=== PATIENT | female | born 1975 | race Caucasian/White ===

== ENCOUNTER 2018-04-09 19:36 | Emergency (ER) | payer MEDICAID, SELFPAY ==
[2018-04-09 19:37] VITALS: BP 163/87; PULSE 95; RESP 16; TEMP 36; O2SAT 100; BMI 36.3
[2018-04-09 19:42] VITALS: RESP 16
--- NOTE | 2018-04-09 19:48 | RAD_ITS ---
STUDY: X-RAY - RIGHT HAND, ATTENTION RIGHT DISTAL FIFTH FINGER REASON FOR EXAM: Female, 42 years old. Posttraumatic deformity TECHNIQUE: 3 view(s) of the finger were obtained. COMPARISON: None. FINDINGS: Normal metacarpal head. Normal metacarpophalangeal joint. Normal proximal phalanx. Normal middle phalanx. Normal distal phalanx. Normal proximal interphalangeal joint. Narrowed distal interphalangeal joint and osteophytic spurring. RAD/Finger(s) Min 2 Views IMPRESSION: Degenerative changes of the DIP joint. No acute fracture or dislocation Electronically Signed: Gwyn Jaquez MD at 20:36 EST , Service support ,
--- NOTE | 2018-04-09 20:10 | RAD_ITS ---
STUDY: X-RAY - RIGHT ELBOW REASON FOR EXAM: Female, 42 years old. Fall TECHNIQUE: 3 view(s) of the elbow. COMPARISON: None. FINDINGS: There is no evidence of fracture or dislocation. There are no significant degenerative changes. There are no radiodense foreign bodies. RAD/Elbow min 3 Views IMPRESSION: No fracture or dislocation. Electronically Signed: Tone Jauregui, at 20:31 EST Tel , Service support ,
--- NOTE | 2018-04-09 21:03 | ED.DCSUM_ITS ---
- ER Visit Summary Date of Service: 04/09/18 Chief Complaint: Right elbow pain History of Present Illness: The patient is a 42 F who states that 2 weeks ago she sustained a hyperextension injury while moving a washer of the right elbow. She states that never got back to baseline and then 2 days ago she sustained a fall coming down and injuring the right elbow again. She also notes pain to the right little finger. She notes she cannot fully extend at the elbow due to pain. She points posteriorly as the area that hurts. Physical Examination: Afebrile vital signs are stable 1. Please see T-sheet for full details 2. Right elbow shows tenderness over the olecranon and the lateral supracondylar region of the humerus. There is no obvious deformity. The radial head is nontender. She reports pain with supination and pronation as well as extension. 3. The right little finger demonstrates tenderness and bony deformities consistent with arthritic changes at the DIP joint. There appears to be a slight lateral deviation at the DIP joint of the distal phalanx. Neurovascular intact Test Results: X-rays of the elbow and the finger were negative for fracture. Emergency Department Course and Treatment: AlumaFoam splint will be placed. I suspect ligamentous injury. The elbow will use sling for comfort. Encouraged her not use it except for comfort purposes. Ice anti-inflammatories. Follow-up with primary care. Impression: 1. Right elbow sprain 2. Right little finger DIP sprain This note was generated with [employer] dictation software. It may contain incorrect words, spelling, and punctuation that were not noted in review of the chart prior to signing ED Disposition - Plan for ED Patient: Disposition: Home or Assisted Living Chief Complaint: Upper Extremity Injury Instructions: ED Sprain Elbow, ED Sprain Finger Referrals: Gwyn Mancia MD [Primary Care Provider] - 10-14 Days if not better
[2018-04-09 21:18] VITALS: BP 134/86; PULSE 84; RESP 16; O2SAT 99
--- OUTSIDE RECORDS SUMMARY | 2018-06-05 10:07 | XMS RPT_ITS ---
:1975 Author Organization OHIP Care Team Providers Name Role Phone FridleyOmkar Attending Unavailable Gwyn Small Primary Care Unavailable RUBY DICK Admitting Unavailable EDWARD CHOI Attending Unavailable LIZZY TAN Consulting Unavailable DANIEL BALDWIN (PA-C) Attending Unavailable GWYN SMALL Attending Unavailable GWYN SMALL Referring Unavailable JNANETH GREGORY (PA) Attending Unavailable GWYN SMALL Referring Unavailable JANNETH GREGORY (PA) Attending Unavailable GWYN SMALL Attending Unavailable GWYN SMALL Referring Unavailable JANNETH GREGORY (PA) Attending Unavailable JANNETH GREGORY (PA) Referring Unavailable MARYAM MCLAIN Admitting Unavailable MARYAM MCLAIN Attending Unavailable GWYN SMALL Primary Care Unavailable MARYAM MCLAIN Attending Unavailable GWYN SMALL Primary Care Unavailable ERIN MCCARTNEY Attending Unavailable GWYN SMALL Primary Care Unavailable PROBLEMS PROBLEMS DATE TYPE CONDITION / CODE ATTENDING STATUS SOURCE Active Bronchitis, not NA Active [facility] 8 specified as acute or Clinic Main chronic / J40(ICD-10) [facility] Active Jaw pain / EDWARD CHOI [facility] 8 R68.84(ICD-10) Clinic Other [facility] Active Abnormal EDWARD CHOI [facility] 8 electrocardiogram Clinic Other (ECG) (EKG) / [facility] R94.31(ICD-10) Repository Active Palpitations / EDWARD CHOI [facility] 8 R00.2(ICD-10) Clinic Other [facility] Active Other fpc NA [facility] 8 (current) drug therapy Clinic Main / Z79.899(ICD-10) [facility] Active Hypothyroidism, NA [facility] 8 unspecified / Clinic Main E03.9(ICD-10) [facility] Active Gastro-esophageal NA [facility] 8 reflux disease without Clinic Main esophagitis / [facility] K21.9(ICD-10) Repository Active Hyperlipidemia, NA [facility] 4 unspecified / Clinic Main E78.5(ICD-10) [facility] Main (PA-C) [facility] Admitting Loose body in knee, MARYAM MCLAIN [facility] 8 diagnosis right knee / Repository M23.41(ICD-9) Final Loose body in knee, MARYAM MCLAIN [facility] 8 diagnosis right knee / Repository (discharge) M23.41(ICD-9) Admitting Pain in right knee / NITINJEFFLAURYN MARYAM [facility] 7 diagnosis M25.561(ICD-9) Repository Final Pain in right knee / NITINJEFFLAURYN [facility] 7 diagnosis M25.561(ICD-9) Repository (discharge) Final Sprain of unspecified MARYAM MCLAIN [facility] 7 diagnosis site of right knee, Repository (discharge) initial encounter / S83.91XA(ICD-9) PROCEDURES PROCEDURES No Procedure Records FoundRESULTS RESULTS EMERGENCY DEPARTMENT Observed: 04/11/2018 Status: F Source: ERIN SUMMARY 8:16 AM [facility] REPOSITORY [facility] Medical Records Department [address] [place] [address] Emergency Department Summary 04/09/182101 MR#: [id number] Acct: [id number] Name: JOÃO CASTILLO Rep #: [id number] : 1975 42 From: Omkar Mantilla DO PCP: Gwyn Small MD Status: DEP ER - ER Visit Summary Date of Service: 04/09/18 Chief Complaint: Right elbow pain History of Present Illness: The patient is a 42 F who states that 2 weeks ago she sustained a hyperextension injury while moving a washer of the right elbow. She states that never got back to baseline and then 2 days ago she sustained a fall coming down and injuring the right elbow again. She also notes pain to the right little finger. She notes she cannot fully extend at the elbow due to pain. She points posteriorly as the area that hurts. Physical Examination: Afebrile vital signs are stable 1. Please see T-sheet for full details 2. Right elbow shows tenderness over the olecranon and the lateral supracondylar region of the humerus. There is no obvious deformity. The radial head is nontender. She reports pain with supination and pronation as well as extension. 3. The right little finger demonstrates tenderness and bony deformities consistent with arthritic changes at the DIP joint. There appears to be a slight lateral deviation at the DIP joint of the distal phalanx. Neurovascular intact Test Results: X-rays of the elbow and the finger were negative for fracture. Emergency Department Course and Treatment: AlumaFoam splint will be placed. I suspect ligamentous injury. The elbow will use sling for comfort. Encouraged her not use it except for comfort purposes. Ice anti-inflammatories. Follow-up with primary care. Impression: 1. Right elbow sprain 2. Right little finger DIP sprain This note was generated with scrible dictation software. It may contain incorrect words, spelling, and punctuation that were not noted in review of the chart prior to signing ED Disposition - Plan for ED Patient: Disposition: Home or Assisted Living Chief Complaint: Upper Extremity Injury Instructions: ED Sprain Elbow, ED Sprain Finger Referrals: Gwyn Small MD [Primary Care Provider] - 10-14 Days if not better What to do if you have Problems For any increased pain, shortness of breath, bleeding, nausea or vomiting, chest pain, or any unexpected problems, contact your Primary Care Provider. Call [facility] ([phone]) or report to the closest Emergency Room. Call 911 if necessary. 04/11/18 0816 <Electronically signed by Omkar Mantilla DO> Date Omkar Mantilla DO Cosigner Signature (If Indicated): Date CC: Gwyn Small MD ELBOW MIN 3 VIEWS Observed: 04/09/2018 Status: F Source: [place] 7:51 PM [facility] REPOSITORY [facility] Imaging Services [address] [place] [address] [place] [address] Elbow min 3 Views MR#: [id number] Acct: [id number] Name: JOÃO CASTILLO Brent Rep #: [id number] : 1975 F 42 From: Tone Jauregui MD PCP: Gwyn Small MD Status: REG ER Study: Elbow min 3 Views Date of Exam: 04/09/18 Exam# [id number] Ordering Dr: Omkar Mantilla DO STUDY: X-RAY - RIGHT ELBOW REASON FOR EXAM: Female, 42 years old. Fall TECHNIQUE: 3 view(s) of the elbow. COMPARISON: None. FINDINGS: There is no evidence of fracture or dislocation. There are no significant degenerative changes. There are no radiodense foreign bodies. RAD/Elbow min 3 Views IMPRESSION: No fracture or dislocation. Electronically Signed: Tone Jauregui, at 20:31 EST Tel , Service support , CC: Omkar Mantilla DO; Gwyn Small MD Mica Splitter: Signed FINGER(S) MIN 2 VIEWS Observed: 04/09/2018 Status: F Source: [place] 7:51 PM [facility] REPOSITORY [facility] Imaging Services [address] [address] Finger(s) Min 2 Views MR#: [id number] Acct: [id number] Name: JOÃO CASTILLO Rep #: [id number] : 1975 F 42 From: Gwyn Jaquez MD PCP: Gwyn Small MD Status: REG ER Study: Finger(s) Min 2 Views Date of Exam: 04/09/18 Exam# [id number] Ordering Dr: Omkar Mantilla DO STUDY: X-RAY - RIGHT HAND, ATTENTION RIGHT DISTAL FIFTH FINGER REASON FOR EXAM: Female, 42 years old. Posttraumatic deformity TECHNIQUE: 3 view(s) of the finger were obtained. COMPARISON: None. FINDINGS: Normal metacarpal head. Normal metacarpophalangeal joint. Normal proximal phalanx. Normal middle phalanx. Normal distal phalanx. Normal proximal interphalangeal joint. Narrowed distal interphalangeal joint and osteophytic spurring. RAD/Finger(s) Min 2 Views IMPRESSION: Degenerative changes of the DIP joint. No acute fracture or dislocation Electronically Signed: Gwyn Jaquez MD at 20:36 EST , Service support , CC: Omkar Mantilla DO; Gwyn Small MD Mica Splitter: Signed XR CHEST 2V FRONTAL/LAT Observed: 01/21/2018 Status: F Source: [place] 2:58 PM [facility] REPOSITORY * * *Final Report* * * DATE OF EXAM: Jan 21 2018 2:58PM WOX [id number] - XR CHEST 2V FRONTAL/LAT / PROCEDURE REASON: Bronchitis, not specified as acute or chronic * * * * Physician Interpretation * * * * EXAMINATION: CHEST RADIOGRAPH (2 VIEW FRONTAL and LATERAL) CLINICAL HISTORY: Bronchitis, not specified as acute or chronic MQ: XC2_5 Comparison: 10/30/2017 RESULT: Lines, tubes, and devices: None. Lungs and pleura: No consolidation. No lung mass. No pleural effusion. Cardiomediastinal silhouette: Normal cardiomediastinal silhouette. IMPRESSION: No acute radiographic abnormality. Mica Splitter: PSCB Transcribe Date/Time: Jan 21 2018 3:18P Dictated by : LEIDY OSULLIVAN MD This examination was interpreted and the report reviewed and electronically signed by: LEIDY OSULLIVAN MD on Jan 21 2018 3:19PM EST [id number] PROGRESS Observed: 01/21/2018 Status: COMPLETED Source: [place] 2:49 PM [facility] REPOSITORY HNO ID: [id number] Author: Ambrosio Lewis () Jason Awad Service: (none) Author Type: Client Technical Professional Type: Progress Notes Filed: 01/21/2018 2:58 PM Note Text: Radiology Service Progress Note PATIENT NAME: João Castillo DATE OF SERVICE: January 21, 2018 TIME: 2:49 PM PATIENT IDENTITY VERIFICATION COMPLETED USING TWO (2) METHODS: Patient confirmed name verbally and Date of . PATIENT GENDER DATA: Female. status: : No status: NO. PATIENT RELEVANT IMPLANT DATA REVIEWED: Not Applicable RADIOLOGY DEPARTMENT: General X-ray: Exam(s) Completed: Chest X-Ray PERIPHERAL IV DATA: Not applicable SIGNED BY: RT Isatu January 21, 2018 2:49 PM CNOV Observed: 01/21/2018 Status: COMPLETED Source: [place] 2:20 PM [facility] REPOSITORY Office Visit (FAMPWS) JOÃO CASTILLO ([id number]) 1975 F Date Time Provider Department 01/21/18 2:20 PM JASON GREGORY) LU During your visit today, we recorded the following information about you: Temperature Pulse Respiration Blood pressure 98.6 degrees 83/minute 16/minute 118/82 Weight 101.6 kg JANNETH GREGORY PA-C 01/21/2018 2:39 PM Signed Patient presents with: Cough: cough and chest congestion x 2 weeks 42 year old female with c/o URI sx over the last 2 weeks with Sore throat: No. Nasal congestion: Yes. Nasal drip: Yes. Sinus pain/ pressure: No. Headache No. Body aches Yes. Ear pain: pressure. Cough: Yes. Production: Yes. yellow Shortness of Breath: Yes. Wheezing: Yes. Fever: Yes. Tmax 101.8 last week. Hx asthma Yes. Hx pneumonia No. Smoker: No. OTC meds tried: mucinex. Was seen be EC on 01/16/18 and give doxycycline and prednisone. She is still taking the doxy but finished prednisone on Sunday. 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 Disp: 10 tablet Rfl: 0 doxycycline (VIBRA-TABS) 100 mg tablet Take 1 tablet by mouth twice daily for 10 days. Disp: 20 tablet Rfl: 0 Ofnbs-3-LFN-EPA-Fish Oil (FISH OIL) 1,000 mg (120 mg-180 mg) cap Take 2 g by mouth once daily. Disp: Rfl: therapeutic multivitamin w/ iron (THERAGRAN-M) 9 mg iron-400 mcg tablet Take 1 tablet by mouth once daily. Disp: Rfl: lisdexamfetamine (VYVANSE) 20 mg capsule Take 20 mg by mouth once daily. .(Dose INCREASED to 30mg, but patient has NOT filled new Rx yet) Disp: Rfl: albuterol HFA (PROAIR HFA) 90 mcg/actuation inhaler Inhale 2 Puffs as instructed every 4 hours as needed. Disp: 1 Inhaler Rfl: 2 esomeprazole (NEXIUM) 40 mg capsule Take 1 capsule by mouth once daily. Disp: 90 capsule Rfl: 1 fluticasone (FLOVENT HFA) 110 mcg/actuation inhaler Inhale 1 Puff as instructed twice daily. Disp: 1 Inhaler Rfl: 5 COMPOUNDED PRESCRIPTION CPAP with supplies at 9 CM H2O with humidification.Dx: G47.33 Disp: 1 Device Rfl: 0 COMPOUNDED PRESCRIPTION CPAP with supplies at 9 CM H2O with humidification.Dx: G47.33 Disp: 1 Device Rfl: 0 COMPOUNDED PRESCRIPTION CPAP with supplies at 9 CM H2O with humidification.Dx: G47.33 Disp: 1 Device Rfl: 0 metoprolol tartrate, short acting, (LOPRESSOR) 25 mg tablet Take 0.5 tablets by mouth twice daily as needed. (Patient not taking: Reported on 01/16/2018 ) Disp: 30 tablet Rfl: 0 No current facility-administered medications for this visit. ROS: SEE HPI OBJECTIVE: BP 118/82 (BP Site: Left Arm, BP Position: Sitting, BP Cuff Size: Large Adult) Pulse 83 Temp 37 ?C (98.6 ?F) (Tympanic) Resp 16 Wt 101.6 kg (224 lb) LMP 01/26/2011 SpO2 98% BMI 36.15 kg/m? General appearance: Well appearing, alert, in no acute distress, well-hydrated, well nourished., Head: Normocephalic, no masses, lesions, tenderness or abnormalities; Ears: External ears normal, canals clear, TM's normal Nose/Sinuses: Nares normal, septum midline, mucosa normal, no drainage or sinus tenderness Oropharynx: Lips, mucosa, and tongue normal, teeth and gums normal, oropharynx normal Neck: Supple, no adenopathy; thyroid symmetric, normal size, no bruits Lungs: Lungs clear to auscultation. No wheezing, rhonchi, rales Heart: RRR without murmur, gallop, or rubs. No ectopy ASSESSMENT/PLAN: 1. Bronchitis - ICD9: 490, ICD10: J40 Will switch antibiotic to levaquin CXR today May use cough medication as needed. - XR CHEST 2V FRONTAL/LAT - CODEINE 10 MG-GUAIFENESIN 100 MG/5 ML ORAL LIQUID Prescription instructions reviewed with patient as applicable. Patient advised if symptoms do not improve or if symptoms worsen sooner, to contact their primary care physician. Potential red flag symptoms discussed with the patient. Reviewed appropriate action plan to take if red flag symptoms occur. Patient agreeable to treatment plan. JANNETH GREGORY PA-C Referring Provider: SELF [200] Allergies As of Date: 01/21/2018 Noted Allergy Reaction KEFLEX (CEPHALEXIN) 04/29/2010 10 - Anaphylaxis PENICILLINS 04/29/2010 2 - Rash Comments: 10/30/17: patient reports skin test performed in early 2016 showed she is not allergic to penicillins anymore, but patient has not tried any pencillin since skin test results. TAPE (ADHESIVE TAPE (ROSINS)) 05/16/2012 2 - Rash ADDERALL (DEXTROAMPHETAMINE-AMPHE*07/30/2017 14 - Other: See Comments Comments: elevated blood pressure CELEXA (CITALOPRAM HYDROBROMIDE) 11/08/2017 14 - Other: See Comments Comments: Syncope and diaphoresis SEASONAL ALLERGIES 05/23/2012 14 - Other: See Comments Comments: Cats, Molds VYVANSE (LISDEXAMFETAMINE) 01/21/2018 14 - Other: See Comments Comments: Tachycardia- per patient. ? ZOLOFT (SERTRALINE HCL) 06/12/2014 14 - Other: See Comments Comments: Made her feel horrible Date Reviewed: 01/21/2018 Reviewed by: Barry Gregory - Fully Assessed Reason for Visit: Cough [28] Cmt: cough and chest congestion x 2 weeks Primary Visit Diagnosis:Bronchitis [J40] Order(s):XR CHEST 2V FRONTAL/LAT [[id number]] Order #: [id number] FUTURE levoFLOXacin (LEVAQUIN) 500 mg tabletTake 1 tablet by mouth once daily for 7 days.Disp: 7 tabletRfl: 0 codeine-guaiFENesin (ROBITUSSIN AC) 10-100 mg/5 mL syrupTake 5-10 mL by mouth four times daily as needed for Cough for up to 7 days. May cause drowsiness.Disp: 120 mLRfl: 0 Prescriptions as of 01/21/2018 Sig: OMEGA 0-UDP-QLB-FISH OIL 1,00* Take 2 g by mouth once daily. MULTIVITAMIN-IRON 9 MG-FOLIC * Take 1 tablet by mouth once d* ALBUTEROL SULFATE HFA 90 MCG/* Inhale 2 Puffs as instructed * ESOMEPRAZOLE MAGNESIUM 40 MG * Take 1 capsule by mouth once * FLUTICASONE 110 MCG/ACTUATION* Inhale 1 Puff as instructed t* COMPOUNDED PRESCRIPTION CPAP with supplies at 9 CM H2* COMPOUNDED PRESCRIPTION CPAP with supplies at 9 CM H2* COMPOUNDED PRESCRIPTION CPAP with supplies at 9 CM H2* LEVOFLOXACIN 500 MG TABLET Take 1 tablet by mouth once d* CODEINE 10 MG-GUAIFENESIN 100* Take 5-10 mL by mouth four ti* METOPROLOL TARTRATE 25 MG TAB* Take 0.5 tablets by mouth twi* Patient not taking: Reported on 01/16/2018 Medication notes this encounter LISDEXAMFETAMINE 20 MG CAPSULE >> JANNETH GREGORY PA-C 01/21/2018 2:20 PM tachycardia Problem List As Of Date 01/21/2018 Noted Resolved Allergic rhinitis [J30.9] INVALID FOR* Priority: B Mild persistent asthma [J45.30] INVALID FOR* Priority: A More... Dyslipidemia [E78.5] INVALID FOR* Priority: A Tic douloureux [G50.0] Priority: A More... Multiple lung nodules [R91.8] Priority: B More... More... Routine gynecological examination [Z01.419] INVALID FOR* Priority: D More... Incisional hernia without mention of obstructio*INVALID FOR* ADHD (attention deficit hyperactivity disorder)*INVALID FOR* Priority: A More... Hyperopia with astigmatism - Both Eyes [H52.00,*INVALID FOR* SOLANGE (obstructive sleep apnea) AHI 17.1 [G47.33] INVALID FOR* Priority: B More... Gastroesophageal reflux disease without esophag*INVALID FOR* Priority: A More... Acquired hypothyroidism [E03.9] INVALID FOR* Priority: A Current use of proton pump inhibitor [Z79.899] INVALID FOR* Palpitations [R00.2] INVALID FOR*10/31/2017 More... Prescriptions ordered this encounter Disp Refills Start End LEVOFLOXACIN 500 MG TABLET 7 ta* 0 01/21/2018 01/28/2018 Route: ORAL Sig: Take 1 tablet by mouth once daily for 7 days. CODEINE 10 MG-GUAIFENESIN 100 MG/5 M* 120 * 0 01/21/2018 01/28/2018 Class: Print RX Route: ORAL Sig: Take 5-10 mL by mouth four times daily as needed for Cough for up to 7 days. May cause drowsiness. Medications Discontinued During This Encounter lisdexamfetamine (VYVANSE) 20 mg cap* 01/21/2018 Class: Historical Med Route: ORAL Sig: Take 20 mg by mouth once daily. . (Dose INCREASED to 30mg, but patient has NOT filled new Rx yet) Disc: Side Effects doxycycline (VIBRA-TABS) 100 mg tabl* 20 t* 0 01/16/2018 01/21/2018 Route: ORAL Sig: Take 1 tablet by mouth twice daily for 10 days. Disc: Reason for discontinue is not on file. predniSONE (DELTASONE) 20 mg tablet 10 t* 0 01/16/2018 01/21/2018 Route: ORAL Sig: Take 2 tablets by mouth once daily for 5 days. Disc: Reason for discontinue is not on file. Letter Text Janneth Gregory PA-C [address], [place] [address] 01/21/2018 João Castillo CC# [id number] [place] [address] TO WHOM IT MAY CONCERN: This is to certify that Ms. João Castillo has been under my care for illness and was unable to work01/19/18 Sincerely yours, Janneth Gregory PA-C Encounter Status:Closed by JANNETH GONZALES on 01/21/18 PROGRESS Observed: 01/21/2018 Status: COMPLETED Source: [place] 2:12 PM [facility] REPOSITORY HNO ID: [id number] Author: Barry Gregory Service: (none) Author Type: Physician Yard Hostler Type: Progress Notes Filed: 01/21/2018 2:39 PM Note Text: Patient presents with: Cough: cough and chest congestion x 2 weeks 42 year old female with c/o URI sx over the last 2 weeks with Sore throat: No. Nasal congestion: Yes. Nasal drip: Yes. Sinus pain/ pressure: No. Headache No. Body aches Yes. Ear pain: pressure. Cough: Yes. Production: Yes. yellow Shortness of Breath: Yes. Wheezing: Yes. Fever: Yes. Tmax 101.8 last week. Hx asthma Yes. Hx pneumonia No. Smoker: No. OTC meds tried: mucinex. Was seen be EC on 01/16/18 and give doxycycline and prednisone. She is still taking the doxy but finished prednisone on Sunday. 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 Disp: 10 tablet Rfl: 0 doxycycline (VIBRA-TABS) 100 mg tablet Take 1 tablet by mouth twice daily for 10 days. Disp: 20 tablet Rfl: 0 Hskqf-4-KEI-EPA-Fish Oil (FISH OIL) 1,000 mg (120 mg-180 mg) cap Take 2 g by mouth once daily. Disp: Rfl: therapeutic multivitamin w/ iron (THERAGRAN-M) 9 mg iron-400 mcg tablet Take 1 tablet by mouth once daily. Disp: Rfl: lisdexamfetamine (VYVANSE) 20 mg capsule Take 20 mg by mouth once daily. .(Dose INCREASED to 30mg, but patient has NOT filled new Rx yet) Disp: Rfl: albuterol HFA (PROAIR HFA) 90 mcg/actuation inhaler Inhale 2 Puffs as instructed every 4 hours as needed. Disp: 1 Inhaler Rfl: 2 esomeprazole (NEXIUM) 40 mg capsule Take 1 capsule by mouth once daily. Disp: 90 capsule Rfl: 1 fluticasone (FLOVENT HFA) 110 mcg/actuation inhaler Inhale 1 Puff as instructed twice daily. Disp: 1 Inhaler Rfl: 5 COMPOUNDED PRESCRIPTION CPAP with supplies at 9 CM H2O with humidification.Dx: G47.33 Disp: 1 Device Rfl: 0 COMPOUNDED PRESCRIPTION CPAP with supplies at 9 CM H2O with humidification.Dx: G47.33 Disp: 1 Device Rfl: 0 COMPOUNDED PRESCRIPTION CPAP with supplies at 9 CM H2O with humidification.Dx: G47.33 Disp: 1 Device Rfl: 0 metoprolol tartrate, short acting, (LOPRESSOR) 25 mg tablet Take 0.5 tablets by mouth twice daily as needed. (Patient not taking: Reported on 01/16/2018 ) Disp: 30 tablet Rfl: 0 No current facility-administered medications for this visit. ROS: SEE HPI OBJECTIVE: BP 118/82 (BP Site: Left Arm, BP Position: Sitting, BP Cuff Size: Large Adult) Pulse 83 Temp 37 ?C (98.6 ?F) (Tympanic) Resp 16 Wt 101.6 kg (224 lb) LMP 01/26/2011 SpO2 98% BMI 36.15 kg/m? General appearance: Well appearing, alert, in no acute distress, well-hydrated, well nourished., Head: Normocephalic, no masses, lesions, tenderness or abnormalities; Ears: External ears normal, canals clear, TM's normal Nose/Sinuses: Nares normal, septum midline, mucosa normal, no drainage or sinus tenderness Oropharynx: Lips, mucosa, and tongue normal, teeth and gums normal, oropharynx normal Neck: Supple, no adenopathy; thyroid symmetric, normal size, no bruits Lungs: Lungs clear to auscultation. No wheezing, rhonchi, rales Heart: RRR without murmur, gallop, or rubs. No ectopy ASSESSMENT/PLAN: 1. Bronchitis - ICD9: 490, ICD10: J40 Will switch antibiotic to levaquin CXR today May use cough medication as needed. - XR CHEST 2V FRONTAL/LAT - CODEINE 10 MG-GUAIFENESIN 100 MG/5 ML ORAL LIQUID Prescription instructions reviewed with patient as applicable. Patient advised if symptoms do not improve or if symptoms worsen sooner, to contact their primary care physician. Potential red flag symptoms discussed with the patient. Reviewed appropriate action plan to take if red flag symptoms occur. Patient agreeable to treatment plan. JANNETH GREGORY PA-C CNCO Observed: 01/21/2018 Status: COMPLETED Source: [place] 12:00 AM [facility] REPOSITORY Letter Text [facility] ERWIN Marsh [address], [place] [address] 01/16/2018 TO WHOM IT MAY CONCERN: This is to confirm that João Castillo had an appointment and was seen at the [facility] in the Department of Urgent Care by ERWIN Marsh on 01/16/2018 Sincerely yours, ERWIN Marsh PROGRESS Observed: 01/16/2018 Status: COMPLETED Source: [place] 1:47 PM [facility] REPOSITORY HNO ID: [id number] Author: Yanna Mercado) Momo Service: (none) Author Type: Physician Yard Hostler Type: Progress Notes Filed: 01/16/2018 4:13 PM Note Text: Subjective HPI Pt presents with headache, congestion, chills for 2 weeks. She has a mild cough. No nvd. She had a fever the first two days but nothing since. She is a former smoker quit in 2011. She also has asthma, no wheezing. No cp or SOB. Her teeth hurt from her sinuses as well. Review of Systems HENT: Positive for congestion, sinus pain and sore throat. Respiratory: Positive for cough. All other systems reviewed and are negative. PAST MEDICAL HISTORY Diagnosis Date - Asthma - Attention deficit hyperactivity disorder, predominantly inattentive type - Carpal tunnel syndrome - Environmental allergies - GERD (gastroesophageal reflux disease) on ppi - Hyperlipidemia - Hypothyroid - Multiple lung nodules followed by pulmonology - Tardive dyskinesia Ativan - Tic douloureux myoclonus jerk, more with stress, caffeine Current Outpatient Prescriptions: Syzdu-8-FAV-EPA-Fish Oil (FISH OIL) 1,000 mg (120 mg-180 mg) cap Take 2 g by mouth once daily. Disp: Rfl: therapeutic multivitamin w/ iron (THERAGRAN-M) 9 mg iron-400 mcg tablet Take 1 tablet by mouth once daily. Disp: Rfl: albuterol HFA (PROAIR HFA) 90 mcg/actuation inhaler Inhale 2 Puffs as instructed every 4 hours as needed. Disp: 1 Inhaler Rfl: 2 esomeprazole (NEXIUM) 40 mg capsule Take 1 capsule by mouth once daily. Disp: 90 capsule Rfl: 1 fluticasone (FLOVENT HFA) 110 mcg/actuation inhaler Inhale 1 Puff as instructed twice daily. Disp: 1 Inhaler Rfl: 5 COMPOUNDED PRESCRIPTION CPAP with supplies at 9 CM H2O with humidification.Dx: G47.33 Disp: 1 Device Rfl: 0 COMPOUNDED PRESCRIPTION CPAP with supplies at 9 CM H2O with humidification.Dx: G47.33 Disp: 1 Device Rfl: 0 COMPOUNDED PRESCRIPTION CPAP with supplies at 9 CM H2O with humidification.Dx: G47.33 Disp: 1 Device Rfl: 0 predniSONE (DELTASONE) 20 mg tablet Take 2 tablets by mouth once daily for 5 days. Disp: 10 tablet Rfl: 0 doxycycline (VIBRA-TABS) 100 mg tablet Take 1 tablet by mouth twice daily for 10 days. Disp: 20 tablet Rfl: 0 metoprolol tartrate, short acting, (LOPRESSOR) 25 mg tablet Take 0.5 tablets by mouth twice daily as needed. (Patient not taking: Reported on 01/16/2018 ) Disp: 30 tablet Rfl: 0 lisdexamfetamine (VYVANSE) 20 mg capsule Take 20 mg by mouth once daily. .(Dose INCREASED to 30mg, but patient has NOT filled new Rx yet) Disp: Rfl: No current facility-administered medications for this visit. PAST SURGICAL HISTORY Procedure Laterality Date - HYSTERECTOMY HX May 2012 lap:fibroids, no cancer, uterus and cervix only - KNEE RIGHT OP SURGERY arthroscopy - REMOVAL GALLBLADDER lap constantino - REPAIR INCISIONAL HERNIA 03/30/2014 - RHINOPLASTY 2004 deviated septum - TONSILLECTOMY HX FAMILY HISTORY Problem Relation Age of Onset - Hypertension Mother - other (colorectal cancer [Other]) Other Aunt - Hypertension Maternal Grandmother - Stroke Maternal Grandmother - Hypertension Maternal Grandfather - Diabetes Maternal Grandfather - Glaucoma Maternal Grandfather - Breast Cancer Maternal Aunt 6 sisters have had breast cancer - Breast Cancer Mother - Diabetes Maternal Grandmother Social History Substance Use Topics - Smoking status: Former Smoker Packs/day: 0.20 Years: 10.00 Types: Cigarettes Quit date: 04/22/2012 - Smokeless tobacco: Never Used - Alcohol use Yes Comment: special occasions BP 130/80 Pulse 86 Temp 36.9 ?C (98.5 ?F) (Tympanic) Resp 16 Wt 103 kg (227 lb) LMP 01/26/2011 SpO2 97% BMI 36.64 kg/m? Objective Physical Exam Constitutional: She is oriented to person, place, and time and well-developed, well-nourished, and in no distress. HENT: Head: Normocephalic and atraumatic. Right Ear: Tympanic membrane, external ear and ear canal normal. Left Ear: External ear and ear canal normal. A middle ear effusion is present. Nose: Mucosal edema and rhinorrhea present. Right sinus exhibits maxillary sinus tenderness. Left sinus exhibits maxillary sinus tenderness. Mouth/Throat: Uvula is midline, oropharynx is clear and moist and mucous membranes are normal. Cardiovascular: Normal rate, regular rhythm and normal heart sounds. Pulmonary/Chest: Effort normal and breath sounds normal. Neurological: She is alert and oriented to person, place, and time. Skin: Skin is warm and dry. Psychiatric: Affect and judgment normal. Nursing note and vitals reviewed. ASSESSMENT/PLAN: 1. Acute non-recurrent maxillary sinusitis - ICD9: 461.0, ICD10: J01.00 - Will begin treatment with Doxycline and prednisone. While taking prednisone patient was informed not to take any nsaids. - Supportive care with plenty of fluids, rest, and analgesia prn. - Follow up in one week if symptoms persist or worsen. Yanna Harden PA-C CNOV Observed: 01/16/2018 Status: COMPLETED Source: [place] 1:45 PM [facility] REPOSITORY Office Visit (WSTR) JOÃO CASTILLO ([id number]) 1975 F Date Time Provider Department 01/16/18 1:45 PM YANNA HARDEN (ERWIN) [facility]STR During your visit today, we recorded the following information about you: Temperature Pulse Respiration Blood pressure 98.5 degrees 86/minute 16/minute 130/80 Weight 103 kg Yanna Harden PA-C 01/16/2018 4:13 PM Signed Subjective HPI Pt presents with headache, congestion, chills for 2 weeks. She has a mild cough. No nvd. She had a fever the first two days but nothing since. She is a former smoker quit in 2011. She also has asthma, no wheezing. No cp or SOB. Her teeth hurt from her sinuses as well. Review of Systems HENT: Positive for congestion, sinus pain and sore throat. Respiratory: Positive for cough. All other systems reviewed and are negative. PAST MEDICAL HISTORY Diagnosis Date - Asthma - Attention deficit hyperactivity disorder, predominantly inattentive type - Carpal tunnel syndrome - Environmental allergies - GERD (gastroesophageal reflux disease) on ppi - Hyperlipidemia - Hypothyroid - Multiple lung nodules followed by pulmonology - Tardive dyskinesia Ativan - Tic douloureux myoclonus jerk, more with stress, caffeine Current Outpatient Prescriptions: Rpjgf-2-ECJ-EPA-Fish Oil (FISH OIL) 1,000 mg (120 mg-180 mg) cap Take 2 g by mouth once daily. Disp: Rfl: therapeutic multivitamin w/ iron (THERAGRAN-M) 9 mg iron-400 mcg tablet Take 1 tablet by mouth once daily. Disp: Rfl: albuterol HFA (PROAIR HFA) 90 mcg/actuation inhaler Inhale 2 Puffs as instructed every 4 hours as needed. Disp: 1 Inhaler Rfl: 2 esomeprazole (NEXIUM) 40 mg capsule Take 1 capsule by mouth once daily. Disp: 90 capsule Rfl: 1 fluticasone (FLOVENT HFA) 110 mcg/actuation inhaler Inhale 1 Puff as instructed twice daily. Disp: 1 Inhaler Rfl: 5 COMPOUNDED PRESCRIPTION CPAP with supplies at 9 CM H2O with humidification.Dx: G47.33 Disp: 1 Device Rfl: 0 COMPOUNDED PRESCRIPTION CPAP with supplies at 9 CM H2O with humidification.Dx: G47.33 Disp: 1 Device Rfl: 0 COMPOUNDED PRESCRIPTION CPAP with supplies at 9 CM H2O with humidification.Dx: G47.33 Disp: 1 Device Rfl: 0 predniSONE (DELTASONE) 20 mg tablet Take 2 tablets by mouth once daily for 5 days. Disp: 10 tablet Rfl: 0 doxycycline (VIBRA-TABS) 100 mg tablet Take 1 tablet by mouth twice daily for 10 days. Disp: 20 tablet Rfl: 0 metoprolol tartrate, short acting, (LOPRESSOR) 25 mg tablet Take 0.5 tablets by mouth twice daily as needed. (Patient not taking: Reported on 01/16/2018 ) Disp: 30 tablet Rfl: 0 lisdexamfetamine (VYVANSE) 20 mg capsule Take 20 mg by mouth once daily. .(Dose INCREASED to 30mg, but patient has NOT filled new Rx yet) Disp: Rfl: No current facility-administered medications for this visit. PAST SURGICAL HISTORY Procedure Laterality Date - HYSTERECTOMY HX May 2012 lap:fibroids, no cancer, uterus and cervix only - KNEE RIGHT OP SURGERY arthroscopy - REMOVAL GALLBLADDER lap constantino - REPAIR INCISIONAL HERNIA 03/30/2014 - RHINOPLASTY 2004 deviated septum - TONSILLECTOMY HX FAMILY HISTORY Problem Relation Age of Onset - Hypertension Mother - other (colorectal cancer [Other]) Other Aunt - Hypertension Maternal Grandmother - Stroke Maternal Grandmother - Hypertension Maternal Grandfather - Diabetes Maternal Grandfather - Glaucoma Maternal Grandfather - Breast Cancer Maternal Aunt 6 sisters have had breast cancer - Breast Cancer Mother - Diabetes Maternal Grandmother Social History Substance Use Topics - Smoking status: Former Smoker Packs/day: 0.20 Years: 10.00 Types: Cigarettes Quit date: 04/22/2012 - Smokeless tobacco: Never Used - Alcohol use Yes Comment: special occasions BP 130/80 Pulse 86 Temp 36.9 ?C (98.5 ?F) (Tympanic) Resp 16 Wt 103 kg (227 lb) LMP 01/26/2011 SpO2 97% BMI 36.64 kg/m? Objective Physical Exam Constitutional: She is oriented to person, place, and time and well-developed, well-nourished, and in no distress. HENT: Head: Normocephalic and atraumatic. Right Ear: Tympanic membrane, external ear and ear canal normal. Left Ear: External ear and ear canal normal. A middle ear effusion is present. Nose: Mucosal edema and rhinorrhea present. Right sinus exhibits maxillary sinus tenderness. Left sinus exhibits maxillary sinus tenderness. Mouth/Throat: Uvula is midline, oropharynx is clear and moist and mucous membranes are normal. Cardiovascular: Normal rate, regular rhythm and normal heart sounds. Pulmonary/Chest: Effort normal and breath sounds normal. Neurological: She is alert and oriented to person, place, and time. Skin: Skin is warm and dry. Psychiatric: Affect and judgment normal. Nursing note and vitals reviewed. ASSESSMENT/PLAN: 1. Acute non-recurrent maxillary sinusitis - ICD9: 461.0, ICD10: J01.00 - Will begin treatment with Doxycline and prednisone. While taking prednisone patient was informed not to take any nsaids. - Supportive care with plenty of fluids, rest, and analgesia prn. - Follow up in one week if symptoms persist or worsen. Yanna Harden PA-C Referring Provider: SELF [[id number]] Allergies As of Date: 01/16/2018 Noted Allergy Reaction KEFLEX (CEPHALEXIN) 04/29/2010 10 - Anaphylaxis PENICILLINS 04/29/2010 2 - Rash Comments: 10/30/17: patient reports skin test performed in early 2016 showed she is not allergic to penicillins anymore, but patient has not tried any pencillin since skin test results. TAPE (ADHESIVE TAPE (ROSINS)) 05/16/2012 2 - Rash ADDERALL (DEXTROAMPHETAMINE-AMPHE*07/30/2017 14 - Other: See Comments Comments: elevated blood pressure CELEXA (CITALOPRAM HYDROBROMIDE) 11/08/2017 14 - Other: See Comments Comments: Syncope and diaphoresis SEASONAL ALLERGIES 05/23/2012 14 - Other: See Comments Comments: Cats, Molds ZOLOFT (SERTRALINE HCL) 06/12/2014 14 - Other: See Comments Comments: Made her feel horrible Date Reviewed: 01/16/2018 Reviewed by: Kira Jesus Ma - Fully Assessed Reason for Visit: Cough [28] Cmt: head congestion, chest congestion, headache and chills x 2 weeks Primary Visit Diagnosis:Acute non-recurrent maxillary sinusitis [J01.00] Order(s):predniSONE (DELTASONE) 20 mg tabletTake 2 tablets by mouth once daily for 5 days.Disp: 10 tabletRfl: 0 doxycycline (VIBRA-TABS) 100 mg tabletTake 1 tablet by mouth twice daily for 10 days.Disp: 20 tabletRfl: 0 Prescriptions as of 01/16/2018 Sig: OMEGA 0-HKW-PCB-FISH OIL 1,00* Take 2 g by mouth once daily. MULTIVITAMIN-IRON 9 MG-FOLIC * Take 1 tablet by mouth once d* ALBUTEROL SULFATE HFA 90 MCG/* Inhale 2 Puffs as instructed * ESOMEPRAZOLE MAGNESIUM 40 MG * Take 1 capsule by mouth once * FLUTICASONE 110 MCG/ACTUATION* Inhale 1 Puff as instructed t* COMPOUNDED PRESCRIPTION CPAP with supplies at 9 CM H2* COMPOUNDED PRESCRIPTION CPAP with supplies at 9 CM H2* COMPOUNDED PRESCRIPTION CPAP with supplies at 9 CM H2* PREDNISONE 20 MG TABLET Take 2 tablets by mouth once * DOXYCYCLINE HYCLATE 100 MG TA* Take 1 tablet by mouth twice * METOPROLOL TARTRATE 25 MG TAB* Take 0.5 tablets by mouth twi* Patient not taking: Reported on 01/16/2018 LISDEXAMFETAMINE 20 MG CAPSULE Take 20 mg by mouth once desean* Problem List As Of Date 01/16/2018 Noted Resolved Allergic rhinitis [J30.9] INVALID FOR* Priority: B Mild persistent asthma [J45.30] INVALID FOR* Priority: A More... Dyslipidemia [E78.5] INVALID FOR* Priority: A Tic douloureux [G50.0] Priority: A More... Multiple lung nodules [R91.8] Priority: B More... More... Routine gynecological examination [Z01.419] INVALID FOR* Priority: D More... Incisional hernia without mention of obstructio*INVALID FOR* ADHD (attention deficit hyperactivity disorder)*INVALID FOR* Priority: A More... Hyperopia with astigmatism - Both Eyes [H52.00,*INVALID FOR* SOLANGE (obstructive sleep apnea) AHI 17.1 [G47.33] INVALID FOR* Priority: B More... Gastroesophageal reflux disease without esophag*INVALID FOR* Priority: A More... Acquired hypothyroidism [E03.9] INVALID FOR* Priority: A Current use of proton pump inhibitor [Z79.899] INVALID FOR* Palpitations [R00.2] INVALID FOR*10/31/2017 More... Prescriptions ordered this encounter Disp Refills Start End PREDNISONE 20 MG TABLET 10 t* 0 01/16/2018 01/21/2018 Route: ORAL Sig: Take 2 tablets by mouth once daily for 5 days. DOXYCYCLINE HYCLATE 100 MG TABLET 20 t* 0 01/16/2018 01/26/2018 Route: ORAL Sig: Take 1 tablet by mouth twice daily for 10 days. Encounter Status:Closed by YANNA HARDEN PA-C on 01/16/18 TSH Collected: 11/08/2017 Status: F Source: [place] 12:[facility] PM [facility] TYPE CODE TESTS RESULT OUT OF RANGE REFERENCE UNITS LAB TSH 0.400-5.500 uU/mL TSH 1.320 Result Comment: If the patient is , TSH reference range varies by gestational period: First Trimester 0.100-2.500 uU/mL Second Trimester 0.200-3.000 uU/mL Third Trimester 0.300-3.000 uU/mL References: 1. Butler L, Darcy M, Rizwan EK, et al. Management of Thyroid Dysfunction during and : An Endocrine Society Clinical Practice Guideline. J Clin Endocrinol Metab, 2012:97:9845-3608. [address] [place]. Overview of thyroid disease in . UpToDate. 2016. Accessed on October 29, 2015. Performed By: #### TSH, FT4 #### [facility] [address] [place], [place] [address] FREE T4 Collected: 11/08/2017 Status: F Source: [place] 12:35 PM [facility] REPOSITORY TYPE CODE TESTS RESULT OUT OF RANGE REFERENCE UNITS LAB FT4 0.9-1.7 ng/dL Free T4 1.0 Performed By: #### TSH, FT4 #### [facility] [address] [place], [place] [address] CNOV Observed: 11/08/2017 Status: COMPLETED Source: [place] 11:40 AM [facility] REPOSITORY Office Visit (FAMPWS) JOÃO CASTILLO ([id number]) 1975 F Date Time Provider Department 11/08/17 11:40 AM GWYN SMALL FAMPWS During your visit today, we recorded the following information about you: Pulse Respiration Blood pressure Weight 78/minute 16/minute 130/78 103 kg Gwyn Small MD 11/08/2017 12:39 PM Signed Transitional Care Management Progress Note The patients TCM visit was performed within the 7 days of discharge. Patient's Date of discharge: 10/31/2017 Date of initial coordinator contact after discharge: Discharge diagnosis: palpitations Medication review completed Yes Elizabeth Fletcher Ma Provider Documentation: In follow-up of hospitalization, João Castillo is a 41 year old female with the chief complaint of hospital f/u I have reviewed the patient?s last hospital course including diagnostic testing performed during this hospitalization, their discharge medications, and my assessment and plan with the patient and any family members present at today?s visit. 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 Provider Action/FYI: Pt presented to [facility] ER on 10/30/17 and admitted for palpitations. Under went cardiac stress echo which was normal, no electrolyte derangements, TSH normal in July. Monitored on telemetry with 2 shots bursts of sinus tachycardia. Cardio consult obtained with recommendations of outpatient 30 day holter monitor to be arranged. Concerns that the palpitations may be caused by use of ADHD medication Vyvanse and albuterol inhaler. Pt was started on low dose Beta vidhya, Lopressor 25 mg half tablet BID. Needs to follow up with PCP to discuss a trial off of vyvanse. Discharged on 10/31/17. ? ? Initial contact with patient post discharge, spoke to left message for pt to call back. Needs appt for hospital follow up in 7-14 days of discharged which was 10/31/17. Additional message left on 11/05/17 for pt to call back to set up hospital follow up appt. Patient identified by name and . ? SUMMARY: -Pt discharged from [facility] on 10/31/17. -Admitted for: ? 1. Palpitations Do you have a hospital follow up appointment with your PCP? Appointment No. Assist patient with follow-up appointment within 1-14 calendar days from discharge date. If patient prefers not to schedule follow- up appointment at this time, notify PCP. ? MEDICATIONS: Many patients have questions or concerns about their medications once they are home. Were you prescribed any new medications? If yes, what are those medications? Metoprolol tartrate 25 mg, half tablet twice daily ? Were you told to hold any medications? No Were any of your medications discontinued? No ? Do you have any questions about getting or taking your medications? ? Your discharge instructions/After visit Summary (AVS) are important in guiding you through the recovery process. Is there anything I might help you understand? No ? Do you have all the necessary equipment and supplies at home? Yes ? Medical records from recent hospitalization: Placed for provider to review Chief Complaint Patient presents with: Hospital Discharge: [place]: Heart palpatations HPI João Castillo is a 41 year old female who presents here today for Hospital Discharge Follow up.. Since being released on 10/31/2017 she has not been taking her vyvanse and had been off of it 3-4 days prior to admission. With a 1/2 life of 12 hr would be out of her system by now. Patient still having the palpitations with the chest pain toady. Not short of breath but breathing feels heavy too her. Under a lot of stress with work and going back to school. Will notice similar symptoms with taking a test in school. Not drinking any caffeine including energy drinks. Patient not aware of any family Hx of heart arhythmias. Does not now Hx from dads side. TSH was not checked doing hospital stay from what I can find but CMP, Mg and CBC were all ok. Past medical history, appointments, medications, allergies reviewed. Previous Medical History PAST MEDICAL HISTORY Diagnosis Date - Asthma - Attention deficit hyperactivity disorder, predominantly inattentive type - Carpal tunnel syndrome - Environmental allergies - GERD (gastroesophageal reflux disease) on ppi - Hyperlipidemia - Hypothyroid - Multiple lung nodules followed by pulmonology - Tardive dyskinesia Ativan - Tic douloureux myoclonus jerk, more with stress, caffeine Previous Surgical History PAST SURGICAL HISTORY Procedure Laterality Date - HYSTERECTOMY HX May 2012 lap:fibroids, no cancer, uterus and cervix only - KNEE RIGHT OP SURGERY arthroscopy - REMOVAL GALLBLADDER lap constantino - REPAIR INCISIONAL HERNIA 03/30/2014 - RHINOPLASTY 2004 deviated septum - TONSILLECTOMY HX Family History FAMILY HISTORY Problem Relation Age of Onset - Hypertension Mother - colorectal cancer [Other] [OTHER] Other Aunt - Hypertension Maternal Grandmother - Stroke Maternal Grandmother - Hypertension Maternal Grandfather - Diabetes Maternal Grandfather - Glaucoma Maternal Grandfather - Breast Cancer Maternal Aunt 6 sisters have had breast cancer - Breast Cancer Mother - Diabetes Maternal Grandmother Patient Allergies ALLERGIES Allergen Reactions - Keflex [Cephalexin] Anaphylaxis - Penicillins Rash 10/30/17: patient reports skin test performed in early 2016 showed she is not allergic to penicillins anymore, but patient has not tried any pencillin since skin test results. - Tape [Adhesive Tape* Rash - Adderall [Dextroamp* Other: See Comments elevated blood pressure - Seasonal Allergies Other: See Comments Cats, Molds - Zoloft [Sertraline * Other: See Comments Made her feel horrible Current Medications Current Outpatient Prescriptions on File Prior to Visit: Hshoz-9-NDM-EPA-Fish Oil (FISH OIL) 1,000 mg (120 mg-180 mg) cap Take 2 g by mouth once daily. therapeutic multivitamin w/ iron (THERAGRAN-M) 9 mg iron-400 mcg tablet Take 1 tablet by mouth once daily. lisdexamfetamine (VYVANSE) 20 mg capsule Take 20 mg by mouth once daily. .(Dose INCREASED to 30mg, but patient has NOT filled new Rx yet) albuterol HFA (PROAIR HFA) 90 mcg/actuation inhaler Inhale 2 Puffs as instructed every 4 hours as needed. esomeprazole (NEXIUM) 40 mg capsule Take 1 capsule by mouth once daily. fluticasone (FLOVENT HFA) 110 mcg/actuation inhaler Inhale 1 Puff as instructed twice daily. COMPOUNDED PRESCRIPTION CPAP with supplies at 9 CM H2O with humidification.Dx: G47.33 metoprolol tartrate, short acting, (LOPRESSOR) 25 mg tablet Take 0.5 tablets by mouth twice daily as needed. COMPOUNDED PRESCRIPTION CPAP with supplies at 9 CM H2O with humidification.Dx: G47.33 COMPOUNDED PRESCRIPTION CPAP with supplies at 9 CM H2O with humidification.Dx: G47.33 No current facility-administered medications on file prior to visit. 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 Social History Main Topics Smoking status: Former Smoker Packs/day: 0.20 Years: 10.00 Types: Cigarettes Quit date: 04/22/2012 Smokeless tobacco: Never Used Alcohol use: Yes Comment: special occasions Drug use: No Sexual activity: Yes Partners with: Male Other Topics Concern Service No Blood Transfusions No Caffeine Concern No Comment:uses caffeine Occupational Exposure No Hobby Hazards No Sleep Concern Yes Stress Concern Yes Weight Concern Yes Comment:has gained about 15 pounds Special Diet No Back Care No Exercise Yes Comment:4 times a week-aerobic and strength training Bike Helmet No Seat Belt Yes Self-Exams Yes Social History Narrative and lives with spouse and children Review of Symptoms REVIEW OF SYSTEMS See HPI EXAM: BP 130/78 (BP Site: Right Arm, BP Position: Sitting, BP Cuff Size: Large Adult) Pulse 78 Resp 16 Wt 103 kg (227 lb) LMP 01/26/2011 BMI 36.64 kg/m? General Appearance: Well appearing, alert, in no acute distress, well-hydrated, well nourished.. Neck: Supple, no adenopathy; thyroid symmetric, normal size, no bruits. Lungs: Lungs clear to auscultation. No wheezing, rhonchi, rales. Heart: RRR without murmur, gallop, or rubs. No ectopy. Though patient still felt like her heart was fluttering. Extremities: No deformities, edema, skin discoloration. Peripheral Pulses: Normal. Health Maintenance List DTAP,TDAP,TD(1 - Tdap) due on 11/10/1994 PAP EVERY 5 YEARS due on 11/10/2005 HPV EVERY 5 YEARS due on 11/10/2005 MAMMOGRAM due on 2015 INFLUENZA Completed Data reviewed Component Latest Ref Rng AND Units 10/30/2017 10/31/2017 WBC 3.70 - 11.00 k/uL 7.31 RBC 3.90 - 5.20 m/uL 5.05 Hemoglobin 11.5 - 15.5 g/dL 14.7 Hematocrit 36.0 - 46.0 % 43.0 MCV 80.0 - 100.0 fL 85.1 MCH 26.0 - 34.0 pG 29.1 MCHC 30.5 - 36.0 g/dL 34.2 RDW-CV 11.5 - 15.0 % 13.2 Platelet Count 150 - 400 k/uL 274 MPV 9.0 - 12.7 fL 10.2 Neut% % 56.9 Abs Neut (ANC) 1.45 - 7.50 k/uL 4.16 Lymph% % 31.9 Abs Lymph 1.00 - 4.00 k/uL 2.33 Nolan% % 6.4 Abs Nolan <0.87 k/uL 0.47 Eosin% % 4.5 Abs Eosin <0.46 k/uL 0.33 Baso% % 0.3 Abs Baso <0.11 k/uL <0.03 Protein, Total 6.3 - 8.0 g/dL 6.1 (L) Albumin 3.9 - 4.9 g/dL 3.9 Calcium 8.5 - 10.2 mg/dL 8.9 Bilirubin, Total 0.2 - 1.3 mg/dL 0.3 Alkaline Phosphatase 32 - 117 U/L 65 AST 13 - 35 U/L 15 Glucose 74 - 99 mg/dL 91 BUN 7 - 21 mg/dL 12 Creatinine 0.58 - 0.96 mg/dL 0.84 Sodium 136 - 144 mmol/L 143 Potassium 3.7 - 5.1 mmol/L 4.2 Chloride 97 - 105 mmol/L 105 CO2 22 - 30 mmol/L 26 Anion Gap 9 - 18 mmol/L 12 ALT 7 - 38 U/L 23 eGFR- >60 eGFR-All Other Races . >60 Cholesterol, Total <200 mg/dL 229 (H) Triglyceride <150 mg/dL 290 (H) HDL Cholesterol >39 mg/dL 34 (L) LDL Cholesterol <100 mg/dL 137 (H) Non HDL Cholesterol <130 mg/dL 195 (H) Fasting Time hrs Unknown VLDL Cholesterol <30 mg/dL 58 (H) TC:HDL Ratio <5.10 6.74 (H) LDL:HDL Ratio <2.54 4.03 (H) Magnesium 1.7 - 2.3 mg/dL 2.0 JAK High Sensitivity <12 ng/L <6 Chest x-ray 10/30/2017 was within normal limits. 10/31/2017 12:25 PM - C[facility], [facility] In Results ? Echocardiography Report: Stress Echo [facility] Date of service: 10/31/2017 8:29:04 AM Ordering physician: PRUDENCE BEAR (PA) Indication: Chest Pain ? Technologist: Galina Rey [facility] Interpreting physician: Lizzy Tan DO PATIENT: Name: MRS. JOÃO CASTILLO : 1975 Age: 41 years Gender: F Height: 167.64 cm BSA: 2.19 m? Weight: 102.97 kg BMI: 36.6 kg/m? ? Heart rate ? ? 73 bpm Blood pressure 122/78 mmHg Color Doppler was utilized to interrogate the cardiac valves assessed and spectral ?Doppler was utilized to determine the flow velocities and pressure gradients reported in this exam. ? MEASUREMENTS: ?Value ? Indexed ? ?Normal Left atrium diameter ? ? 4.0 cm (2D) Left atrial volume ? ? ? 45 ml (biplane A-L) 21 ml/m? ? Martha <= 34 LV ID (diastole) ? 4.6 cm (2D) LV ID (systole) ?3.1 cm (2D) IVS, leaflet tips ?0.8 cm (2D) Posterior wall thickness 1.1 cm (2D) Left ventricular mass ? ?150 g (2D) ?69 g/m? LV stroke volume ? 52 ml (2D biplane) LV end diastolic volume ?86 ml (2D biplane) ?39.2 ml/m? 29<=EDVi<62 LV end systolic volume ? 34 ml (2D biplane) ?15.4 ml/m? Ejection Fraction ?61 % (2D biplane) ?EF > 54 ? FINDINGS: ? LEFT VENTRICLE The left ventricle is normal in size. There is normal wall thickness. Left ventricular systolic function is normal. Normal left ventricular diastolic function. Mitral annular lateral E/e': 9.5. Mitral annular septal E/e': 10.4. Wall Motion: Rest: All scored segments are normal. Stress: All scored segments are normal. ? ? RIGHT VENTRICLE The right ventricle is normal in size. Right ventricular systolic function is normal. ? LEFT ATRIUM The left atrial cavity is normal in size. ? RIGHT ATRIUM The right atrial cavity is normal in size. ? MITRAL VALVE There is trivial mitral valve regurgitation. The pressure half time is 72 msec. The peak mitral E/A ratio is 1.01. The average mitral E/e' ratio is 9.9. The mitral flow deceleration time is 248 msec. ? TRICUSPID VALVE The tricuspid valve leaflets are structurally normal. ? AORTIC VALVE Tricuspid aortic valve. ? PULMONIC VALVE There is trivial pulmonic valve regurgitation. PERICARDIUM There is no pericardial effusion. ? STRESS ECHO Test was terminated due to completed protocol. Peak HR 164 bpm. (92 % MPHR) Peak BP 150 mmHg/86 mmHg. Patient experienced no symptoms during stress. Rest ECG normal sinus rhythm. Stress ECG normal sinus rhythm, normal ST segment response, premature ventricular contraction and premature atrial contraction. Stress complications: none. The left ventricular cavity size is decreased with stress. ? CONCLUSIONS: - Exam indication: Chest Pain - The exercise stress echo was negative for ischemia at 92 % of MPHR (10.4 METS). - The left ventricle is normal in size. Left ventricular systolic function is normal. EF = 61 ? 5% (2D biplane) Normal left ventricular diastolic function. - The right ventricle is normal in size. Right ventricular systolic function is normal. - Exam was compared with the prior echocardiographic exam performed on 06/08/11. ? A/P ASSESSMENT/PLAN: 1. Palpitations - ICD9: 785.1, ICD10: R00.2 (primary diagnosis) Check - TSH BLD - T4 FREE/FREE THYROX - HOLTER MONITOR 48 HOUR 2. Acquired hypothyroidism - ICD9: 244.9, ICD10: E03.9 - Instructed patient on importance of taking on an empty stomach either first thing in the morning or at bedtime. - continue current dose of Synthroid - TSH BLD - T4 FREE/FREE THYROX Do not feel this is related to vyvanse but suspect stress induced anxiety and did discuss this with patient. Will wait on TSH and halter. If ok discussed with patient considering try medication for a month such as buspar 15 mg twice a day or effexor xr 37.5 mg once a day. Gwyn Small MD Referring Provider: SELF [[id number]] Allergies As of Date: 11/08/2017 Noted Allergy Reaction KEFLEX (CEPHALEXIN) 04/29/2010 10 - Anaphylaxis PENICILLINS 04/29/2010 2 - Rash Comments: 10/30/17: patient reports skin test performed in early 2016 showed she is not allergic to penicillins anymore, but patient has not tried any pencillin since skin test results. TAPE (ADHESIVE TAPE (ROSINS)) 05/16/2012 2 - Rash ADDERALL (DEXTROAMPHETAMINE-AMPHE*07/30/2017 14 - Other: See Comments Comments: elevated blood pressure CELEXA (CITALOPRAM HYDROBROMIDE) 11/08/2017 14 - Other: See Comments Comments: Syncope and diaphoresis SEASONAL ALLERGIES 05/23/2012 14 - Other: See Comments Comments: Cats, Molds ZOLOFT (SERTRALINE HCL) 06/12/2014 14 - Other: See Comments Comments: Made her feel horrible Date Reviewed: 11/08/2017 Reviewed by: Gwyn Small - Fully Assessed Reason for Visit: Hospital Discharge [414] Cmt: Shen: Heart palpatations Primary Visit Diagnosis:Palpitations [R00.2] Other Visit Diagnosis:Acquired hypothyroidism [E03.9] Order(s):TSH BLD [SQTSH] Order #: [id number] FUTURE T4 FREE/FREE THYROX [SQFT4] Order #: [id number] FUTURE HOLTER MONITOR 48 HOUR [0861339] Order #: [id number] FUTURE Prescriptions as of 11/08/2017 Sig: OMEGA 9-MHJ-HYU-FISH OIL 1,00* Take 2 g by mouth once daily. MULTIVITAMIN-IRON 9 MG-FOLIC * Take 1 tablet by mouth once d* LISDEXAMFETAMINE 20 MG CAPSULE Take 20 mg by mouth once desean* ALBUTEROL SULFATE HFA 90 MCG/* Inhale 2 Puffs as instructed * ESOMEPRAZOLE MAGNESIUM 40 MG * Take 1 capsule by mouth once * FLUTICASONE 110 MCG/ACTUATION* Inhale 1 Puff as instructed t* COMPOUNDED PRESCRIPTION CPAP with supplies at 9 CM H2* METOPROLOL TARTRATE 25 MG TAB* Take 0.5 tablets by mouth twi* COMPOUNDED PRESCRIPTION CPAP with supplies at 9 CM H2* COMPOUNDED PRESCRIPTION CPAP with supplies at 9 CM H2* Problem List As Of Date 11/08/2017 Noted Resolved Allergic rhinitis [J30.9] INVALID FOR* Priority: B Mild persistent asthma [J45.30] INVALID FOR* Priority: A More... Dyslipidemia [E78.5] INVALID FOR* Priority: A Tic douloureux [G50.0] Priority: A More... Multiple lung nodules [R91.8] Priority: B More... More... Routine gynecological examination [Z01.419] INVALID FOR* Priority: D More... Incisional hernia without mention of obstructio*INVALID FOR* ADHD (attention deficit hyperactivity disorder)*INVALID FOR* Priority: A More... Hyperopia with astigmatism - Both Eyes [H52.00,*INVALID FOR* SOLANGE (obstructive sleep apnea) AHI 17.1 [G47.33] INVALID FOR* Priority: B More... Gastroesophageal reflux disease without esophag*INVALID FOR* Priority: A More... Acquired hypothyroidism [E03.9] INVALID FOR* Priority: A Current use of proton pump inhibitor [Z79.899] INVALID FOR* Palpitations [R00.2] INVALID FOR*10/31/2017 More... Disposition: Return if symptoms worsen or fail to improve. Follow-up and Disposition History Recorded Encounter Status:Closed by GWYN SMALL on 11/08/17 PROGRESS Observed: 11/08/2017 Status: COMPLETED Source: [place] 11:31 AM [facility] REPOSITORY HNO ID: [id number] Author: Gwyn Small Service: (none) Author Type: Physician Type: Progress Notes Filed: 11/08/2017 12:39 PM Note Text: Transitional Care Management Progress Note The patients TCM visit was performed within the 7 days of discharge. Patient's Date of discharge: 10/31/2017 Date of initial coordinator contact after discharge: Discharge diagnosis: palpitations Medication review completed Yes Elizabeth Fletcher Ma Provider Documentation: In follow-up of hospitalization, João Castillo is a 41 year old female with the chief complaint of hospital f/u I have reviewed the patient?s last hospital course including diagnostic testing performed during this hospitalization, their discharge medications, and my assessment and plan with the patient and any family members present at today?s visit. 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 Provider Action/FYI: Pt presented to [facility] ER on 10/30/17 and admitted for palpitations. Under went cardiac stress echo which was normal, no electrolyte derangements, TSH normal in July. Monitored on telemetry with 2 shots bursts of sinus tachycardia. Cardio consult obtained with recommendations of outpatient 30 day holter monitor to be arranged. Concerns that the palpitations may be caused by use of ADHD medication Vyvanse and albuterol inhaler. Pt was started on low dose Beta vidhya, Lopressor 25 mg half tablet BID. Needs to follow up with PCP to discuss a trial off of vyvanse. Discharged on 10/31/17. ? ? Initial contact with patient post discharge, spoke to left message for pt to call back. Needs appt for hospital follow up in 7-14 days of discharged which was 10/31/17. Additional message left on 11/05/17 for pt to call back to set up hospital follow up appt. Patient identified by name and . ? SUMMARY: -Pt discharged from [facility] on 10/31/17. -Admitted for: ? 1. Palpitations Do you have a hospital follow up appointment with your PCP? Appointment No. Assist patient with follow-up appointment within 1-14 calendar days from discharge date. If patient prefers not to schedule follow-up appointment at this time, notify PCP. ? MEDICATIONS: Many patients have questions or concerns about their medications once they are home. Were you prescribed any new medications? If yes, what are those medications? Metoprolol tartrate 25 mg, half tablet twice daily ? Were you told to hold any medications? No Were any of your medications discontinued? No ? Do you have any questions about getting or taking your medications? ? Your discharge instructions/After visit Summary (AVS) are important in guiding you through the recovery process. Is there anything I might help you understand? No ? Do you have all the necessary equipment and supplies at home? Yes ? Medical records from recent hospitalization: Placed for provider to review Chief Complaint Patient presents with: Hospital Discharge: Shen: Heart palpatations HPI João Castillo is a 41 year old female who presents here today for Hospital Discharge Follow up.. Since being released on 10/31/2017 she has not been taking her vyvanse and had been off of it 3-4 days prior to admission. With a 1/2 life of 12 hr would be out of her system by now. Patient still having the palpitations with the chest pain toady. Not short of breath but breathing feels heavy too her. Under a lot of stress with work and going back to school. Will notice similar symptoms with taking a test in school. Not drinking any caffeine including energy drinks. Patient not aware of any family Hx of heart arhythmias. Does not now Hx from dads side. TSH was not checked doing hospital stay from what I can find but CMP, Mg and CBC were all ok. Past medical history, appointments, medications, allergies reviewed. Previous Medical History PAST MEDICAL HISTORY Diagnosis Date - Asthma - Attention deficit hyperactivity disorder, predominantly inattentive type - Carpal tunnel syndrome - Environmental allergies - GERD (gastroesophageal reflux disease) on ppi - Hyperlipidemia - Hypothyroid - Multiple lung nodules followed by pulmonology - Tardive dyskinesia Ativan - Tic douloureux myoclonus jerk, more with stress, caffeine Previous Surgical History PAST SURGICAL HISTORY Procedure Laterality Date - HYSTERECTOMY HX May 2012 lap:fibroids, no cancer, uterus and cervix only - KNEE RIGHT OP SURGERY arthroscopy - REMOVAL GALLBLADDER lap constantino - REPAIR INCISIONAL HERNIA 03/30/2014 - RHINOPLASTY 2003 deviated septum - TONSILLECTOMY HX Family History FAMILY HISTORY Problem Relation Age of Onset - Hypertension Mother - colorectal cancer [Other] [OTHER] Other Aunt - Hypertension Maternal Grandmother - Stroke Maternal Grandmother - Hypertension Maternal Grandfather - Diabetes Maternal Grandfather - Glaucoma Maternal Grandfather - Breast Cancer Maternal Aunt 6 sisters have had breast cancer - Breast Cancer Mother - Diabetes Maternal Grandmother Patient Allergies ALLERGIES Allergen Reactions - Keflex [Cephalexin] Anaphylaxis - Penicillins Rash 10/30/17: patient reports skin test performed in early 2016 showed she is not allergic to penicillins anymore, but patient has not tried any pencillin since skin test results. - Tape [Adhesive Tape* Rash - Adderall [Dextroamp* Other: See Comments elevated blood pressure - Seasonal Allergies Other: See Comments Cats, Molds - Zoloft [Sertraline * Other: See Comments Made her feel horrible Current Medications Current Outpatient Prescriptions on File Prior to Visit: Lhewc-4-JPS-EPA-Fish Oil (FISH OIL) 1,000 mg (120 mg-180 mg) cap Take 2 g by mouth once daily. therapeutic multivitamin w/ iron (THERAGRAN-M) 9 mg iron-400 mcg tablet Take 1 tablet by mouth once daily. lisdexamfetamine (VYVANSE) 20 mg capsule Take 20 mg by mouth once daily. .(Dose INCREASED to 30mg, but patient has NOT filled new Rx yet) albuterol HFA (PROAIR HFA) 90 mcg/actuation inhaler Inhale 2 Puffs as instructed every 4 hours as needed. esomeprazole (NEXIUM) 40 mg capsule Take 1 capsule by mouth once daily. fluticasone (FLOVENT HFA) 110 mcg/actuation inhaler Inhale 1 Puff as instructed twice daily. COMPOUNDED PRESCRIPTION CPAP with supplies at 9 CM H2O with humidification.Dx: G47.33 metoprolol tartrate, short acting, (LOPRESSOR) 25 mg tablet Take 0.5 tablets by mouth twice daily as needed. COMPOUNDED PRESCRIPTION CPAP with supplies at 9 CM H2O with humidification.Dx: G47.33 COMPOUNDED PRESCRIPTION CPAP with supplies at 9 CM H2O with humidification.Dx: G47.33 No current facility-administered medications on file prior to visit. 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 Social History Main Topics Smoking status: Former Smoker Packs/day: 0.20 Years: 10.00 Types: Cigarettes Quit date: 04/22/2012 Smokeless tobacco: Never Used Alcohol use: Yes Comment: special occasions Drug use: No Sexual activity: Yes Partners with: Male Other Topics Concern Service No Blood Transfusions No Caffeine Concern No Comment:uses caffeine Occupational Exposure No Hobby Hazards No Sleep Concern Yes Stress Concern Yes Weight Concern Yes Comment:has gained about 15 pounds Special Diet No Back Care No Exercise Yes Comment:4 times a week-aerobic and strength training Bike Helmet No Seat Belt Yes Self-Exams Yes Social History Narrative and lives with spouse and children Review of Symptoms REVIEW OF SYSTEMS See HPI EXAM: BP 130/78 (BP Site: Right Arm, BP Position: Sitting, BP Cuff Size: Large Adult) Pulse 78 Resp 16 Wt 103 kg (227 lb) LMP 01/26/2011 BMI 36.64 kg/m? General Appearance: Well appearing, alert, in no acute distress, well-hydrated, well nourished.. Neck: Supple, no adenopathy; thyroid symmetric, normal size, no bruits. Lungs: Lungs clear to auscultation. No wheezing, rhonchi, rales. Heart: RRR without murmur, gallop, or rubs. No ectopy. Though patient still felt like her heart was fluttering. Extremities: No deformities, edema, skin discoloration. Peripheral Pulses: Normal. Health Maintenance List DTAP,TDAP,TD(1 - Tdap) due on 11/10/1994 PAP EVERY 5 YEARS due on 11/10/2005 HPV EVERY 5 YEARS due on 11/10/2005 MAMMOGRAM due on 2015 INFLUENZA Completed Data reviewed Component Latest Ref Rng AND Units 10/30/2017 10/31/2017 WBC 3.70 - 11.00 k/uL 7.31 RBC 3.90 - 5.20 m/uL 5.05 Hemoglobin 11.5 - 15.5 g/dL 14.7 Hematocrit 36.0 - 46.0 % 43.0 MCV 80.0 - 100.0 fL 85.1 MCH 26.0 - 34.0 pG 29.1 MCHC 30.5 - 36.0 g/dL 34.2 RDW-CV 11.5 - 15.0 % 13.2 Platelet Count 150 - 400 k/uL 274 MPV 9.0 - 12.7 fL 10.2 Neut% % 56.9 Abs Neut (ANC) 1.45 - 7.50 k/uL 4.16 Lymph% % 31.9 Abs Lymph 1.00 - 4.00 k/uL 2.33 Nolan% % 6.4 Abs Nolan <0.87 k/uL 0.47 Eosin% % 4.5 Abs Eosin <0.46 k/uL 0.33 Baso% % 0.3 Abs Baso <0.11 k/uL <0.03 Protein, Total 6.3 - 8.0 g/dL 6.1 (L) Albumin 3.9 - 4.9 g/dL 3.9 Calcium 8.5 - 10.2 mg/dL 8.9 Bilirubin, Total 0.2 - 1.3 mg/dL 0.3 Alkaline Phosphatase 32 - 117 U/L 65 AST 13 - 35 U/L 15 Glucose 74 - 99 mg/dL 91 BUN 7 - 21 mg/dL 12 Creatinine 0.58 - 0.96 mg/dL 0.84 Sodium 136 - 144 mmol/L 143 Potassium 3.7 - 5.1 mmol/L 4.2 Chloride 97 - 105 mmol/L 105 CO2 22 - 30 mmol/L 26 Anion Gap 9 - 18 mmol/L 12 ALT 7 - 38 U/L 23 eGFR- >60 eGFR-All Other Races . >60 Cholesterol, Total <200 mg/dL 229 (H) Triglyceride <150 mg/dL 290 (H) HDL Cholesterol >39 mg/dL 34 (L) LDL Cholesterol <100 mg/dL 137 (H) Non HDL Cholesterol <130 mg/dL 195 (H) Fasting Time hrs Unknown VLDL Cholesterol <30 mg/dL 58 (H) TC:HDL Ratio <5.10 6.74 (H) LDL:HDL Ratio <2.54 4.03 (H) Magnesium 1.7 - 2.3 mg/dL 2.0 JAK High Sensitivity <12 ng/L <6 Chest x-ray 10/30/2017 was within normal limits. 10/31/2017 12:25 PM - [facility], [facility] In Results ? Echocardiography Report: Stress Echo [facility] Date of service: 10/31/2017 8:29:04 AM Ordering physician: PRUDENCE BEAR (PA) Indication: Chest Pain ? Technologist: Galina Rey [facility] Interpreting physician: Lizzy Tan DO PATIENT: Name: MRS. JOÃO CASTILLO : 1975 Age: 41 years Gender: F Height: 167.64 cm BSA: 2.19 m? Weight: 102.97 kg BMI: 36.6 kg/m? ? Heart rate ? ? 73 bpm Blood pressure 122/78 mmHg Color Doppler was utilized to interrogate the cardiac valves assessed and spectral ?Doppler was utilized to determine the flow velocities and pressure gradients reported in this exam. ? MEASUREMENTS: ?Value ? Indexed ? ?Normal Left atrium diameter ? ? 4.0 cm (2D) Left atrial volume ? ? ? 45 ml (biplane A-L) 21 ml/m? ? Martha <= 34 LV ID (diastole) ? 4.6 cm (2D) LV ID (systole) ?3.1 cm (2D) IVS, leaflet tips ?0.8 cm (2D) Posterior wall thickness 1.1 cm (2D) Left ventricular mass ? ?150 g (2D) ?69 g/m? LV stroke volume ? 52 ml (2D biplane) LV end diastolic volume ?86 ml (2D biplane) ?39.2 ml/m? 29<=EDVi<62 LV end systolic volume ? 34 ml (2D biplane) ?15.4 ml/m? Ejection Fraction ?61 % (2D biplane) ?EF > 54 ? FINDINGS: ? LEFT VENTRICLE The left ventricle is normal in size. There is normal wall thickness. Left ventricular systolic function is normal. Normal left ventricular diastolic function. Mitral annular lateral E/e': 9.5. Mitral annular septal E/e': 10.4. Wall Motion: Rest: All scored segments are normal. Stress: All scored segments are normal. ? ? RIGHT VENTRICLE The right ventricle is normal in size. Right ventricular systolic function is normal. ? LEFT ATRIUM The left atrial cavity is normal in size. ? RIGHT ATRIUM The right atrial cavity is normal in size. ? MITRAL VALVE There is trivial mitral valve regurgitation. The pressure half time is 72 msec. The peak mitral E/A ratio is 1.01. The average mitral E/e' ratio is 9.9. The mitral flow deceleration time is 248 msec. ? TRICUSPID VALVE The tricuspid valve leaflets are structurally normal. ? AORTIC VALVE Tricuspid aortic valve. ? PULMONIC VALVE There is trivial pulmonic valve regurgitation. PERICARDIUM There is no pericardial effusion. ? STRESS ECHO Test was terminated due to completed protocol. Peak HR 164 bpm. (92 % MPHR) Peak BP 150 mmHg/86 mmHg. Patient experienced no symptoms during stress. Rest ECG normal sinus rhythm. Stress ECG normal sinus rhythm, normal ST segment response, premature ventricular contraction and premature atrial contraction. Stress complications: none. The left ventricular cavity size is decreased with stress. ? CONCLUSIONS: - Exam indication: Chest Pain - The exercise stress echo was negative for ischemia at 92 % of MPHR (10.4 METS). - The left ventricle is normal in size. Left ventricular systolic function is normal. EF = 61 ? 5% (2D biplane) Normal left ventricular diastolic function. - The right ventricle is normal in size. Right ventricular systolic function is normal. - Exam was compared with the prior echocardiographic exam performed on 06/08/11. ? A/P ASSESSMENT/PLAN: 1. Palpitations - ICD9: 785.1, ICD10: R00.2 (primary diagnosis) Check - TSH BLD - T4 FREE/FREE THYROX - HOLTER MONITOR 48 HOUR 2. Acquired hypothyroidism - ICD9: 244.9, ICD10: E03.9 - Instructed patient on importance of taking on an empty stomach either first thing in the morning or at bedtime. - continue current dose of Synthroid - TSH BLD - T4 FREE/FREE THYROX Do not feel this is related to vyvanse but suspect stress induced anxiety and did discuss this with patient. Will wait on TSH and halter. If ok discussed with patient considering try medication for a month such as buspar 15 mg twice a day or effexor xr 37.5 mg once a day. 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 Under went cardiac stress echo which was normal, no electrolyte derangements, TSH normal in July. Monitored on telemetry with 2 shots bursts of sinus tachycardia. Cardio consult obtained with recommendations of outpatient 30 day holter monitor to be arranged. Concerns that the palpitations may be caused by use of ADHD medication Vyvanse and albuterol inhaler. Pt was started on low dose Beta vidhya, Lopressor 25 mg half tablet BID. Needs to follow up with PCP to discuss a trial off of vyvanse. Discharged on 10/31/17. Initial contact with patient post discharge, spoke to left message for pt to call back. Needs appt for hospital follow up in 7-14 days of discharged which was 10/31/17. Additional message left on 11/05/17 for pt to call back to set up hospital follow up appt. Patient identified by name and . SUMMARY: -Pt discharged from [facility] on 10/31/17. -Admitted for: 1. Palpitations Do you have a hospital follow up appointment with your PCP? Appointment on Dr. Burnham with 11/08/2017. No. Assist patient with follow-up appointment within 1-14 calendar days from discharge date. If patient prefers not to schedule follow-up appointment at this time, notify PCP. MEDICATIONS: Many patients have questions or concerns about their medications once they are home. Were you prescribed any new medications? If yes, what are those medications? Metoprolol tartrate 25 mg, half tablet twice daily Were you told to hold any medications? No Were any of your medications discontinued? No Do you have any questions about getting or taking your medications? No Your discharge instructions/After visit Summary (AVS) are important in guiding you through the recovery process. Is there anything I might help you understand? No Do you have all the necessary equipment and supplies at home? Yes Medical records from recent hospitalization: Placed for provider to review CNDS Observed: 10/31/2017 Status: COMPLETED Source: [place] 2:49 PM [facility] HNO ID: [id number] Author: Edward Choi Service: Hospital Medicine Author Type: Physician Type: Discharge Summaries Filed: 10/31/2017 3:26 PM Note Text: DISCHARGE SUMMARY PATIENT NAME: João Castillo ADMISSION DATE: 10/30/2017 DISCHARGE DATE: 10/31/2017 ATTENDING PHYSICIAN: Edward Choi REASON FOR HOSPITALIZATION: Palpitations DIAGNOSIS: Principal Problem (Resolved): Palpitations Active Problems: * No active hospital problems. * HOSPITAL COURSE: Presented with palpitations. Underwent cardiac stress echo which was normal, no electrolyte derangements, TSH normal back in July. Monitored on telemetry with 2 short bursts of sinus tachycardia. Cardiology consultation obtained and recommends outpatient 30 day Holter monitor to be arranged outpatient. Palpitations are likely precipitated by amphetamine use for ADHD (Vyvanse) and beta agonist (albuterol inhaler). Gave her low dose beta vidhya to take PRN if palpitations are persistent. May need trial off of the Vyvanse. Advised patient to follow up with PCP in 1 week. OPERATIONS DURING HOSPITALIZATION: None PROCEDURES DURING HOSPITALIZATION: Stress Test LABS AND PROCEDURES PENDING AT DISCHARGE: No pending results. CONSULTING TEAMS DURING HOSPITALIZATION: Cardiology: Dr. Tan PATIENT CONDITION AT DISCHARGE: Stable DISCHARGE DISPOSITION: Home/Self Care Discharge Physical Exam: VITAL SIGNS: BP 125/69 Pulse 84 Temp 36.6 ?C (97.9 ?F) (Oral) Resp 18 Ht 167.6 cm (5' 6) Wt 103 kg (227 lb 1.2 oz) LMP 01/26/2011 SpO2 98% BMI 36.65 kg/m? GENERAL: Alert, no distress, cooperative SKIN: Skin color, texture, turgor normal. No rashes or lesions. HEAD/SINUSES: No significant findings. AT/NC EYES: PERRLA, EOMI OROPHARYNX: Lips, mucosa, and tongue normal. Teeth and gums normal. Oropharynx normal. LUNGS: Lungs clear to auscultation, Good diaphragmatic excursion CARDIAC: Normal S1 and S2; RRR no rubs, murmurs, or gallops ABDOMEN: Abdomen soft, non-tender, BS normal EXTREMITIES: Extremities normal, no deformities, edema, clubbing or skin discoloration. Good capillary refill DISCHARGE MEDICATION: Current Discharge Medication List START taking these medications metoprolol tartrate (short acting) (LOPRESSOR) 12.5 mg Take 12.5 mg by mouth twice daily as needed. Qty: 30 tablet Refills: 0 CONTINUE these medications which have NOT CHANGED Ucodc-1-GCC-EPA-Fish Oil 2 g Take 2 g by mouth once daily. therapeutic multivitamin w/ iron (THERAGRAN-M) 1 tablet Take 1 tablet by mouth once daily. lisdexamfetamine (VYVANSE) 20 mg Take 20 mg by mouth once daily. . (Dose INCREASED to 30mg, but patient has NOT filled new Rx yet) albuterol HFA (PROVENTIL HFA, VENTOLIN HFA) 2 Puffs Inhale 2 Puffs as instructed every 4 hours as needed. Qty: 1 Inhaler Refills: 2 Associated Diagnoses:Mild persistent asthma without complication esomeprazole (NexIUM) 40 mg Take 40 mg by mouth once daily. Qty: 90 capsule Refills: 1 Associated Diagnoses:Gastroesophageal reflux disease without esophagitis fluticasone (FLOVENT) 1 Puff Inhale 1 Puff as instructed twice daily. Qty: 1 Inhaler Refills: 5 Associated Diagnoses:Mild persistent asthma without complication !! COMPOUNDED PRESCRIPTION CPAP with supplies at 9 CM H2O with humidification. Dx: G47.33 Qty: 1 Device Refills: 0 !! COMPOUNDED PRESCRIPTION CPAP with supplies at 9 CM H2O with humidification. Dx: G47.33 Qty: 1 Device Refills: 0 !! COMPOUNDED PRESCRIPTION CPAP with supplies at 9 CM H2O with humidification. Dx: G47.33 Qty: 1 Device Refills: 0 !! - Potential duplicate medications found. Please discuss with provider. FUTURE APPOINTMENTS: Follow Up with PCP: Gwyn Small MD TIME OF CARE Discharge Management: I personally spent greater than 30 minutes involved in the discharge management of this patient. SIGNATURE: Hanny Mdasen APRN.CAN CAPPER PATIENT NAME: João Castillo DATE: October 31, 2017 TIME: 2:50 PM PAGER/CONTACT #: [id number] Pt seen and examined Case discussed with mid level provider Dia findings confirmed and plan as outlined above Heart rrr no mgr Lung cta b 1. Palpitations/cp: stress echo low risk, intermittent sinus tachy seen on tele. Pt may need to switch vyvanse. Holter monitor as outpt Prn beta vidhya if symptomatic CONSULT Observed: 10/31/2017 Status: COMPLETED Source: [place] 12:29 PM CLINIC OTHER CAMPUS REPOSITORY O ID: [id number] Author: Lizzy Tan Service: Clinical Cardiology Author Type: Physician Type: Consults Filed: 10/31/2017 1:30 PM Note Text: CONSULT: CARDIOLOGY SERVICE SERVICE DATE: 10/31/2017 SERVICE TIME: 1230 CONSULTING PHYSICIAN: Lizzy Tan DO PCP: Gwyn Small MD ATTENDING: Edward Choi REASON FOR CONSULT: palpitations Subjective CHIEF COMPLAINT: Jaw pain [R68.84] HISTORY OF PRESENT ILLNESS: Ms. Castillo is a 41 year old female who presents for palpitations. She noted her iwatch said her heart rate was 170 and she felt heart going up and down. She takes albuterol and vyvance but has not been on them for a few days. She also uses CPAP but not consistently. She has h/o thyroid disease but last TSH . PAST MEDICAL HISTORY Diagnosis Date - Asthma - Attention deficit hyperactivity disorder, predominantly inattentive type - Carpal tunnel syndrome - Environmental allergies - GERD (gastroesophageal reflux disease) on ppi - Hyperlipidemia - Hypothyroid - Multiple lung nodules followed by pulmonology - Tardive dyskinesia Ativan - Tic douloureux myoclonus jerk, more with stress, caffeine PAST SURGICAL HISTORY Procedure Laterality Date - HYSTERECTOMY HX May 2012 lap:fibroids, no cancer, uterus and cervix only - KNEE RIGHT OP SURGERY arthroscopy - REMOVAL GALLBLADDER lap constantino - REPAIR INCISIONAL HERNIA 03/30/2014 - RHINOPLASTY 2004 deviated septum - TONSILLECTOMY HX FAMILY HISTORY Problem Relation Age of Onset - Hypertension Mother - colorectal cancer [Other] [OTHER] Other Aunt - Hypertension Maternal Grandmother - Stroke Maternal Grandmother - Hypertension Maternal Grandfather - Diabetes Maternal Grandfather - Glaucoma Maternal Grandfather - Breast Cancer Maternal Aunt 6 sisters have had breast cancer - Breast Cancer Mother - Diabetes Maternal Grandmother Social History Substance Use Topics - Smoking status: Former Smoker Packs/day: 0.20 Years: 10.00 Types: Cigarettes Quit date: 04/22/2012 - Smokeless tobacco: Never Used - Alcohol use Yes Comment: special occasions Prior to Admission Medications Prescriptions Last Dose Informant Patient Reported? Taking? COMPOUNDED PRESCRIPTION Unknown at Unknown time No Yes Sig: CPAP with supplies at 9 CM H2O with humidification. Dx: G47.33 COMPOUNDED PRESCRIPTION Unknown at Unknown time No Yes Sig: CPAP with supplies at 9 CM H2O with humidification. Dx: G47.33 COMPOUNDED PRESCRIPTION Unknown at Unknown time No Yes Sig: CPAP with supplies at 9 CM H2O with humidification. Dx: G47.33 Fjvth-0-UDW-EPA-Fish Oil (FISH OIL) 1,000 mg (120 mg-180 mg) cap Unknown at Unknown time Yes Yes Sig: Take 2 g by mouth once daily. albuterol HFA (PROAIR HFA) 90 mcg/actuation inhaler Past Week at Unknown time No Yes Sig: Inhale 2 Puffs as instructed every 4 hours as needed. esomeprazole (NEXIUM) 40 mg capsule Unknown at Unknown time No Yes Sig: Take 1 capsule by mouth once daily. fluticasone (FLOVENT HFA) 110 mcg/actuation inhaler Unknown at Unknown time No Yes Sig: Inhale 1 Puff as instructed twice daily. lisdexamfetamine (VYVANSE) 20 mg capsule Unknown at Unknown time Yes Yes Sig: Take 20 mg by mouth once daily. . (Dose INCREASED to 30mg, but patient has NOT filled new Rx yet) lisdexamfetamine (VYVANSE) 30 mg capsule No No Sig: Take 1 capsule by mouth once daily for 30 days. lisdexamfetamine (VYVANSE) 30 mg capsule Unknown at Unknown time Yes Yes Sig: Take 30 mg by mouth once daily. . (PATIENT HAS NOT STARTED; NEW RX) therapeutic multivitamin w/ iron (THERAGRAN-M) 9 mg iron-400 mcg tablet Unknown at Unknown time Yes Yes Sig: Take 1 tablet by mouth once daily. Facility-Administered Medications: None Current hospital medications: lisdexamfetamine 30 mg capsule (VYVANSE) 30 mg ORAL DAILY albuterol 2.5 mg /3 mL (0.083 %) 2.5 mg (PROVENTIL) 3 mL INHALATION q [address] 40 mg tab(s) (PROTONIX) 40 mg ORAL DAILY 0.9% NaCl 3-5 mL 3-5 mL INTRAVENOUS q 12 H acetaminophen 650 mg tab(s) (TYLENOL) 650 mg ORAL q 6 H PRN morphine 1-2 mg injection 1-2 mg INTRAVENOUS q 4 H PRN ALLERGIES Allergen Reactions - Keflex [Cephalexin] Anaphylaxis - Adderall [Dextroamp* Other: See Comments elevated blood pressure - Seasonal Allergies Other: See Comments Cats, Molds - Tape [Adhesive Tape* Rash - Zoloft [Sertraline * Other: See Comments Made her feel horrible - Penicillins Rash 10/30/17: patient reports skin test performed in early 2016 showed she is not allergic to penicillins anymore, but patient has not tried any pencillin since skin test results. CARDIAC STATUS: Chest Pain: Denies Dyspnea: Negative Ankle Edema: Negative Arrhythmia: Negative, Patient denies palpitations, lightheadedness, dizziness, syncope or near syncope. Functional Capacity: Average Activity includes Moderate activity REVIEW OF SYSTEMS: The following systems were reviewed with the patient, and are unremarkable other than as described below. SYSTEMIC: No fever, chills, or change in weight or appetite HEENT: No recent change in vision or hearing. CARDIOVASCULAR: No murmur, gallop. Denies chest pain or palpitations. GI: No recent nausea, vomiting or diarrhea. : No recent hematuria or dysuria. SKIN: No recent itching or eruption. PSYCH: No recent active anxiety or depression. HEMATOLOGY/ONCOLOGY: No recent diagnosis of bleeding or cancer. ENDOCRINE: No recent polyuria or heat intolerance. NEURO: No recent TIA, stroke or seizures. RHEUMATOLOGY: No recent active connective tissue disease. Objective PHYSICAL EXAM: Pleasant, comfortable, not in acute distress. Awake, alert, oriented times 3. Moves all extremities. SKIN: No rash or lumps. HEENT: Normocephalic, face symmetrical. NECK: Supple, no JVD, no carotid bruit, no thyromegaly. LUNGS: Clear to auscultation bilaterally. CARDIAC: PMI present, RRR, S1 and S2, no S3 or S4, no additional heart sounds or murmurs. ABDOMEN: Soft, nontender, bowel sounds present. EXTREMITIES: No edema. PULSES: Peripheral pulses present. Body mass index is 36.65 kg/m?. O2 Therapy: Room Air No Data Recorded Patient Vitals for the past 48 hrs: BP Temp Temp src Pulse Resp SpO2 Height Weight 10/31/17 0940 99/68 36.7 ?C (98.1 ?F) Oral 93 16 95 % - - 10/31/17 0332 141/77 36.7 ?C (98.1 ?F) Oral 69 16 98 % - - 10/30/17 2343 123/64 36.9 ?C (98.4 ?F) Oral 71 16 97 % - - 10/30/17 2024 121/60 36.8 ?C (98.2 ?F) Oral 81 16 98 % - - 10/30/17 1710 129/78 37 ?C (98.6 ?F) Oral 86 16 98 % - - 10/30/17 1700 - - - - - - 167.6 cm (5' 6) 103 kg (227 lb 1.2 oz) 10/30/17 1643 130/78 36.8 ?C (98.2 ?F) Oral 90 16 98 % - - 10/30/17 1541 156/75 36.8 ?C (98.3 ?F) Oral 86 14 98 % - - 10/30/17 1442 170/79 36.6 ?C (97.9 ?F) Oral (!) 101 16 99 % - 104.3 kg (230 lb) DATA: Diagnostic tests reviewed for today's visit: Most recent labs and imaging results. Most recent labs Most recent imaging Most recent EKG Past 72 Hour Labs: Recent Labs 10/31/17 0431 10/30/17 1449 CK -- -- 85 TROPT <0.010 < > -- WBC 8.82 -- 7.31 RBC 4.93 -- 5.05 HB 14.1 -- 14.7 HCT 42.3 -- 43.0 MCV 85.8 -- 85.1 MCH 28.6 -- 29.1 MCHC 33.3 -- 34.2 RDWCV 13.3 -- 13.2 PLT 250 -- 274 MPV 10.1 -- 10.2 NEUTP -- -- 56.9 LYMPHP -- -- 31.9 MONOP -- -- 6.4 EODINP -- -- 4.5 BASOP -- -- 0.3 ABSNEUT -- -- 4.16 ABSMONO -- -- 0.47 ABSEOSIN -- -- 0.33 ABSBASO -- -- <0.03 GLUC 91 -- 118* BUN 12 -- 12 CREAT 0.84 -- 0.92 NA 143 -- 141 K 4.2 -- 3.8 CHLOR 105 -- 102 CO2 26 -- 28 TPROT 6.1* -- 6.9 ALB 3.9 -- 4.0 CA 8.9 -- 9.5 ALKPHOS 65 -- 76 TBILI 0.3 -- 0.3 AST 15 -- 17 ALT 23 -- 26 PTSEC -- -- 10.0 APTT -- -- 26.6 INR -- -- 1.0 MG -- -- 2.0 < > = values in this interval not displayed. Last Lab Drawn: TSH 1.430 07/30/2017 Triglyceride 290 10/31/2017 HDL Cholesterol 34 10/31/2017 LDL Chol, Batson 137 10/31/2017 Cholesterol, Total 229 10/31/2017 Prior Cardiac Workup: STRESS ECHO TODAY 10/31/17 STRESS ECHO Test was terminated due to completed protocol. Peak HR 164 bpm. (92 % MPHR) Peak BP 150 mmHg/86 mmHg. Patient experienced no symptoms during stress. Rest ECG normal sinus rhythm. Stress ECG normal sinus rhythm, normal ST segment response, premature ventricular contraction and premature atrial contraction. Stress complications: none. The left ventricular cavity size is decreased with stress. ? CONCLUSIONS: - Exam indication: Chest Pain - The exercise stress echo was negative for ischemia at 92 % of MPHR (10.4 METS). - The left ventricle is normal in size. Left ventricular systolic function is normal. EF = 61 ? 5% (2D biplane) Normal left ventricular diastolic function. - The right ventricle is normal in size. Right ventricular systolic function is normal. - Exam was compared with the prior echocardiographic exam performed on 06/08/11. ? Impression/Recommendations Medications 1. Palpitations No significant dysrhythmia on telemetry Probable sinus tachycardia and/or atrial/injury or ectopy Contributing factors beta agonists for pulmonary treatment and amphetamine for ADHD. We will place 14 a 30 day monitor on as an outpatient 2. Apical chest pain Normal stress echocardiogram today 3. Hypothyroidism by history 4. GERD 5. Hyperlipidemia 6. Asthma Conclusion and recommendations: She has normal stress echocardiogram and no evidence of structural cardiac disease. She may have intermittent sinus tachycardia and/or atrial ventricular ectopy versus SVT. Would discharge her and plan for a 30 day her 14 day monitor as an outpatient. Thank you for allowing me the privilege of participating in the care of your patient. Please do not hesitate to contact me if there are any questions. Lizzy Tan DO, FACC, FCCP, FACOI SIGNATURE: Lizzy Tan DO PATIENT NAME: João Castillo DATE: October 31, 2017 TIME: 12:30 PM PAGER/CONTACT #: NURSING PROG Observed: 10/31/2017 Status: COMPLETED Source: [place] 8:12 AM [facility] REPOSITORY HNO ID: [id number] Author: Magalys Zimmerman (Rn) ANGELLA Vann Service: Nursing Author Type: Registered Nurse Type: Nursing Progress Note Filed: 10/31/2017 8:13 AM Note Text: Nursing Progress Note Patient Name: João Castillo Patient Location: [id number] Daily Note: 0700 assumed care of pt at this time. Pt resting in bed, states no chest pain or SOB. No other needs stated at this time. Call daigle within reach, bed in lowest position. 0810 pt PRESTON to cardiology for stress test. This note was completed by: Magalys Vann RN EKG Observed: 10/31/2017 Status: F Source: [place] 4:41 AM [facility] REPOSITORY NAME : JOÃO CASTILLO PID : [id number] : 1975 Gender : Female Race : ORD : [id number] Procedure Date : Oct 31 2017 04:41:58 Edit Date : Oct 31 2017 09:41:54 Diagnosis:NORMAL SINUS RHYTHM NORMAL ECG WHEN COMPARED WITH ECG OF 30-OCT-2017 22:47, NO SIGNIFICANT CHANGE WAS FOUND Confirmed by MD Johann, Qarab ([id number]) on 10/31/2017 9:41:46 AM Ventricular Rate : 67 BPM Atrial Rate : 67 BPM P-R Interval : 150 ms QRS Duration : 76 ms Q-T Interval : 452 ms QTC Calculation(Bezet) : 477 ms P [place] : -10 degrees R [place] : 17 degrees T [place] : 5 degrees Test Reason : Arrhythmia Location : 16 : 4S 403-1 Overread By : MD Wills Qarab Edited By : MD Wills Qarab Referred By : TONY Acquired by : GENNA, NURSING PROG Observed: 10/31/2017 Status: COMPLETED Source: [place] 4:36 AM [facility] OTHER [place] REPOSITORY HNO ID: [id number] Author: Obdulia (Rn) ANGELLA Raphael Service: (none) Author Type: Registered Nurse Type: Nursing Progress Note Filed: 10/31/2017 4:45 AM Note Text: Nursing Progress Note Patient Name: João Castillo Patient Location: [place] [id number] Daily Note: 1950 assessment complete pt denies any CP, SOB or nausea. Tele monitor on , nsr HR in 80's. No needs voiced call light in reach. 2200 pt resting comfortably denies any CP or SOB, tele nsr, no needs voiced. 0000 pt resting denies nay CP or SOB, no distress noted, tele nsr HR in 70', pt NPO for lipid panel in morning, call light in reach. 0200 pt sleeping appears comfortable resp even and unlabored, tele nsr HR in 60's. 0340 Dr. Dick in to see pt. This note was completed by: Obdulia Raphael, ANGELLA CBC Collected: 10/31/2017 Status: F Source: [place] 4:31 AM CLINIC OTHER CAMPUS REPOSITORY TYPE CODE TESTS RESULT OUT OF REFERENCE UNITS RANGE LAB WBC 3.70-11.00 k/uL WBC 8.82 LAB RBC 3.90-5.20 m/uL RBC 4.93 LAB HGB 11.5-15.5 g/dL Hemoglobin 14.1 LAB HCT 36.0-46.0 % Hematocrit 42.3 LAB MCV 80.0-100.0 fL MCV 85.8 LAB MCH 26.0-34.0 pG MCH 28.6 LAB MCHC 30.5-36.0 g/dL MCHC 33.3 LAB RDWCV 11.5-15.0 % RDW-CV 13.3 LAB PLTCT 150-400 k/uL Platelet Count 250 LAB MPV 9.0-12.7 fL MPV 10.1 Performed By: #### CBC, CMP #### [facility] [address] [phone] #### LIPB #### [facility] [address] [place] [address] COMP METABOLIC PANEL Collected: 10/31/2017 Status: F Source: [place] 4:31 AM CLINIC OTHER CAMPUS REPOSITORY TYPE CODE TESTS RESULT OUT OF REFERENCE UNITS RANGE LAB TP 6.3-8.0 g/dL Low Protein, Total 6.1 LAB ALB 3.9-4.9 g/dL Albumin 3.9 LAB CA 8.5-10.2 mg/dL Calcium, Total 8.9 LAB TBIL 0.2-1.3 mg/dL Bilirubin, Total 0.3 LAB ALKP 32-117 U/L Alkaline Phosphatase 65 LAB AST 13-35 U/L AST 15 LAB GLU 74-99 mg/dL Glucose 91 Result Comment: The [place] Diabetes Association (ADA) provides guidance for cutoff values for fasting glucose and random glucose. The ADA defines fasting as no caloric intake for at least 8 hours. Fas ting plasma glucose results between 100 to 125 mg/dL indicate increased risk for diabetes (prediabetes). Fasting plasma glucose results greater than or equal to 126 mg/dL meet the criteria for diagnosis of diabetes. In the absence of unequivocal hyperglycemia, results should be confirmed by repeat testing. In a patient with classic symptoms of hyperglycemia or hyperglycemic crisis, random plasma glucose results greater than or equal to 200 mg/dL meet the criteria for diagnosis of diabetes. Reference: Standards of Medical Care in Diabetes 2016, [place] [employer] Association. Diabetes Care. 2016.39(Suppl 1). LAB BUN 7-21 mg/dL BUN 12 LAB CRET 0.58-0.96 mg/dL Creatinine 0.84 LAB NA 136-144 mmol/L Sodium 143 LAB K 3.7-5.1 mmol/L Potassium 4.2 LAB CL 97-105 mmol/L Chloride 105 LAB CO2 22-30 mmol/L CO2 26 LAB AGAP 9-18 mmol/L Anion Gap 12 LAB ALT 7-38 U/L ALT 23 LAB GFRAA eGFR- Amer. >60 LAB GFRNAA . eGFR-All Other Races >60 Result Comment: eGFR (Estimated GFR) Units of measure: mL/min/1.73 meters squared eGFR is derived from the reexpressed MDRD Study equation using the following parameters: serum creatinine, age, gender and race. The creatinine assay has been calibrated to be traceable to IDMS. An eGFR <60 mL/min/1.73m2 for >3 months is consistent with chronic kidney disease. Refer to KDOQI guidelines for clinical interpretation. In patients with unstable renal function, e.g. those with acute kidney injury, the eGFR may not accurately reflect actual GFR. Performed By: #### CBC, CMP #### [facility] [address] [phone] #### LIPB #### [facility] [address] [place] [address] LIPID PANEL, BASIC Collected: 10/31/2017 Status: F Source: [place] 4:31 AM CLINIC OTHER CAMPUS REPOSITORY TYPE CODE TESTS RESULT OUT OF REFERENCE UNITS RANGE LAB CHOL <200 mg/dL Cholesterol High 229 Result Comment: <200 mg/dL, Desirable 200-239 mg/dL, Borderline high >239 mg/dL, High LAB TRIGLY <150 mg/dL Triglyceride High 290 Result Comment: <150 mg/dL, Normal 150-199 mg/dL, Borderline high 200-499 mg/dL, High >499 mg/dL, Very high LAB HDL >39 mg/dL HDL-Cholesterol Low 34 Result Comment: 40-59 mg/dL, Acceptable >59 mg/dL, High: Negative risk factor for coronary heart disease <40 mg/dL, Low: Positive risk factor for coronary heart disease LAB LDL <100 mg/dL LDL-Cholesterol High 137 Result Comment: <100 mg/dL, Optimal 100-129 mg/dL, Near optimal/above optimal 130-159 mg/dL, Borderline high 160-189 mg/dL, High >189 mg/dL, Very high Secondary prevention optimal LDL Cholesterol levels are recommended to be < 70 mg/dL LAB NONHDL <130 mg/dL Non HDL High Cholesterol 195 Result Comment: <130 mg/dL, Optimal 130-159 mg/dL, Near optimal/above optimal 160-189 mg/dL, Borderline high 190-219 mg/dL, High >219 mg/dL, Very high Secondary prevention optimal non HDL Cholesterol levels are recommended to be < 100 mg/dL LAB FT hrs Fasting Time Unknown LAB VLDL <30 mg/dL VLDL 58 High Cholesterol LAB TCHDL <5.10 TC:HDL Ratio High 6.74 LAB LDLHDL <2.54 LDL:HDL Ratio High 4.03 Result Comment: Reference: 1. National Cholesterol Education Program ATP III Guideline At-A-Glance Quick Desk Reference: National Heart, Lung, and Blood [place]. National Institutes of Health. 2001: NIH Publication No. 01-3305. 2. An International Atherosclerosis Society position paper: global recommendations for the management of dyslipidemia: executive summary, Atherosclerosis. 2014: 232(2):410-413. Performed By: #### CBC, CMP #### [facility] [address] [phone] #### LIPB #### [place] [address] TROPONIN T Collected: 10/31/2017 Status: F Source: [place] 4:31 AM [facility] [place] REPOSITORY TYPE CODE TESTS RESULT OUT OF REFERENCE UNITS RANGE LAB TROPT 0.000-0.029 ng/mL Troponin T <0.010 Performed By: #### JAK #### [facility] [address] [phone] EKG Observed: 10/30/2017 Status: F Source: [place] 10:47 PM [facility] [place] REPOSITORY NAME : JOÃO CASTILLO PID : [id number] : 1975 Gender : Female Race : ORD : [id number] Procedure Date : Oct 30 2017 22:47:13 Edit Date : Oct 31 2017 09:42:11 Diagnosis:NORMAL SINUS RHYTHM NORMAL ECG WHEN COMPARED WITH ECG OF 30-OCT-2017 15:58, NONSPECIFIC T WAVE ABNORMALITY, IMPROVED IN ANTERIOR LEADS Confirmed by MD Johann, Qarab ([id number]) on 10/31/2017 9:41:58 AM Ventricular Rate : 66 BPM Atrial Rate : 66 BPM P-R Interval : 132 ms QRS Duration : 78 ms Q-T Interval : 438 ms QTC Calculation(Bezet) : 459 ms P [place] : -7 degrees R [place] : 3 degrees T [place] : 4 degrees Test Reason : Arrhythmia Location : 16 : 4S 403-1 Overread By : MD Wills Qarab Edited By : MD Wills Qarab Referred By : TONY Acquired by : GENNA, TROPONIN T Collected: 10/30/2017 Status: F Source: [place] 10:40 PM CLIN[facility] OTHER CAMPUS REPOSITORY TYPE CODE TESTS RESULT OUT OF REFERENCE UNITS RANGE LAB TROPT 0.000-0.029 ng/mL Troponin T <0.010 Performed By: #### JAK #### [facility] [address] [phone] HISTORY PHYSICAL Observed: 10/30/2017 Status: COMPLETED Source: [place] 6:03 PM [facility] OTHER [facility]AMP[facility] REPOSITORY HNO ID: [id number] Author: Ruby Dick Service: General Internal Medicine Author Type: Physician Type: HANDP Filed: 10/31/2017 10:55 AM Note Text: HOSPITAL MEDICINE HISTORY AND PHYSICAL EXAM PATIENT NAME: João Castillo SERVICE DATE: 10/30/2017 SERVICE TIME: 6:03 PM Primary Care Physician: Gwyn Small MD NIGHT COVERAGE Page [phone] for any questions between 5.30p-7.30a Attending Note I have personally performed a face to face assessment of the patient and have reviewed the PA-C note. My dia findings include: History is collected and confirmed as documented below. Exam is performed and confirmed as documented below. Assessment/Plan are as discussed and developed with the DAY CARE CENTER DIRECTOR, as documented above. ? 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 She checked her applewatch and her pulse was fluctuating from the 40's to the 170's. Associated with heartburn. No chest pain. -She does have a hx of palpitations and was scheduled for a holter test but she did not do it as lost his insurance. -Has a hx of SOLANGE.Currently Stopped using her CPAP due to some Rhinitis symptoms. -She was on synthroid in the past but Was told her TFT was normal so it was stopped.Last TSH on 07/30 was normal at 1.430 -She Takes vyvanse about 4 days a week for ADHD. -Drinks coffee almost daily which is usual for her -Takes nexium for GERD. -Admits to hx of anxiety.Not on rx. On admission, cardiac enzymes negative for ACS but she has some EKG changes. Currently asymptomatic but very anxious. PLAN: Counseled and reassured Stress echo today Await cardiology input If negative work up, anxiety mgt needs to discussed. Continue current mgt. Ruby Dick MD ASSESSMENT AND PLAN Active Hospital Problems Diagnosis - Palpitations She wears an apple watch that monitors her HR and states it read 170s and then 40s-50s. She felt palpitations while the watch showed elevated HR. Normal TFTs 07/2017. VSS afebrile. HStrop <6 x2, CK MB unremarkable, D-dimer <190. CXR NAP. EKG without ST changes but TWI in III and V1. Trend trop, tele. Cards consult. SUBJECTIVE CHIEF COMPLAINT: palpitations HPI: This is a 41 year old female with PMHx HLD, hypothyroid, SOLANGE on CPAP who presents with palpitations that started early this morning. She wears an apple watch that monitors her HR and states it read 170s and then 40s-50s. She felt palpitations while the watch showed elevated HR. She has left jaw pain that started today that she believes is due to a tooth ache. Associated lightheaded and episodic diaphoresis. No CP, SOB, n/v/d/f/c. She is currently in school and states that she has some anxiety but this presentation is abnormal. She has been on vyvanse on and off for the past 3 months and restarted it one month ago and takes it on average 4 days a week. VSS afebrile. HStrop <6 x2, CK MB unremarkable, D-dimer <190. CXR NAP. CBC, CMP unremarkable. Normal TFTs 07/2017. Not always compliant with CPAP. PAST MEDICAL HISTORY: PAST MEDICAL HISTORY Diagnosis Date - Asthma - Attention deficit hyperactivity disorder, predominantly inattentive type - Carpal tunnel syndrome - Environmental allergies - GERD (gastroesophageal reflux disease) on ppi - Hyperlipidemia - Hypothyroid - Multiple lung nodules followed by pulmonology - Tardive dyskinesia Ativan - Tic douloureux myoclonus jerk, more with stress, caffeine PAST SURGICAL HISTORY: PAST SURGICAL HISTORY Procedure Laterality Date - HYSTERECTOMY HX May 2012 lap:fibroids, no cancer, uterus and cervix only - KNEE RIGHT OP SURGERY arthroscopy - REMOVAL GALLBLADDER lap constantino - REPAIR INCISIONAL HERNIA 03/30/2014 - RHINOPLASTY 2004 deviated septum - TONSILLECTOMY HX FAMILY HISTORY: FAMILY HISTORY Problem Relation Age of Onset - Hypertension Mother - colorectal cancer [Other] [OTHER] Other Aunt - Hypertension Maternal Grandmother - Stroke Maternal Grandmother - Hypertension Maternal Grandfather - Diabetes Maternal Grandfather - Glaucoma Maternal Grandfather - Breast Cancer Maternal Aunt 6 sisters have had breast cancer - Breast Cancer Mother - Diabetes Maternal Grandmother SOCIAL HISTORY: Social History Substance Use Topics - Smoking status: Former Smoker Packs/day: 0.20 Years: 10.00 Types: Cigarettes Quit date: 04/22/2012 - Smokeless tobacco: Never Used - Alcohol use Yes Comment: special occasions MEDICATIONS: Reviewed ALLERGIES: ALLERGIES Allergen Reactions - Keflex [Cephalexin] Anaphylaxis - Adderall [Dextroamp* Other: See Comments elevated blood pressure - Seasonal Allergies Other: See Comments Cats, Molds - Tape [Adhesive Tape* Rash - Zoloft [Sertraline * Other: See Comments Made her feel horrible - Penicillins Rash 10/30/17: patient reports skin test performed in early 2016 showed she is not allergic to penicillins anymore, but patient has not tried any pencillin since skin test results. REVIEW OF SYSTEM: PAIN ASSESSMENT: Negative for pain, history of chronic pain, or current treatment for a chronic pain condition. GENERAL: No weight loss, malaise or fevers. HEENT: Negative for frequent or significant headaches, No changes in hearing or vision, no nose bleeds or other nasal problems NECK: Negative for lumps, goiter, pain and significant neck swelling RESPIRATORY: Negative for cough, hemoptysis, wheezing or shortness of breath CARDIOVASCULAR: +palpitations. Negative for chest pain, leg swelling. GI: No nausea, vomiting, or diarrhea : No history of dysuria, frequency or incontinence. MUSCULOSKELETAL: Negative for joint pain or swelling, back pain or muscle pain. SKIN: Negative for lesions, rash, and itching. PSYCH: Negative for sleep disturbance, mood disorder and recent psychosocial stressors. HEMATOLOGY/LYMPHOLOGY: Negative for prolonged bleeding, bruising easily or swollen nodes. ENDOCRINE: Negative for cold or heat intolerance, polyuria, polydipsia and goiter. NEURO: No history of headaches, syncope, paralysis, seizures or tremors OBJECTIVE PHYSICAL EXAM: BP 129/78 Pulse 86 Temp (Src) 98.6 (Oral) Resp 16 Ht 5' 6 (1.68m) Wt 227 lb 1.2 oz (103.0kg) SpO2 98% LMP 01/26/2011 BMI 36.67 kg/(m2). GENERAL: alert, no distress, cooperative SKIN: Skin color, texture, turgor normal. No rashes or lesions. NECK: no jugulovenous distention, supple BACK: Back symmetric, Normal curvature, ROM normal, No CVAT. LUNGS: Lungs clear to auscultation. Good diaphragmatic excursion. CARDIAC: RRR; no rubs, murmurs, or gallops ABDOMEN: Abdomen soft, non-tender. BS normal. No masses or organomegaly. EXTREMITIES: Extremities normal. No deformities, edema, clubbing or skin discoloration., No ulcers NEURO: Sensation grossly intact., Cranial nerves II-XII intact DATA: Diagnostic tests reviewed for today's visit: Most recent labs Most recent imaging Most recent EKG CBC: WBC 7.31 10/30/2017 HGB 14.7 10/30/2017 Hematocrit 43.0 10/30/2017 Platelet Count 274 10/30/2017 CMP: Sodium 141 10/30/2017 Potassium 3.8 10/30/2017 BUN 12 10/30/2017 Creatinine 0.92 10/30/2017 Glucose 118 10/30/2017 Chloride 102 10/30/2017 CO2 28 10/30/2017 VTE Prophylaxis: Early Ambulation Disposition: Home Plan of care discussed with: Patient, and RN SIGNATURE: Prudence Bear PA-C DATE: October 30, 2017 TIME: 6:03 PM CASE MGT INIT Observed: 10/30/2017 Status: COMPLETED Source: [facility] 4:31 PM CLINIC OTHER CAMPUS REPOSITORY HNO ID: [id number] Author: Mitzi (Rn) ANGELLA Gallardo Service: (none) Author Type: Registered Nurse Type: Care Mgt Initial Assessment Filed: 10/30/2017 4:41 PM Note Text: CARE MANAGEMENT: ASSESSMENT AND DISCHARGE PLAN SERVICE DATE: 10/30/2017 SERVICE TIME: 4:15 pm floor tech met with patient and patients at bedside in the emergency department. Introduction made and role of case management explained. Patient states she is agreeable to assessment questions and gives permission for to remain at bedside. Assessment information provided by electronic medical record and patient. 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 No Advance Directive: Current Advance Directive: None Health Literacy: 1. How often do you need to have someone help you when you read instructions, pamphlets, or other written material from your doctor or pharmacy? Never - 1 2. How confident are you filling out medical forms by yourself? Extremely - 1 If Patient scores > 3 on either question, the following interventions were put into place: Patient did not score > 3 FUNCTIONAL AND COGNITIVE/BEHAVIORAL PRIOR TO ADMISSION: Baseline Mental Status: Alert AND Oriented, Person, Place , Time and Situation Functional Status: Independent Does Patient Currently Receive Any Community Services or Home Care? None Equipment Prior to Admission: CPAP: MobGold Has the Patient Been in a Correction Facility in the Past 30 days? No SOCIAL: Living Arrangement: Home Lives With: Spouse and Children Financial Resources: Employed Primary Contact: Jersey Castillo Mobile Relation: Spouse Supportive: Yes Other Important Patient Contacts: None Caregiver Assessment: Caregiver is ready, willing and able to meet the patient's needs as recommended by the inter-professional team? No Caregiver Needed Patient's transition needs and plan for meeting these needs: Home/Self Care Does the patient have an acute stroke diagnosis, or has the patient had a stroke during this admission? No Medication Adherence: I am convinced of the importance of my prescription medication: Agree completely - 0 I worry that my prescription medication will do more harm than good to me Disagree mostly - 0 I feel financially burdened by my [id number]-[id number] expenses for my prescription medication: Disagree mostly -0 Patient is categorized as low risk < 2 Pharmacy Preference: [facility] in [place] Are you interested in bedside delivery of your medications? No Patient states she went off her prescription medication for one month after her lost his job. Patient states she is currently taking all of her prescription medications as prescribed. Food Concerns: In the Last Month, Have You had Trouble Getting Food? No trouble getting food During the Last Month, Have You Worried Whether Your Food Would Run Out Before You Had Enough Money to Buy More? No Is the Patient Psychosocially Complex? No ASSESSMENT AND PLAN: Medical Needs: 2 or more chronic diseases Past Medical History: SOLANGE/CPAP - Dyslipidemia - Asthma - Hypothyroidism Psychosocial Needs: None FREEDOM OF CHOICE EXPLAINED: N/A POTENTIAL TRANSITION PLANS Discharge Needs: To Be Determined Home/Self Care Discharge Transportation: Family to Transport Patient denies any discharge needs or concerns at this time Patient informed Care Management is available to aid in discharge planning needs. Primary Care Physician: Gwyn Small MD - [facility] Summary of Care to be sent at discharge. SIGNATURE: Mitzi Gallardo RN PATIENT NAME: João Castillo DATE: October 30, 2017 TIME: 4:31 PM PAGER/CONTACT #: [phone] PLAN OF CARE Observed: 10/30/2017 Status: COMPLETED Source: [place] 4:09 PM CLINIC OTHER CAMPUS REPOSITORY HNO ID: [id number] Author: Hillary Kapoor (Pharmacist) Service: Pharmacy Author Type: Pharmacist Type: Plan of Care Filed: 10/30/2017 4:10 PM Note Text: MEDICATION HISTORY Patient Name:Roxi Castillo : 1975 Source of history:Patient: Reliability of source: Appears reliable, clearly identified: Medication name, Medication dose, Medication route, Medication frequency and Timing of last dose and OARRS Medication Nonadherence Identified: No barriers noted The above information represents the best possible medication history: Yes Additional comments: ? Medications removed: ? Diane D ? Diane ? Medications adjusted: ? None ? Medications added: ? Multivitamin ? Vyvanse 20mg capsules - patient's current dose and strength (patient has not filled 30mg script yet) ? Allergy list modifications: ? Added '10/30/17: patient reports skin test performed in early 2016 showed she is not allergic to penicillins anymore, but patient has not tried any pencillin since skin test results.' to penicillin allergy Allergies: ALLERGIES Allergen Reactions - Keflex [Cephalexin] Anaphylaxis - Adderall [Dextroamp* Other: See Comments elevated blood pressure - Seasonal Allergies Other: See Comments Cats, Molds - Tape [Adhesive Tape* Rash - Zoloft [Sertraline * Other: See Comments Made her feel horrible - Penicillins Rash 10/30/17: patient reports skin test performed in early 2016 showed she is not allergic to penicillins anymore, but patient has not tried any pencillin since skin test results. 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 Unknown at Unknown time Yes therapeutic multivitamin w/ iron (THERAGRAN-M) 9 mg iron-400 mcg tablet Take 1 tablet by mouth once daily. Unknown at Unknown time Yes lisdexamfetamine (VYVANSE) 20 mg capsule Take 20 mg by mouth once daily. . (Dose INCREASED to 30mg, but patient has NOT filled new Rx yet) Unknown at Unknown time Yes lisdexamfetamine (VYVANSE) 30 mg capsule Take 30 mg by mouth once daily. . (PATIENT HAS NOT STARTED; NEW RX) Unknown at Unknown time Yes albuterol HFA (PROAIR HFA) 90 mcg/actuation inhaler Inhale 2 Puffs as instructed every 4 hours as needed. Past Week at Unknown time Yes esomeprazole (NEXIUM) 40 mg capsule Take 1 capsule by mouth once daily. Unknown at Unknown time Yes fluticasone (FLOVENT HFA) 110 mcg/actuation inhaler Inhale 1 Puff as instructed twice daily. Unknown at Unknown time Yes COMPOUNDED PRESCRIPTION CPAP with supplies at 9 CM H2O with humidification. Dx: G47.33 Unknown at Unknown time Yes COMPOUNDED PRESCRIPTION CPAP with supplies at 9 CM H2O with humidification. Dx: G47.33 Unknown at Unknown time Yes COMPOUNDED PRESCRIPTION CPAP with supplies at 9 CM H2O with humidification. Dx: G47.33 Unknown at Unknown time Yes HILLARY KAPOOR, PHARMACIST October 30, 2017 4:09 PM EKG Observed: 10/30/2017 Status: F Source: [place] 3:58 PM CLINIC OTHER CAMPUS REPOSITORY NAME : JOÃO CASTILLO PID : [id number] : 1975 Gender : Female Race : ORD : [id number] Procedure Date : Oct 30 2017 15:58:01 Edit Date : Oct 31 2017 09:56:00 Diagnosis:NORMAL SINUS RHYTHM WHEN COMPARED WITH ECG OF 30-OCT-2017 14:36, NO SIGNIFICANT CHANGE WAS FOUND Confirmed by MD Wills Qarab ([id number]) on 10/31/2017 9:53:58 AM Ventricular Rate : 84 BPM Atrial Rate : 84 BPM P-R Interval : 134 ms QRS Duration : 74 ms Q-T Interval : 390 ms QTC Calculation(Bezet) : 460 ms P [place] : 13 degrees R [place] : -20 degrees T [place] : -4 degrees Test Reason : Palpitations Location : 1 : ER 1 Overread By : MD Wills Qarab Edited By : MD Wills Qarab Referred By : BRYSON SANTIAGO, Acquired by : HIGH BRIANNA SENS TROPONIN T Collected: 10/30/2017 Status: F Source: [place] 3:54 PM CLINIC OTHER CAMPUS REPOSITORY TYPE CODE TESTS RESULT OUT OF REFERENCE UNITS RANGE LAB HSTN <12 ng/L High Sensitivity JAK <6 Result Comment: When assessing risk for acute coronary syndromes: In patients undergoing blood draw greater than or equal to 2 hours from symptom onset, with history of very low to moderate risk and non-ischemic ECG, an initial hs-Troponin T less than 12 ng/L AND a 1 hour delta hs-Troponin T less than 3 ng/L should be considered very low risk for 30 day MACE. Performed By: #### HSTNT #### [facility] [address] [place] [address] TROPONIN T Collected: 10/30/2017 Status: F Source: [place] 3:54 PM [facility] OTHER [place] REPOSITORY TYPE CODE TESTS RESULT OUT OF REFERENCE UNITS RANGE LAB TROPT 0.000-0.029 ng/mL Troponin T <0.010 Performed By: #### JAK #### [facility] [address] [place] [address] XR CHEST 1V FRONTAL Observed: 10/30/2017 Status: F Source: [facility] 3:00 PM CLINIC OTHER CAMPUS REPOSITORY * * *Final Report* * * DATE OF EXAM: Oct 30 2017 3:00PM MDX [id number] - XR CHEST 1V FRONTAL PORT / PROCEDURE REASON: Chest pain or SOB, pleurisy or effusion suspected * * * * Physician Interpretation * * * * EXAMINATION: CHEST RADIOGRAPH (PORTABLE SINGLE VIEW AP) Exam Date/Time: 10/30/2017 3:00 PM Clinical History: Chest pain or SOB, pleurisy or effusion suspected MQ: [id number] Comparison: 12/13/2016 RESULT: See impression. IMPRESSION: Lines, tubes, and devices: None. Lungs and pleura: No edema, infiltrates, pulmonary nodules or pleural effusions. Cardiomediastinal silhouette: Stable cardiomediastinal silhouette. Other: . Mica Splitter: RICHARD Transcribe Date/Time: Oct 30 2017 3:07P Dictated by : SUNNY GONZALEZ MD This examination was interpreted and the report reviewed and electronically signed by: SUNNY GONZALEZ MD on Oct 30 2017 3:08PM EST [id number] ED PROV NOTE Observed: 10/30/2017 Status: COMPLETED Source: [place] 2:50 PM CLINIC OTHER CAMPUS REPOSITORY HNO ID: [id number] Author: Thierry Hilton MD Service: (none) Author Type: Physician Type: ED Provider Notes Filed: 10/30/2017 4:07 PM Note Text: ED Provider Note Patient Name: João Castillo SERVICE DATE: 10/30/17 History Patient presents with: Chest Pain Ms. Castillo is a pleasant 41 yo F who formerly smoked, though not recently with a history of hyperlipidemia and known hypertension or diabetes, as well as having had her father had an ND relatively young, who now presents with left lower jaw discomfort intermittently over the last 4-5 hours as well as palpitations and the sensation that her heart rate is up in the 170s, per her fitness watch, as well as as low as in the 40s. She feels a bit lightheaded and has sometimes been sweaty. She denies nausea or radiation of any discomfort to her chest or to her arms. She hasn't had similar symptoms previously, which prompted her concern and her evaluation here. PAST MEDICAL HISTORY Diagnosis Date - Asthma - Attention deficit hyperactivity disorder, predominantly inattentive type - Carpal tunnel syndrome - Environmental allergies - GERD (gastroesophageal reflux disease) on ppi - Hyperlipidemia - Hypothyroid - Multiple lung nodules followed by pulmonology - Tardive dyskinesia Ativan - Tic dou[place]oureux myoclonus jerk, more with stress, caffeine PAST SURGICAL HISTORY Procedure Laterality Date - HYSTERECTOMY HX May 2012 lap:fibroids, no cancer, uterus and cervix only - KNEE RIGHT OP SURGERY arthroscopy - REMOVAL GALLBLADDER lap constantino - REPAIR INCISIONAL HERNIA 03/30/2014 - RHINOPLASTY 2004 deviated septum - TONSILLECTOMY HX FAMILY HISTORY Problem Relation Age of Onset - Hypertension Mother - colorectal cancer [Other] [OTHER] Other Aunt - Hypertension Maternal Grandmother - Stroke Maternal Grandmother - Hypertension Maternal Grandfather - Diabetes Maternal Grandfather - Glaucoma Maternal Grandfather - Breast Cancer Maternal Aunt 6 sisters have had breast cancer - Breast Cancer Mother - Diabetes Maternal Grandmother Social History Social History Main Topics - Smoking status: Former Smoker Packs/day: 0.20 Years: 10.00 Types: Cigarettes Quit date: 04/22/2012 - Smokeless tobacco: Never Used - Alcohol use Yes Comment: special occasions - Drug use: No - Sexual activity: Yes Partners: Male ALLERGIES Allergen Reactions - Keflex [Cephalexin] Anaphylaxis - Adderall [Dextroamp* Other: See Comments elevated blood pressure - Seasonal Allergies Other: See Comments Cats, Molds - Tape [Adhesive Tape* Rash - Zoloft [Sertraline * Other: See Comments Made her feel horrible - Penicillins Rash Review of Systems Constitutional: Negative for chills and fever. HENT: Negative for ear pain, rhinorrhea and sore throat. + jaw pain Respiratory: Positive for shortness of breath. Negative for cough. Cardiovascular: Positive for palpitations. Negative for chest pain and leg swelling. Gastrointestinal: Negative for abdominal pain, diarrhea, nausea and vomiting. Genitourinary: Negative for dysuria, flank pain, frequency and hematuria. Musculoskeletal: Negative for back pain. Skin: Negative for rash. Neurological: Negative for speech difficulty, weakness, light-headedness, numbness and headaches. Psychiatric/Behavioral: Negative for hallucinations and suicidal ideas. The patient is nervous/anxious. Physical Exam BP 170/79 Pulse 101 Temp (Src) 97.9 (Oral) Resp 16 Wt 230 lb (104.3kg) SpO2 99% LMP 01/26/2011 Physical Exam Constitutional: She is oriented to person, place, and time. She appears well-developed and well-nourished. No distress. HENT: Head: Normocephalic and atraumatic. Mouth/Throat: No oropharyngeal exudate. Eyes: Pupils are equal, round, and reactive to light. Neck: Normal range of motion. Neck supple. No tracheal deviation present. Cardiovascular: Normal rate and intact distal pulses. Exam reveals no gallop and no friction rub. No murmur heard. Pulmonary/Chest: Effort normal and breath sounds normal. No respiratory distress. She has no wheezes. She has no rales. Abdominal: Soft. Bowel sounds are normal. She exhibits no distension. There is no tenderness. There is no rebound and no guarding. Musculoskeletal: Normal range of motion. She exhibits no edema. Neurological: She is alert and oriented to person, place, and time. No cranial nerve deficit. She exhibits normal muscle tone. Skin: Skin is warm and dry. No erythema. Psychiatric: She has a normal mood and affect. Her behavior is normal. Judgment and thought content normal. Nursing note and vitals reviewed. DECISION SUPPORT - ED (all recorded) Pulmonary Embolism Row Name 10/30/17 1449 PERC Is pretest probability for PE > than 15% ? Age > 50 0 HR >= 100 1 spO2 on room air < 95% ? History of prior PE or DVT 0 Recent Trauma or Surgery ? Hemoptysis? ? Exogenous Estrogen? ? Unilateral leg swelling ? PERC Score = ? If PERC Score > 0 - The PERC rule is not satisfied and cannot be used to rule out Pulmonary Embolism for this patient Proceed to [facility]' Clinical signs and symptoms of DVT 0 PE is #1 Diagnosis, or equally likely 0 Heart Rate is > 100 1.5 Immobilization at least 3 days or surgery in the previous 4 weeks 0 Previous objectively diagnosed PE or DVT 0 Hemoptysis 0 Malignancy with treatment within 6 months or palliative 0 Wells' Score = 1.5 Chest Pain Pathway History of Present Symptoms: Low Risk ECG Findings: New T-wave Inversion Number of Risk Factors: 4 Initial High Sensitivity Troponin: <12 ng/l Delta Troponin: <3 ng/l Total Heart Score: 2 Based on the above information, patient is at moderate risk for a Major Adverse Cardiac Event at 30 days Diagnostic Testing ED Labs Ordered and Reviewed - No data to display Procedures Medical Decision Making MDM Course: Vital signs were reviewed. Triage records were reviewed. Medical records were reviewed. Nursing notes were reviewed and incorporated. The following medications were administered: ASA Patient placed on monitor ECG reviewed and interpreted as NSR @ 95 bpm no STEMI non- specific T wave changes anterior leads (somewhat had them previously, but more pronounced today) Labs reviewed and interpreted as below. Radiographs were reviewed as below. Medical Decision Making: Differential diagnosis: ACS somewhat less likely, though T waves different from previous ECG, electrolyte disarray, anemia, stress, PE, checking d-dimer, pneumothorax, pneumonia, arrhythmia. 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 We will repeat her ECG as she awaits the results of the workup, and do multiple high sensitivity troponins, and probably discuss with cardiology for consideration of watching her here. ECG repeated and stable. Hs trop negative. Admitted for further care. The attending who evaluated and managed this patient was Thierry Hilton . Plan: The patient was admitted to Regular nursing floor. Case discussed with admitting physician, Dr. Dick, after discussion w/ Dr. Tan who agreed reasonable to admit here. Consent: A procedure or transfusion was performed - No Thierry Hilton MD ED Course / Clinical Impression Plan SIGNATURE: MD Thierry Reese MD 10/30/17 1602 ED NOTE Observed: 10/30/2017 Status: COMPLETED Source: [place] 2:49 PM [facility] REPOSITORY HNO ID: [id number] Author: Char (Medic) Keke Garcia Service: Emergency Medicine Author Type: Continuity Director and Client Technical Professional Type: ED Notes Filed: 10/30/2017 2:49 PM Note Text: Labs were drawn and sent. CBC AND DIFFERENTIAL Collected: 10/30/2017 Status: F Source: [place] 2:49 PM [facility] REPOSITORY TYPE CODE TESTS RESULT OUT OF REFERENCE UNITS RANGE LAB WBC 3.70-11.00 k/uL WBC 7.31 LAB RBC 3.90-5.20 m/uL RBC 5.05 LAB HGB 11.5-15.5 g/dL Hemoglobin 14.7 LAB HCT 36.0-46.0 % Hematocrit 43.0 LAB MCV 80.0-100.0 fL MCV 85.1 LAB MCH 26.0-34.0 pG MCH 29.1 LAB MCHC 30.5-36.0 g/dL MCHC 34.2 LAB RDWCV 11.5-15.0 % RDW-CV 13.2 LAB PLTCT 150-400 k/uL Platelet Count 274 LAB MPV 9.0-12.7 fL MPV 10.2 LAB ANEUT % Neut% 56.9 LAB AANEUT 1.45-7.50 k/uL Abs Neut 4.16 LAB ALYMP % Lymph% 31.9 LAB AALYMP 1.00-4.00 k/uL Abs Lymph 2.33 LAB AMONO % Nolan% 6.4 LAB AAMONO <0.87 k/uL Abs Nolan 0.47 LAB AEOS % Eosin% 4.5 LAB AAEOS <0.46 k/uL Abs Eosin 0.33 LAB ABASO % Baso% 0.3 LAB AABASO <0.11 k/uL Abs Baso <0.03 Performed By: #### CBCDIF, PT, PTT, CMP, MG1 #### [facility] [address] [facility] [phone] PROTIME Collected: 10/30/2017 Status: F Source: [place] 2:49 PM CLINIC OTHER CAMPUS REPOSITORY TYPE CODE TESTS RESULT OUT OF RANGE REFERENCE UNITS LAB PSEC 9.7-13.0 sec PT Sec 10.0 LAB INR 0.9-1.3 PT INR 1.0 Result Comment: Vitamin K Antagonist (VKA) Therapeutic Range: INR 2 to 3 (Target INR of 2.5) Note: For patients treated with VKA drugs, such as warfarin, the [place] [employer] 2012 Guideline recommends a therapeutic INR range of 2 to 3 (target INR of 2.5). This recommendation includes high-risk patients with antiphospholipid syndrome with previous arterial or venous thromboembolism, current-generation mechanical or bioprosthetic aortic heart valve replacement. Note: Patients with mechanical aortic valve replacement and additional risk factors for thromboembolic events (atrial fibrillation, previous thromboembolism, LV dysfunction, hypercoagulable conditions) or an older generation mechanical AVR (i.e., ball in-Cage) or any mechanical MVR should have a INR therapeutic range of 2.5 to 3.5 (target INR of 3). Rickey GH, et al. Chest 2012, 141:7S-47S Seven RA, et al. [facility] 2017, 70: 252-289 Performed By: #### CBCDIF, PT, PTT, CMP, MG1 #### [facility] [address] [facility] [phone] APTT Collected: 10/30/2017 Status: F Source: [place] 2:49 PM CLINIC OTHER CAMPUS REPOSITORY TYPE CODE TESTS RESULT OUT OF RANGE REFERENCE UNITS LAB APTT 23.0-32.4 sec APTT 26.6 Result Comment: Unfractionated Heparin Therapeutic Ranges: Standard Heparin Nomogram: 53 to 78 seconds (anti-Xa level of 0.3 to 0.7 U/ml) Low Dose/ACS Nomogram: 49 to 67 seconds (anti-Xa level of 0.2 to 0.5 U/ml) Stroke Treatment Nomogram: 49 to 67 seconds (anti-Xa level of 0.2 to 0.5 U/ml) Note: The APTT therapeutic range has been determined for the current lot of laboratory APTT reagent in use throughout the [facility]. Performed By: #### CBCDIF, PT, PTT, CMP, MG1 #### [facility] [address] [place] [address] COMP METABOLIC PANEL Collected: 10/30/2017 Status: F Source: [place] 2:49 PM CLINIC OTHER CAMPUS REPOSITORY TYPE CODE TESTS RESULT OUT OF REFERENCE UNITS RANGE LAB TP 6.3-8.0 g/dL Protein, Total 6.9 LAB ALB 3.9-4.9 g/dL Albumin 4.0 LAB CA 8.5-10.2 mg/dL Calcium, Total 9.5 LAB TBIL 0.2-1.3 mg/dL Bilirubin, Total 0.3 LAB ALKP 32-117 U/L Alkaline Phosphatase 76 LAB AST 13-35 U/L AST 17 LAB GLU 74-99 mg/dL Glucose High 118 Result Comment: The [place] [employer] (ADA) provides guidance for cutoff values for fasting glucose and random glucose. The ADA defines fasting as no caloric intake for at least 8 hours. Fas ting plasma glucose results between 100 to 125 mg/dL indicate increased risk for diabetes (prediabetes). Fasting plasma glucose results greater than or equal to 126 mg/dL meet the criteria for diagnosis of diabetes. In the absence of unequivocal hyperglycemia, results should be confirmed by repeat testing. In a patient with classic symptoms of hyperglycemia or hyperglycemic crisis, random plasma glucose results greater than or equal to 200 mg/dL meet the criteria for diagnosis of diabetes. Reference: Standards of Medical Care in Diabetes 2016, [place] [employer]. Diabetes Care. 2016.39(Suppl 1). LAB BUN 7-21 mg/dL BUN 12 LAB CRET 0.58-0.96 mg/dL Creatinine 0.92 LAB NA 136-144 mmol/L Sodium 141 LAB K 3.7-5.1 mmol/L Potassium 3.8 LAB CL 97-105 mmol/L Chloride 102 LAB CO2 22-30 mmol/L CO2 28 LAB AGAP 9-18 mmol/L Anion Gap 11 LAB ALT 7-38 U/L ALT 26 LAB GFRAA eGFR- Amer. >60 LAB GFRNAA . eGFR-All Other Races >60 Result Comment: eGFR (Estimated GFR) Units of measure: mL/min/1.73 meters squared eGFR is derived from the reexpressed MDRD Study equation using the following parameters: serum creatinine, age, gender and race. The creatinine assay has been calibrated to be traceable to IDMS. An eGFR <60 mL/min/1.73m2 for >3 months is consistent with chronic kidney disease. Refer to KDOQI guidelines for clinical interpretation. In patients with unstable renal function, e.g. those with acute kidney injury, the eGFR may not accurately reflect actual GFR. Performed By: #### CBCDIF, PT, PTT, CMP, MG1 #### [facility] [address] [place] [address] MAGNESIUM Collected: 10/30/2017 Status: F Source: [place] 2:49 PM CLINIC OTHER CAMPUS REPOSITORY TYPE CODE TESTS RESULT OUT OF REFERENCE UNITS RANGE LAB MG 1.7-2.3 mg/dL Magnesium 2.0 Performed By: #### CBCDIF, PT, PTT, CMP, MG1 #### [facility] [address] [place] [phone] CK, TOTAL AND CKMB Collected: 10/30/2017 Status: F Source: [place] 2:49 PM CLINIC OTHER CAMPUS REPOSITORY TYPE CODE TESTS RESULT OUT OF REFERENCE UNITS RANGE LAB CK 42-196 U/L 85 CK LAB MB <4.3 ng/mL MB 1.3 LAB CKMBRI 0.0-4.0 % CK CK MB MB % not % reported with CK <100 U/L. Performed By: #### CKCKMB #### [facility] [address] [place] [address] D DIMER Collected: 10/30/2017 Status: F Source: [place] 2:49 PM CLINIC OTHER CAMPUS REPOSITORY TYPE CODE TESTS RESULT OUT OF REFERENCE UNITS RANGE LAB DDMER 0-500 ng/mL FEU D dimer <190 Result Comment: The D-dimer assay can be used to exclude pulmonary embolism (PE) and deep vein thrombosis (DVT) in conjunction with a low pre-test probability. For patients with a suspected DVT, a D-dimer level below 500 ng/mL FEU has a negative predictive value of 99.2%, a sensitivity of 98.9%, and a specificity of 36.1%. For patients with a suspected PE, a D -dimer level below 500 ng/mL FEU has a negative predictive value of 99.1%, a sensitivity of 97.8%, and a specificity of 41.7%. Performed By: #### DDMER #### [facility] [address] [phone] HIGH SENS TROPONIN T Collected: 10/30/2017 Status: F Source: [place] 2:49 PM [facility] REPOSITORY TYPE CODE TESTS RESULT OUT OF REFERENCE UNITS RANGE LAB HSTN <12 ng/L High Sensitivity JAK <6 Result Comment: When assessing risk for acute coronary syndromes: In patients undergoing blood draw greater than or equal to 2 hours from symptom onset, with history of very low to moderate risk and non-ischemic ECG, an initial hs-Troponin T less than 12 ng/L AND a 1 hour delta hs-Troponin T less than 3 ng/L should be considered very low risk for 30 day MACE. Performed By: #### HSTNT #### [facility] [address] [place], [place] [phone] ED NOTE Observed: 10/30/2017 Status: COMPLETED Source: [place] 2:43 PM [facility] REPOSITORY HNO ID: [id number] Author: Akiko Israel RN Service: (none) Author Type: Registered Nurse Type: ED Notes Filed: 10/30/2017 2:43 PM Note Text: Patient presents to ED with heart racing EKG Observed: 10/30/2017 Status: F Source: [place] 2:36 PM [facility] OTHER [place] REPOSITORY NAME : JOÃO CASTILLO PID : [id number] : 1975 Gender : Female Race : ORD : [id number] Procedure Date : Oct 30 2017 14:36:20 Edit Date : Oct 31 2017 09:56:26 Diagnosis:NORMAL SINUS RHYTHM POOR R-WAVE PROGRESSION ABNORMAL ECG WHEN COMPARED WITH ECG OF 27-MAY-2012 01:51, NO SIGNIFICANT CHANGE WAS FOUND Confirmed by MD Johann, Qarab ([id number]) on 10/31/2017 9:55:40 AM Ventricular Rate : 95 BPM Atrial Rate : 95 BPM P-R Interval : 124 ms QRS Duration : 76 ms Q-T Interval : 374 ms QTC Calculation(Bezet) : 469 ms P [place] : 15 degrees R [place] : -8 degrees T [place] : 11 degrees Test Reason : Palpitations Location : 1 : ER 1 Overread By : MD Wills Qarab Edited By : MD Wills Qarab Referred By : , Acquired by : HARVINDER ISRAEL Observed: 09/27/2017 Status: COMPLETED Source: [place] 10:41 AM [facility] REPOSITORY HNO ID: [id number] Author: Barry Gregory Service: (none) Author Type: Physician Yard Hostler Type: Progress Notes Filed: 09/27/2017 12:05 PM Note Text: Chief Complaint Patient presents with: Recheck: patient is here for follow up on medication HPI João Castillo is a 41 year old female who presents here today for med check. Does not feel like the vyvanse is lasting long enough. Does feel that it helps in first half of the day. Otherwise tolerating the medication. Headaches initially have resolved. If she takes the dose too late she has trouble sleeping. Denies chest pain or worsening shortness of breath. Denies palpitations. Has noticed some irritability when med is wearing off. Last 4 Encounter BP Readings: Date: BP: 09/27/2017 128/92 08/28/2017 128/84 07/30/2017 122/70 05/18/2017 120/72 Last 4 Encounter Wt Readings: Date: Wt: 09/27/2017 103.9 kg (229 lb) 08/28/2017 104.8 kg (231 lb) 07/30/2017 103.7 kg (228 lb 9.6 oz) 05/18/2017 103.2 kg (227 lb 9.6 oz) Past medical history, appointments, medications, allergies reviewed. Previous Medical History PAST MEDICAL HISTORY Diagnosis Date - Asthma - Attention deficit hyperactivity disorder, predominantly inattentive type - Carpal tunnel syndrome - Environmental allergies - GERD (gastroesophageal reflux disease) on ppi - Hyperlipidemia - Hypothyroid - Multiple lung nodules followed by pulmonology - Tardive dyskinesia Ativan - Tic douloureux myoclonus jerk, more with stress, caffeine Previous Surgical History PAST SURGICAL HISTORY Procedure Laterality Date - HYSTERECTOMY HX May 2012 lap:fibroids, no cancer, uterus and cervix only - KNEE RIGHT OP SURGERY arthroscopy - REMOVAL GALLBLADDER lap constantino - REPAIR INCISIONAL HERNIA 03/30/2014 - RHINOPLASTY 2004 deviated septum - TONSILLECTOMY HX Family History FAMILY HISTORY Problem Relation Age of Onset - Hypertension Mother - colorectal cancer [Other] [OTHER] Other Aunt - Hypertension Maternal Grandmother - Stroke Maternal Grandmother - Hypertension Maternal Grandfather - Diabetes Maternal Grandfather - Glaucoma Maternal Grandfather - Breast Cancer Maternal Aunt 6 sisters have had breast cancer - Breast Cancer Mother - Diabetes Maternal Grandmother Patient Allergies ALLERGIES Allergen Reactions - Keflex [Cephalexin] Anaphylaxis - Adderall [Dextroamp* Other: See Comments elevated blood pressure - Seasonal Allergies Other: See Comments Cats, Molds - Tape [Adhesive Tape* Rash - Zoloft [Sertraline * Other: See Comments Made her feel horrible - Penicillins Rash Current Medications Current Outpatient Prescriptions on File Prior to Visit: lisdexamfetamine (VYVANSE) 20 mg capsule Take 1 capsule by mouth once daily for 30 days. esomeprazole (NEXIUM) 40 mg capsule Take 1 capsule by mouth once daily. albuterol HFA (PROAIR HFA) 90 mcg/actuation inhaler Inhale 2 Puffs as instructed every 4 hours as needed. fluticasone (FLOVENT HFA) 110 mcg/actuation inhaler Inhale 1 Puff as instructed twice daily. omega-3 fatty acids 1,000 mg cap Take 2 capsules by mouth once daily. COMPOUNDED PRESCRIPTION CPAP with supplies at 9 CM H2O with humidification.Dx: G47.33 COMPOUNDED PRESCRIPTION CPAP with supplies at 9 CM H2O with humidification.Dx: G47.33 COMPOUNDED PRESCRIPTION CPAP with supplies at 9 CM H2O with humidification.Dx: G47.33 ALLERGY RELIEF-D,FEXOFENADINE, 60-120 mg per tablet Take 1 tablet by mouth once daily. fexofenadine (DIANE) 180 mg tablet Take 180 mg by mouth once daily. No current facility-administered medications on file prior to visit. 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 Social History Main Topics Smoking status: Former Smoker Packs/day: 0.20 Years: 10.00 Types: Cigarettes Quit date: 04/22/2012 Smokeless tobacco: Never Used Alcohol use: Yes Comment: special occasions Drug use: No Sexual activity: Yes Partners with: Male Other Topics Concern Service No Blood Transfusions No Caffeine Concern No Comment:uses caffeine Occupational Exposure No Hobby Hazards No Sleep Concern Yes Stress Concern Yes Weight Concern Yes Comment:has gained about 15 pounds Special Diet No Back Care No Exercise Yes Comment:4 times a week-aerobic and strength training Bike Helmet No Seat Belt Yes Self-Exams Yes Social History Narrative and lives with spouse and children Review of Symptoms REVIEW OF SYSTEMS See hpi EXAM: BP 128/92 (BP Site: Left Arm, BP Position: Sitting, BP Cuff Size: Large Adult) Pulse 84 Resp 14 Wt 103.9 kg (229 lb) LMP 01/26/2011 BMI 36.80 kg/m? General Appearance: Well appearing, alert, in no acute distress, well-hydrated, well nourished.. Lungs: Lungs clear to auscultation. No wheezing, rhonchi, rales. Heart: RRR without murmur, gallop, or rubs. No ectopy. PSYCH: Appearance: well dressed well groomed, cooperative and pleasant Behavior: good eye contact Speech: fluent and coherent Mood: happy Affect: appropriate Perceptions: none Thought process: goal directed Thought Content: normal Intelligence level: normal Insight: good Judgment: good Health Maintenance List DTAP,TDAP,TD(1 - Tdap) due on 11/10/1994 PAP EVERY 5 YEARS due on 11/10/2005 HPV EVERY 5 YEARS due on 11/10/2005 MAMMOGRAM due on 2015 INFLUENZA Completed ASSESSMENT/PLAN: 1. Attention deficit hyperactivity disorder (ADHD), predominantly inattentive type - ICD9: 314.00, ICD10: F90.0 (primary diagnosis) Increase to 30mg of vyvanse daily - LISDEXAMFETAMINE 30 MG CAPSULE 2. Mild persistent asthma without complication - ICD9: 493.90, ICD10: J45.30 Worse with seasonal allergies - Avoidance of triggers recommended - ALBUTEROL SULFATE HFA 90 MCG/ACTUATION AEROSOL INHALER 3. Seasonal allergic rhinitis, unspecified trigger - ICD9: 477.9, ICD10: J30.2 Continue current therapy Follow up in 4 months for routine OV/med check. OARRS website checked and validated. All prescriptions have been APPROPRIATELY filled. No suspicious activity was identified.- 09/27/2017 by AMANDA STEVEN PA-C The following approved medication requests have been transmitted electronically. Signed Prescriptions Disp Refills lisdexamfetamine (VYVANSE) 30 mg capsule 30 capsule 0 Sig: Take 1 capsule by mouth once daily for 30 days. LESLIE Class: C-II HEIDY: No albuterol HFA (PROAIR HFA) 90 mcg/actuation inhaler 1 Inhaler 2 Sig: Inhale 2 Puffs as instructed every 4 hours as needed. HEIDY: No JANNETH GREGORY PA-C CNOV Observed: 09/27/2017 Status: COMPLETED Source: [place] 10:20 AM [facility] REPOSITORY [facility] JO[facility]O CASTILLO ([id number]) 1975 F Date Time Provider Department 09/27/17 10:20 AM JASON GREGORY[facility] During your visit today, we recorded the following information about you: Pulse Respiration Blood pressure Weight 84/minute 14/minute 124/88 103.9 kg JANNETH GERGORY PA-C 09/27/2017 12:05 PM Signed Chief Complaint Patient presents with: Recheck: patient is here for follow up on medication HPI João Castillo is a 41 year old female who presents here today for med check. Does not feel like the vyvanse is lasting long enough. Does feel that it helps in first half of the day. Otherwise tolerating the medication. Headaches initially have resolved. If she takes the dose too late she has trouble sleeping. Denies chest pain or worsening shortness of breath. Denies palpitations. Has noticed some irritability when med is wearing off. Last 4 Encounter BP Readings: Date: BP: 09/27/2017 128/92 08/28/2017 128/84 07/30/2017 122/70 05/18/2017 120/72 Last 4 Encounter Wt Readings: Date: Wt: 09/27/2017 103.9 kg (229 lb) 08/28/2017 104.8 kg (231 lb) 07/30/2017 103.7 kg (228 lb 9.6 oz) 05/18/2017 103.2 kg (227 lb 9.6 oz) Past medical history, appointments, medications, allergies reviewed. Previous Medical History PAST MEDICAL HISTORY Diagnosis Date - Asthma - Attention deficit hyperactivity disorder, predominantly inattentive type - Carpal tunnel syndrome - Environmental allergies - GERD (gastroesophageal reflux disease) on ppi - Hyperlipidemia - Hypothyroid - Multiple lung nodules followed by pulmonology - Tardive dyskinesia Ativan - Tic douloureux myoclonus jerk, more with stress, caffeine Previous Surgical History PAST SURGICAL HISTORY Procedure Laterality Date - HYSTERECTOMY HX May 2012 lap:fibroids, no cancer, uterus and cervix only - KNEE RIGHT OP SURGERY arthroscopy - REMOVAL GALLBLADDER lap constantino - REPAIR INCISIONAL HERNIA 03/30/2014 - RHINOPLASTY 2004 deviated septum - TONSILLECTOMY HX Family History FAMILY HISTORY Problem Relation Age of Onset - Hypertension Mother - colorectal cancer [Other] [OTHER] Other Aunt - Hypertension Maternal Grandmother - Stroke Maternal Grandmother - Hypertension Maternal Grandfather - Diabetes Maternal Grandfather - Glaucoma Maternal Grandfather - Breast Cancer Maternal Aunt 6 sisters have had breast cancer - Breast Cancer Mother - Diabetes Maternal Grandmother Patient Allergies ALLERGIES Allergen Reactions - Keflex [Cephalexin] Anaphylaxis - Adderall [Dextroamp* Other: See Comments elevated blood pressure - Seasonal Allergies Other: See Comments Cats, Molds - Tape [Adhesive Tape* Rash - Zoloft [Sertraline * Other: See Comments Made her feel horrible - Penicillins Rash Current Medications Current Outpatient Prescriptions on File Prior to Visit: lisdexamfetamine (VYVANSE) 20 mg capsule Take 1 capsule by mouth once daily for 30 days. esomeprazole (NEXIUM) 40 mg capsule Take 1 capsule by mouth once daily. albuterol HFA (PROAIR HFA) 90 mcg/actuation inhaler Inhale 2 Puffs as instructed every 4 hours as needed. fluticasone (FLOVENT HFA) 110 mcg/actuation inhaler Inhale 1 Puff as instructed twice daily. omega-3 fatty acids 1,000 mg cap Take 2 capsules by mouth once daily. COMPOUNDED PRESCRIPTION CPAP with supplies at 9 CM H2O with humidification.Dx: G47.33 COMPOUNDED PRESCRIPTION CPAP with supplies at 9 CM H2O with humidification.Dx: G47.33 COMPOUNDED PRESCRIPTION CPAP with supplies at 9 CM H2O with humidification.Dx: G47.33 ALLERGY RELIEF-D,FEXOFENADINE, 60-120 mg per tablet Take 1 tablet by mouth once daily. fexofenadine (DIANE) 180 mg tablet Take 180 mg by mouth once daily. No current facility-administered medications on file prior to visit. 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 Social History Main Topics Smoking status: Former Smoker Packs/day: 0.20 Years: 10.00 Types: Cigarettes Quit date: 04/22/2012 Smokeless tobacco: Never Used Alcohol use: Yes Comment: special occasions Drug use: No Sexual activity: Yes Partners with: Male Other Topics Concern Service No Blood Transfusions No Caffeine Concern No Comment:uses caffeine Occupational Exposure No Hobby Hazards No Sleep Concern Yes Stress Concern Yes Weight Concern Yes Comment:has gained about 15 pounds Special Diet No Back Care No Exercise Yes Comment:4 times a week-aerobic and strength training Bike Helmet No Seat Belt Yes Self-Exams Yes Social History Narrative and lives with spouse and children Review of Symptoms REVIEW OF SYSTEMS See hpi EXAM: BP 128/92 (BP Site: Left Arm, BP Position: Sitting, BP Cuff Size: Large Adult) Pulse 84 Resp 14 Wt 103.9 kg (229 lb) LMP 01/26/2011 BMI 36.80 kg/m? General Appearance: Well appearing, alert, in no acute distress, well-hydrated, well nourished.. Lungs: Lungs clear to auscultation. No wheezing, rhonchi, rales. Heart: RRR without murmur, gallop, or rubs. No ectopy. PSYCH: Appearance: well dressed well groomed, cooperative and pleasant Behavior: good eye contact Speech: fluent and coherent Mood: happy Affect: appropriate Perceptions: none Thought process: goal directed Thought Content: normal Intelligence level: normal Insight: good Judgment: good Health Maintenance List DTAP,TDAP,TD(1 - Tdap) due on 11/10/1994 PAP EVERY 5 YEARS due on 11/10/2005 HPV EVERY 5 YEARS due on 11/10/2005 MAMMOGRAM due on 2015 INFLUENZA Completed ASSESSMENT/PLAN: 1. Attention deficit hyperactivity disorder (ADHD), predominantly inattentive type - ICD9: 314.00, ICD10: F90.0 (primary diagnosis) Increase to 30mg of vyvanse daily - LISDEXAMFETAMINE 30 MG CAPSULE 2. Mild persistent asthma without complication - ICD9: 493.90, ICD10: J45.30 Worse with seasonal allergies - Avoidance of triggers recommended - ALBUTEROL SULFATE HFA 90 MCG/ACTUATION AEROSOL INHALER 3. Seasonal allergic rhinitis, unspecified trigger - ICD9: 477.9, ICD10: J30.2 Continue current therapy Follow up in 4 months for routine OV/med check. OARRS website checked and validated. All prescriptions have been APPROPRIATELY filled. No suspicious activity was identified.- 09/27/2017 by AMANDA STEVEN PA-C The following approved medication requests have been transmitted electronically. Signed Prescriptions Disp Refills lisdexamfetamine (VYVANSE) 30 mg capsule 30 capsule 0 Sig: Take 1 capsule by mouth once daily for 30 days. LESLIE Class: C-II HEIDY: No albuterol HFA (PROAIR HFA) 90 mcg/actuation inhaler 1 Inhaler 2 Sig: Inhale 2 Puffs as instructed every 4 hours as needed. HEIDY: No JANNETH GREGORY PA-C Referring Provider: SELF [[id number]] Allergies As of Date: 09/27/2017 Noted Allergy Reaction KEFLEX (CEPHALEXIN) 04/29/2010 10 - Anaphylaxis ADDERALL (DEXTROAMPHETAMINE-AMPHE*07/30/2017 14 - Other: See Comments Comments: elevated blood pressure SEASONAL ALLERGIES 05/23/2012 14 - Other: See Comments Comments: Cats, Molds TAPE (ADHESIVE TAPE (ROSINS)) 05/16/2012 2 - Rash ZOLOFT (SERTRALINE HCL) 06/12/2014 14 - Other: See Comments Comments: Made her feel horrible PENICILLINS 04/29/2010 2 - Rash Date Reviewed: 09/27/2017 Reviewed by: Monica Castro Ma - Fully Assessed Reason for Visit: Recheck [92] Cmt: patient is here for follow up on medication Primary Visit Diagnosis:Attention deficit hyperactivity disorder (ADHD), predominantly inattentive type [F90.0] Other Visit Diagnoses:Mild persistent asthma without complication [J45.30] Seasonal allergic rhinitis, unspecified trigger [J30.2] Order(s):lisdexamfetamine (VYVANSE) 30 mg capsuleTake 1 capsule by mouth once daily for 30 days.Disp: 30 capsuleRfl: 0 albuterol HFA (PROAIR HFA) 90 mcg/actuation inhalerInhale 2 Puffs as instructed every 4 hours as needed.Disp: 1 InhalerRfl: 2 Prescriptions as of 09/27/2017 Sig: LISDEXAMFETAMINE 30 MG CAPSULE Take 1 capsule by mouth once * ALBUTEROL SULFATE HFA 90 MCG/* Inhale 2 Puffs as instructed * ESOMEPRAZOLE MAGNESIUM 40 MG * Take 1 capsule by mouth once * FLUTICASONE 110 MCG/ACTUATION* Inhale 1 Puff as instructed t* OMEGA-3 FATTY ACIDS 1,000 MG * Take 2 capsules by mouth once* COMPOUNDED PRESCRIPTION CPAP with supplies at 9 CM H2* COMPOUNDED PRESCRIPTION CPAP with supplies at 9 CM H2* COMPOUNDED PRESCRIPTION CPAP with supplies at 9 CM H2* ALLERGY RELIEF-D (FEXOFENADIN* Take 1 tablet by mouth once d* FEXOFENADINE 180 MG TABLET Take 180 mg by mouth once anisa* Problem List As Of Date 09/27/2017 Noted Resolved Allergic rhinitis [J30.9] INVALID FOR* Priority: B Mild persistent asthma [J45.30] INVALID FOR* Priority: A More... Dyslipidemia [E78.5] INVALID FOR* Priority: A Tic douloureux [G50.0] Priority: A More... Multiple lung nodules [R91.8] Priority: B More... More... Routine gynecological examination [Z01.419] INVALID FOR* Priority: D More... Incisional hernia without mention of obstructio*INVALID FOR* ADHD (attention deficit hyperactivity disorder)*INVALID FOR* Priority: A More... Hyperopia with astigmatism - Both Eyes [H52.00,*INVALID FOR* SOLANGE (obstructive sleep apnea) AHI 17.1 [G47.33] INVALID FOR* Priority: B More... Gastroesophageal reflux disease without esophag*INVALID FOR* Priority: A More... Acquired hypothyroidism [E03.9] INVALID FOR* Priority: A Current use of proton pump inhibitor [Z79.899] INVALID FOR* Prescriptions ordered this encounter Disp Refills Start End LISDEXAMFETAMINE 30 MG CAPSULE 30 c* 0 09/27/2017 10/27/2017 Class: Print RX Route: ORAL Sig: Take 1 capsule by mouth once daily for 30 days. ALBUTEROL SULFATE HFA 90 MCG/ACTUATI* 1 In* 2 09/27/2017 Route: INHALATION Sig: Inhale 2 Puffs as instructed every 4 hours as needed. Medications Discontinued During This Encounter lisdexamfetamine (VYVANSE) 20 mg cap* 30 c* 0 08/28/2017 09/27/2017 Class: Print RX Route: ORAL Sig: Take 1 capsule by mouth once daily for 30 days. Disc: Reason for discontinue is not on file. albuterol HFA (PROAIR HFA) 90 mcg/ac* 1 In* 2 07/30/2017 09/27/2017 Route: INHALATION Sig: Inhale 2 Puffs as instructed every 4 hours as needed. Disc: Reason for discontinue is not on file. Disposition: Return in about 4 months (around 01/28/2018) for med check routine. Follow-up and Disposition History Recorded Encounter Status:Closed by JANNETH GONZALES on 09/27/17 CNOV Observed: 08/28/2017 Status: COMPLETED Source: [place] 2:20 PM [facility] REPOSITORY Office Visit ([facility]) JOÃO CASTILLO ([id number]) 1975 F Date Time Provider Department 08/28/17 2:20 PM JANNETH GREGORY) [facility] During your visit today, we recorded the following information about you: Temperature Pulse Respiration Blood pressure 98.9 degrees 84/minute 14/minute 128/84 Weight 104.8 kg ERWIN STEVEN 08/28/2017 2:46 PM Signed Chief Complaint Patient presents with: Recheck HPI João Castillo is a 41 year old female who presents here today for Recheck on start Vyvanse. Patient has noticed improvement with the Vyvanse. Only SE that she has noted is sweating more and some nausea that is improved when she takes it with food. She states that the medicine does seem to wear off around 4pm but she would like to try the 20mg dose for 1 more month to see how she responds. Denies h/a, insomnia, or appetite changes. Was treated for sinusitis at last visit as well. Took bactrim and thought she had improvement but with current weather changes she is having more difficulty. No Fevers. Sinus drainage is green Ear ache, cough productive with sinus drainage. Denies ST. Past medical history, appointments, medications, allergies reviewed. Previous Medical History PAST MEDICAL HISTORY Diagnosis Date - Asthma - Attention deficit hyperactivity disorder, predominantly inattentive type - Carpal tunnel syndrome - Environmental allergies - GERD (gastroesophageal reflux disease) on ppi - Hyperlipidemia - Hypothyroid - Multiple lung nodules followed by pulmonology - Tardive dyskinesia Ativan - Tic douloureux myoclonus jerk, more with stress, caffeine Previous Surgical History PAST SURGICAL HISTORY Procedure Laterality Date - HYSTERECTOMY HX May 2012 lap:fibroids, no cancer, uterus and cervix only - KNEE RIGHT OP SURGERY arthroscopy - REMOVAL GALLBLADDER lap constantino - REPAIR INCISIONAL HERNIA 03/30/2014 - RHINOPLASTY 2004 deviated septum - TONSILLECTOMY HX Family History FAMILY HISTORY Problem Relation Age of Onset - Hypertension Mother - colorectal cancer [Other] [OTHER] Other Aunt - Hypertension Maternal Grandmother - Stroke Maternal Grandmother - Hypertension Maternal Grandfather - Diabetes Maternal Grandfather - Glaucoma Maternal Grandfather - Breast Cancer Maternal Aunt 6 sisters have had breast cancer - Breast Cancer Mother - Diabetes Maternal Grandmother Patient Allergies ALLERGIES Allergen Reactions - Keflex [Cephalexin] Anaphylaxis - Adderall [Dextroamp* Other: See Comments elevated blood pressure - Seasonal Allergies Other: See Comments Cats, Molds - Tape [Adhesive Tape* Rash - Zoloft [Sertraline * Other: See Comments Made her feel ANDquot;horribleANDquot; - Penicillins Rash Current Medications Current Outpatient Prescriptions on File Prior to Visit: esomeprazole (NEXIUM) 40 mg capsule Take 1 capsule by mouth once daily. albuterol HFA (PROAIR HFA) 90 mcg/actuation inhaler Inhale 2 Puffs as instructed every 4 hours as needed. lisdexamfetamine (VYVANSE) 20 mg capsule Take 1 capsule by mouth once daily for 30 days. omega-3 fatty acids 1,000 mg cap Take 2 capsules by mouth once daily. COMPOUNDED PRESCRIPTION CPAP with supplies at 9 CM H2O with humidification.Dx: G47.33 COMPOUNDED PRESCRIPTION CPAP with supplies at 9 CM H2O with humidification.Dx: G47.33 COMPOUNDED PRESCRIPTION CPAP with supplies at 9 CM H2O with humidification.Dx: G47.33 ALLERGY RELIEF-D,FEXOFENADINE, 60-120 mg per tablet Take 1 tablet by mouth once daily. fexofenadine (DIANE) 180 mg tablet Take 180 mg by mouth once daily. fluticasone (FLOVENT HFA) 110 mcg/actuation inhaler Inhale 1 Puff as instructed twice daily. No current facility-administered medications on file prior to visit. 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 Social History Main Topics Smoking status: Former Smoker Packs/day: 0.20 Years: 10.00 Types: Cigarettes Quit date: 04/22/2012 Smokeless status: Never Used Alcohol use: Yes Comment: special occasions Drug use: No Sexual activity: Yes Partners with: Male Other Topics Concern Service No Blood Transfusions No Caffeine Concern No Comment:uses caffeine Occupational Exposure No Hobby Hazards No Sleep Concern Yes Stress Concern Yes Weight Concern Yes Comment:has gained about 15 pounds Special Diet No Back Care No Exercise Yes Comment:4 times a week-aerobic and strength training Bike Helmet No Seat Belt Yes Self-Exams Yes Social History Narrative and lives with spouse and children Review of Symptoms REVIEW OF SYSTEMS GENERAL: No weight loss, malaise or fevers HEENT: SEE HPI RESPIRATORY: Negative for hemoptysis, wheezing, COPD, dyspnea or shortness of breath CARDIOVASCULAR: Negative for chest pain, leg swelling, CHF or palpitations PSYCH: Negative for sleep disturbance, mood disorder and recent psychosocial stressors, See HPI NEURO: No history of headaches, syncope, paralysis, seizures or tremors EXAM: BP 128/84 (BP Site: Left Arm, BP Position: Sitting, BP Cuff Size: Large Adult) Pulse 84 Temp 37.2 ?C (98.9 ?F) (Tympanic) Resp 14 Wt 104.8 kg (231 lb) LMP 01/26/2011 BMI 37.12 kg/m2 General Appearance: Well appearing, alert, in no acute distress, well-hydrated, well nourished.. Ears: External ears normal, canals clear, TMs retracted. Nose/Sinuses: Positive findings: mucosa erythematous and swollen, sinus pressure to palp. Oropharynx: Lips, mucosa, and tongue normal, teeth and gums normal, oropharynx normal. Lungs: Lungs clear to auscultation. No wheezing, rhonchi, rales. Heart: RRR without murmur, gallop, or rubs. No ectopy. Health Maintenance List PAP EVERY 5 YEARS due on 11/10/2005 HPV EVERY 5 YEARS due on 11/10/2005 MAMMOGRAM due on 2015 TETANUS due on 05/14/2018 INFLUENZA Completed Data reviewed n/a ASSESSMENT/PLAN: 1. Attention deficit hyperactivity disorder (ADHD), predominantly inattentive type - ICD9: 314.00, ICD10: F90.0 (primary diagnosis) Continue Vyvanse 20mg Consider increase to 30mg - LISDEXAMFETAMINE 20 MG CAPSULE 2. Bacterial sinusitis - ICD9: 473.9, 041.9, ICD10: J32.9, B96.89 - Start doxy 3. GERD with esophagitis - ICD9: 530.11, ICD10: K21.0 - Stable 4. SOLANGE (obstructive sleep apnea) AHI 17.1 - ICD9: 327.23, ICD10: G47.33 Stable Follow up in 1 month for recheck or sooner as needed ERWIN STEVEN Referring Provider: GWYN SMALL [[id number]] Allergies As of Date: 08/28/2017 Noted Allergy Reaction KEFLEX (CEPHALEXIN) 04/29/2010 10 - Anaphylaxis ADDERALL (DEXTROAMPHETAMINE-AMPHE*07/30/2017 14 - Other: See Comments Comments: elevated blood pressure SEASONAL ALLERGIES 05/23/2012 14 - Other: See Comments Comments: Cats, Molds TAPE (ADHESIVE TAPE (ROSINS)) 05/16/2012 2 - Rash ZOLOFT (SERTRALINE HCL) 06/12/2014 14 - Other: See Comments Comments: Made her feel horrible PENICILLINS 04/29/2010 2 - Rash Date Reviewed: 08/28/2017 Reviewed by: Janneth Gregory (Pa) - Fully Assessed Reason for Visit: Recheck [92] Primary Visit Diagnosis:Attention deficit hyperactivity disorder (ADHD), predominantly inattentive type [F90.0] Other Visit Diagnoses:Bacterial sinusitis [J32.9, B96.89] GERD with esophagitis [K21.0] SOLANGE (obstructive sleep apnea) AHI 17.1 [G47.33] Order(s):lisdexamfetamine (VYVANSE) 20 mg capsuleTake 1 capsule by mouth once daily for 30 days.Disp: 30 capsuleRfl: 0 doxycycline monohydrate 100 mg tabletTake 1 tablet by mouth twice daily for 10 days.Disp: 20 tabletRfl: 0 Prescriptions as of 08/28/2017 Sig: LISDEXAMFETAMINE 20 MG CAPSULE Take 1 capsule by mouth once * ESOMEPRAZOLE MAGNESIUM 40 MG * Take 1 capsule by mouth once * ALBUTEROL SULFATE HFA 90 MCG/* Inhale 2 Puffs as instructed * OMEGA-3 FATTY ACIDS 1,000 MG * Take 2 capsules by mouth once* COMPOUNDED PRESCRIPTION CPAP with supplies at 9 CM H2* COMPOUNDED PRESCRIPTION CPAP with supplies at 9 CM H2* COMPOUNDED PRESCRIPTION CPAP with supplies at 9 CM H2* ALLERGY RELIEF-D (FEXOFENADIN* Take 1 tablet by mouth once d* FEXOFENADINE 180 MG TABLET Take 180 mg by mouth once anisa* DOXYCYCLINE MONOHYDRATE 100 M* Take 1 tablet by mouth twice * FLUTICASONE 110 MCG/ACTUATION* Inhale 1 Puff as instructed t* Problem List As Of Date 08/28/2017 Noted Resolved Allergic rhinitis, cause unspecified [J30.9] INVALID FOR* Priority: B Mild persistent asthma [J45.30] INVALID FOR* Priority: A More... Dyslipidemia [E78.5] INVALID FOR* Priority: A Tic douloureux [G50.0] Priority: A More... Multiple lung nodules [R91.8] Priority: B More... More... Routine gynecological examination [Z01.419] INVALID FOR* Priority: D More... Incisional hernia without mention of obstructio*INVALID FOR* ADHD (attention deficit hyperactivity disorder)*INVALID FOR* Priority: A More... Hyperopia with astigmatism - Both Eyes [H52.00,*INVALID FOR* SOLANGE (obstructive sleep apnea) AHI 17.1 [G47.33] INVALID FOR* Priority: B More... Gastroesophageal reflux disease without esophag*INVALID FOR* Priority: A More... Acquired hypothyroidism [E03.9] INVALID FOR* Priority: A Current use of proton pump inhibitor [Z79.899] INVALID FOR* Prescriptions ordered this encounter Disp Refills Start End LISDEXAMFETAMINE 20 MG CAPSULE 30 c* 0 08/28/2017 09/27/2017 Class: Print RX Route: ORAL Sig: Take 1 capsule by mouth once daily for 30 days. DOXYCYCLINE MONOHYDRATE 100 MG TABLET 20 t* 0 08/28/2017 09/07/2017 Route: ORAL Sig: Take 1 tablet by mouth twice daily for 10 days. Medications Discontinued During This Encounter lisdexamfetamine (VYVANSE) 20 mg cap* 30 c* 0 07/30/2017 08/28/2017 Class: Print RX Route: ORAL Sig: Take 1 capsule by mouth once daily for 30 days. Disc: Reason for discontinue is not on file. Disposition: Return in about 4 weeks (around 09/25/2017) for Recheck. Follow-up and Disposition History Recorded Encounter Status:Closed by JANNETH GREGORY on 08/28/17 PROGRESS Observed: 08/28/2017 Status: COMPLETED Source: [place] 2:00 PM [facility] REPOSITORY HNO ID: [id number] Author: Janneth Gregory (Pa) Service: (none) Author Type: Physician Yard Hostler Type: Progress Notes Filed: 08/28/2017 2:46 PM Note Text: Chief Complaint Patient presents with: Recheck HPI João Castillo is a 41 year old female who presents here today for Recheck on start Vyvanse. Patient has noticed improvement with the Vyvanse. Only SE that she has noted is sweating more and some nausea that is improved when she takes it with food. She states that the medicine does seem to wear off around 4pm but she would like to try the 20mg dose for 1 more month to see how she responds. Denies h/a, insomnia, or appetite changes. Was treated for sinusitis at last visit as well. Took bactrim and thought she had improvement but with current weather changes she is having more difficulty. No Fevers. Sinus drainage is green Ear ache, cough productive with sinus drainage. Denies ST. Past medical history, appointments, medications, allergies reviewed. Previous Medical History PAST MEDICAL HISTORY Diagnosis Date - Asthma - Attention deficit hyperactivity disorder, predominantly inattentive type - Carpal tunnel syndrome - Environmental allergies - GERD (gastroesophageal reflux disease) on ppi - Hyperlipidemia - Hypothyroid - Multiple lung nodules followed by pulmonology - Tardive dyskinesia Ativan - Tic douloureux myoclonus jerk, more with stress, caffeine Previous Surgical History PAST SURGICAL HISTORY Procedure Laterality Date - HYSTERECTOMY HX May 2012 lap:fibroids, no cancer, uterus and cervix only - KNEE RIGHT OP SURGERY arthroscopy - REMOVAL GALLBLADDER lap constantino - REPAIR INCISIONAL HERNIA 03/30/2014 - RHINOPLASTY 2004 deviated septum - TONSILLECTOMY HX Family History FAMILY HISTORY Problem Relation Age of Onset - Hypertension Mother - colorectal cancer [Other] [OTHER] Other Aunt - Hypertension Maternal Grandmother - Stroke Maternal Grandmother - Hypertension Maternal Grandfather - Diabetes Maternal Grandfather - Glaucoma Maternal Grandfather - Breast Cancer Maternal Aunt 6 sisters have had breast cancer - Breast Cancer Mother - Diabetes Maternal Grandmother Patient Allergies ALLERGIES Allergen Reactions - Keflex [Cephalexin] Anaphylaxis - Adderall [Dextroamp* Other: See Comments elevated blood pressure - Seasonal Allergies Other: See Comments Cats, Molds - Tape [Adhesive Tape* Rash - Zoloft [Sertraline * Other: See Comments Made her feel horrible - Penicillins Rash Current Medications Current Outpatient Prescriptions on File Prior to Visit: esomeprazole (NEXIUM) 40 mg capsule Take 1 capsule by mouth once daily. albuterol HFA (PROAIR HFA) 90 mcg/actuation inhaler Inhale 2 Puffs as instructed every 4 hours as needed. lisdexamfetamine (VYVANSE) 20 mg capsule Take 1 capsule by mouth once daily for 30 days. omega-3 fatty acids 1,000 mg cap Take 2 capsules by mouth once daily. COMPOUNDED PRESCRIPTION CPAP with supplies at 9 CM H2O with humidification.Dx: G47.33 COMPOUNDED PRESCRIPTION CPAP with supplies at 9 CM H2O with humidification.Dx: G47.33 COMPOUNDED PRESCRIPTION CPAP with supplies at 9 CM H2O with humidification.Dx: G47.33 ALLERGY RELIEF-D,FEXOFENADINE, 60-120 mg per tablet Take 1 tablet by mouth once daily. fexofenadine (DIANE) 180 mg tablet Take 180 mg by mouth once daily. fluticasone (FLOVENT HFA) 110 mcg/actuation inhaler Inhale 1 Puff as instructed twice daily. No current facility-administered medications on file prior to visit. 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 Social History Main Topics Smoking status: Former Smoker Packs/day: 0.20 Years: 10.00 Types: Cigarettes Quit date: 04/22/2012 Smokeless status: Never Used Alcohol use: Yes Comment: special occasions Drug use: No Sexual activity: Yes Partners with: Male Other Topics Concern Service No Blood Transfusions No Caffeine Concern No Comment:uses caffeine Occupational Exposure No Hobby Hazards No Sleep Concern Yes Stress Concern Yes Weight Concern Yes Comment:has gained about 15 pounds Special Diet No Back Care No Exercise Yes Comment:4 times a week-aerobic and strength training Bike Helmet No Seat Belt Yes Self-Exams Yes Social History Narrative and lives with spouse and children Review of Symptoms REVIEW OF SYSTEMS GENERAL: No weight loss, malaise or fevers HEENT: SEE HPI RESPIRATORY: Negative for hemoptysis, wheezing, COPD, dyspnea or shortness of breath CARDIOVASCULAR: Negative for chest pain, leg swelling, CHF or palpitations PSYCH: Negative for sleep disturbance, mood disorder and recent psychosocial stressors, See HPI NEURO: No history of headaches, syncope, paralysis, seizures or tremors EXAM: BP 128/84 (BP Site: Left Arm, BP Position: Sitting, BP Cuff Size: Large Adult) Pulse 84 Temp 37.2 ?C (98.9 ?F) (Tympanic) Resp 14 Wt 104.8 kg (231 lb) LMP 01/26/2011 BMI 37.12 kg/m2 General Appearance: Well appearing, alert, in no acute distress, well-hydrated, well nourished.. Ears: External ears normal, canals clear, TMs retracted. Nose/Sinuses: Positive findings: mucosa erythematous and swollen, sinus pressure to palp. Oropharynx: Lips, mucosa, and tongue normal, teeth and gums normal, oropharynx normal. Lungs: Lungs clear to auscultation. No wheezing, rhonchi, rales. Heart: RRR without murmur, gallop, or rubs. No ectopy. Health Maintenance List PAP EVERY 5 YEARS due on 11/10/2005 HPV EVERY 5 YEARS due on 11/10/2005 MAMMOGRAM due on 2015 TETANUS due on 05/14/2018 INFLUENZA Completed Data reviewed n/a ASSESSMENT/PLAN: 1. Attention deficit hyperactivity disorder (ADHD), predominantly inattentive type - ICD9: 314.00, ICD10: F90.0 (primary diagnosis) Continue Vyvanse 20mg Consider increase to 30mg - LISDEXAMFETAMINE 20 MG CAPSULE 2. Bacterial sinusitis - ICD9: 473.9, 041.9, ICD10: J32.9, B96.89 - Start doxy 3. GERD with esophagitis - ICD9: 530.11, ICD10: K21.0 - Stable 4. SOLANGE (obstructive sleep apnea) AHI 17.1 - ICD9: 327.23, ICD10: G47.33 Stable Follow up in 1 month for recheck or sooner as needed ERWIN STEVEN URINALYSIS WITH Collected: 07/30/2017 Status: F Source: [facility] 9:21 AM [facility] REPOSITORY TYPE CODE TESTS RESULT OUT OF RANGE REFERENCE UNITS LAB UCOL Yellow Color Yellow LAB [facility] Clear Clarity Abnormal Cloudy Alert LAB UGLUC Negative mg/dL Glucose, Urine Negative LAB UBIL Negative Bilirubin, Urine Negative LAB UKET Negative Ketones, Urine Negative LAB USPG 1.005-1.030 Specific [place], Ur 1.020 LAB UHGB Negative Hemoglobin/Blood, Negative Ur LAB UPH 4.5-8.0 pH 5.0 LAB UPROT Negative mg/dL Protein, Urine Negative LAB UUROB Normal Urobilinogen Normal LAB UNITR Negative Nitrites Negative LAB ULKEST Negative Leukest Negative LAB UCOM Comments SEE COMMENT Result Comment: N/A LAB UMCOM Urine SEE Jez Comment COMMENT Result Comment: N/A LAB UWBC 0-5 /HPF WBC 0-5 LAB URBC 0-3 /HPF RBC 0-3 LAB UEPI /HPF Epithelial SEE Cells COMMENT Result Comment: Few Squamous Epithelial Cells Performed By: #### UAWMIC #### [facility] [address] [place], [place] [address] TOXICOLOGY SCREEN,UR Collected: 07/30/2017 Status: F Source: [place] 9:20 AM [facility] REPOSITORY TYPE CODE TESTS RESULT OUT OF REFERENCE UNITS RANGE LAB UPCP2 Negative Negative Phencyclidin e, Urine Result Comment: Cutoff threshold at 25 ng/mL. LAB UBENZ2 Negative Benzodiazepines, Ur Negative Result Comment: Cutoff threshold at 200 ng/mL. LAB UCOC2 Negative Cocaine, Negative Urine Result Comment: Cutoff threshold at 300 ng/mL. LAB UAMPH2 Negative Amphetamines, Urine Negative Result Comment: Cutoff threshold at 1000 ng/mL. LAB UTHC2 Negative Cannabinoids, Urine Negative Result Comment: Cutoff threshold at 50 ng/mL. LAB UOPI2 Negative Opiates, Negative Urine Result Comment: Cutoff threshold at 300 ng/mL. LAB UBARB2 Negative Barbiturates, Urine Negative Result Comment: Cutoff threshold at 200 ng/mL. LAB UETOH <11 mg/dL <11 Ethanol, Urine LAB UOXYC Negative Oxycodone, Negative Urine Result Comment: Cutoff threshold at 100 ng/mL. Comment: Immunoassay screen only. Cross reactivity with other substances can occur with immunoassay screening. Detection of any drug(s) in this urine toxicology panel is presumptive only. These tests are for med ical purposes only and should not be used for compliance monitoring, legal, or forensic use. In clinical settings, confirmatory testing is at the practitioner's discretion [1]. If clinically indicated, confirmation by high specificity, quantitative methodology may be requested on the same speci men through Client Services ([phone]) if contacted within 48 hours of initial testing. [1]Substance Abuse and Mental Health Services Administration (2012). Clinical Drug Testing in Primary Care Technical Assistance Publication Series 32. Department of Health and Human Services, [place], p.10. These tests were developed and their performance characteristics determined by [facility]'s [facility] [place] ([facility]). They have not been cleared or a pproved by the FDA. [facility] is regulated under CLIA as qualified to perform high complexity testing. These tests are used for clinical purposes. They should not be regarded as investigational or for research. Performed By: #### UTOX2, UQNTPP #### [facility] [address] [place], [place] [address] QUANT PAIN PANEL, Collected: 07/30/2017 Status: F Source: [facility] 9:20 AM [facility] REPOSITORY TYPE CODE TESTS RESULT OUT OF REFERENCE UNITS RANGE LAB UQCANN <16 ng/mL <16 Cannabinoid, Urine Result Comment: Tetrahydrocannabinol carboxylic acid (THCA) is a metabolite of wlbgl-5-odumurdolwrwzuiyahgm which is the main active component of marijuana. LAB UQBNZL <24 ng/mL Benzoylecognine, Ur <24 Result Comment: Benzoylecognine is a metabolite of cocaine. LAB UQACMR <5 ng/mL 6-Acetylmorphine, Ur <5 Result Comment: 6-SOLITARIO (6-monoacetylmorphine, also known as 6-acetylmorphine) is a unique metabolite of heroin. Presence of 6-SOLITARIO indicates use of heroin. 6-SOLITARIO is further metabolized to morphine and absence of 6-SOLITARIO does not rule out the use of heroin. LAB UQAMPH <5 ng/mL Amphetamine, Urine <5 LAB UQMAMP <8 ng/mL Methamphetamine, Ur <8 LAB UQBUPR <20 ng/mL Buprenorphine, Ur <20 LAB UQNBUP <20 ng/mL Norbuprenorphine, Ur <20 Result Comment: Norbuprenorphine is the primary active metabolite of buprenorphine. LAB UQMTHD <16 ng/mL Methadone, Urine <16 LAB UQEDDP <6 ng/mL EDDP, Urine <6 Result Comment: EDDP is a metabolite of methadone. LAB UQTRAM <25 ng/mL Tramadol, Urine <25 LAB UQDTRM <20 ng/mL Desmethyltramadol <20 ,Ur Result Comment: Desmethyltramadol is a metabolite of tramadol. LAB UQFNTL <6 ng/mL Fentanyl, Urine <6 LAB UQNFTL <6 ng/mL Norfentanyl, Urine <6 Result Comment: Norfentanyl is a metabolite of fentanyl. LAB UQCODE <11 ng/mL Codeine, Urine <11 LAB UQMORP <10 ng/mL Morphine, Urine <10 Result Comment: Morphine is a metabolite of codeine and heroin. LAB UQDCDN <5 ng/mL Dihydrocodeine, Ur <5 LAB UQHCOD <8 ng/mL Hydrocodone, Urine <8 Result Comment: Hydrocodone is a metabolite of dihydrocodeine. LAB UQOXYC <5 ng/mL Oxycodone, Urine <5 LAB UQHMOR <5 ng/mL Hydromorphone, Ur <5 Result Comment: Hydromorphone is a metabolite of hydrocodone. LAB UQOXYM <5 ng/mL Oxymorphone, Urine <5 Result Comment: Oxymorphone is a metabolite of oxycodone. LAB UQCREA >19 mg/dL Creatinine, >50 Urine LAB UQPH 4-10 pH, Urine 4-10 LAB UQSPGR 1.005-1.020 Specific >1.020 [place],Ur LAB UQOXID Negative Oxidants, Negative Urine LAB UQSPQ Specimen Specimen Quality quality results within acceptable limits. LAB UQNOTE Note This test is for Medical use only. Result Comment: This test was developed and its performance characteristics determined by [facility]'s [facility] [place] ([facility]). It has not been cleared or approved by the FDA. [facility] is regulated under CLIA as qualified to perform high-complexity testing. This test is used for clinical purposes. It should not be regarded as investigational or for research. Performed By: #### UTOX2, UQNTPP #### [facility] [address] [address] COMP METABOLIC PANEL Collected: 07/30/2017 Status: F Source: [place] 8:58 AM [facility] REPOSITORY TYPE CODE TESTS RESULT OUT OF REFERENCE UNITS RANGE LAB TP 6.3-8.0 g/dL Protein, Total 6.8 LAB ALB 3.9-4.9 g/dL Albumin 4.4 LAB CA 8.5-10.2 mg/dL Calcium, Total 9.2 LAB TBIL 0.2-1.3 mg/dL Bilirubin, Total 0.3 LAB ALKP 32-117 U/L Alkaline Phosphatase 64 LAB AST 13-35 U/L AST 19 LAB GLU 74-99 mg/dL Glucose 91 Result Comment: The [place] [employer] (ADA) provides guidance for cutoff values for fasting glucose and random glucose. The ADA defines fasting as no caloric intake for at least 8 hours. Fas ting plasma glucose results between 100 to 125 mg/dL indicate increased risk for diabetes (prediabetes). Fasting plasma glucose results greater than or equal to 126 mg/dL meet the criteria for diagnosis of diabetes. In the absence of unequivocal hyperglycemia, results should be confirmed by repeat testing. In a patient with classic symptoms of hyperglycemia or hyperglycemic crisis, random plasma glucose results greater than or equal to 200 mg/dL meet the criteria for diagnosis of diabetes. Reference: Standards of Medical Care in Diabetes 2016, [place] [employer] Association. Diabetes Care. 2016.39(Suppl 1). LAB BUN 7-21 mg/dL BUN 12 LAB CRET 0.58-0.96 mg/dL Creatinine 0.79 LAB NA 136-144 mmol/L Sodium 140 LAB K 3.7-5.1 mmol/L Potassium 4.2 LAB CL 97-105 mmol/L Chloride 100 LAB CO2 22-30 mmol/L CO2 27 LAB AGAP 9-18 mmol/L Anion Gap 13 LAB ALT 7-38 U/L ALT 24 LAB GFRAA eGFR- Amer. >60 LAB GFRNAA . eGFR-All Other Races >60 Result Comment: eGFR (Estimated GFR) Units of measure: mL/min/1.73 meters squared eGFR is derived from the reexpressed MDRD Study equation using the following parameters: serum creatinine, age, gender and race. The creatinine assay has been calibrated to be traceable to IDMS. An eGFR <60 mL/min/1.73m2 for >3 months is consistent with chronic kidney disease. Refer to KDOQI guidelines for clinical interpretation. In patients with unstable renal function, e.g. those with acute kidney injury, the eGFR may not accurately reflect actual GFR. Performed By: #### CMP, LIPB, MG1, TSH #### [facility] [address] [address] LIPID PANEL, BASIC Collected: 07/30/2017 Status: F Source: [place] 8:58 AM [facility] REPOSITORY TYPE CODE TESTS RESULT OUT OF REFERENCE UNITS RANGE LAB CHOL <200 mg/dL Cholesterol 193 Result Comment: <200 mg/dL, Desirable 200-239 mg/dL, Borderline high >239 mg/dL, High LAB TRIGLY <150 mg/dL Triglyceride High 281 Result Comment: <150 mg/dL, Normal 150-199 mg/dL, Borderline high 200-499 mg/dL, High >499 mg/dL, Very high LAB HDL >39 mg/dL HDL-Cholesterol Low 35 Result Comment: 40-59 mg/dL, Acceptable >59 mg/dL, High: Negative risk factor for coronary heart disease <40 mg/dL, Low: Positive risk factor for coronary heart disease LAB LDL <100 mg/dL LDL-Cholesterol High 102 Result Comment: <100 mg/dL, Optimal 100-129 mg/dL, Near optimal/above optimal 130-159 mg/dL, Borderline high 160-189 mg/dL, High >189 mg/dL, Very high Secondary prevention optimal LDL Cholesterol levels are recommended to be < 70 mg/dL LAB NONHDL <130 mg/dL Non HDL High Cholesterol 158 Result Comment: <130 mg/dL, Optimal 130-159 mg/dL, Near optimal/above optimal 160-189 mg/dL, Borderline high 190-219 mg/dL, High >219 mg/dL, Very high Secondary prevention optimal non HDL Cholesterol levels are recommended to be < 100 mg/dL LAB FT hrs Fasting Time 12 LAB VLDL <30 mg/dL High VLDL Cholesterol 56 LAB TCHDL <5.10 High TC:HDL Ratio 5.51 LAB LDLHDL <2.54 High LDL:HDL Ratio 2.91 Result Comment: Reference: 1. National Cholesterol Education Program ATP III Guideline At-A-Glance Quick Desk Reference: National Heart, Lung, and Blood [place]. National Institutes of Health. 2001: NIH Publication No. 01-3305. 2. An International Atherosclerosis Society position paper: global recommendations for the management of dyslipidemia: executive summary, Atherosclerosis. 2014: 232(2):410-413. Performed By: #### CMP, LIPB, MG1, TSH #### [facility] [address] [place], [place] [address] MAGNESIUM Collected: 07/30/2017 Status: F Source: [place] 8:58 AM [facility] REPOSITORY TYPE CODE TESTS RESULT OUT OF REFERENCE UNITS RANGE LAB MG 1.7-2.3 mg/dL Magnesium 2.0 Performed By: #### CMP, LIPB, MG1, TSH #### [facility] [address] [place], [place] [address] TSH Collected: 07/30/2017 Status: F Source: [place] 8:58 AM [facility] REPOSITORY TYPE CODE TESTS RESULT OUT OF RANGE REFERENCE UNITS LAB TSH 0.400-5.500 uU/mL TSH 1.430 Result Comment: If the patient is , TSH reference range varies by gestational period: First Trimester 0.100-2.500 uU/mL Second Trimester 0.200-3.000 uU/mL Third Trimester 0.300-3.000 uU/mL References: 1. Noriega, Darcy M, Rizwan EK, et al. Management of Thyroid Dysfunction during and : An Endocrine Society Clinical Practice Guideline. J Clin Endocrinol Metab, 2012:97:6390-2068. 2. [address] [place]. Overview of thyroid disease in . UpToDate. 2016. Accessed on October 29, 2015. Performed By: #### CMP, LIPB, MG1, TSH #### [facility] [address] [address] FREE T3 Collected: 07/30/2017 Status: F Source: [place] 8:58 AM [facility] REPOSITORY TYPE CODE TESTS RESULT OUT OF RANGE REFERENCE UNITS LAB FREET3 2.3-4.1 pg/mL Free T3 3.2 Performed By: #### FREET3, FT4 #### [facility] [address] [address] FREE T4 Collected: 07/30/2017 Status: F Source: [place] 8:58 AM [facility] REPOSITORY TYPE CODE TESTS RESULT OUT OF RANGE REFERENCE UNITS LAB FT4 0.9-1.7 ng/dL Free T4 1.0 Performed By: #### FREET3, FT4 #### [facility] [address] [address] PROGRESS Observed: 07/30/2017 Status: COMPLETED Source: [place] 8:12 AM [facility] REPOSITORY HNO ID: [id number] Author: Gwyn Small Service: (none) Author Type: Physician Type: Progress Notes Filed: 07/30/2017 8:46 PM Note Text: Chief Complaint Patient presents with: Medication Follow-up HPI João Castillo is a 41 year old female who presents here today for Chronic Medical Conditions.. Patient with Hx as reviewed and documented below. 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 With the weather changes has noted harder to breath and wheezing. For the past few weeks has had headaches, congestion, maxillary sinus pain and upper tooth pain. Has been using OTC Prilosec with some help but has GERD 2-3 times a week. Has been needing her rescue inhaler twice a day in the last week. 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 Past medical history, appointments, medications, allergies reviewed. Previous Medical History PAST MEDICAL HISTORY Diagnosis Date - Asthma - Attention deficit hyperactivity disorder, predominantly inattentive type - Carpal tunnel syndrome - Environmental allergies - GERD (gastroesophageal reflux disease) on ppi - Hyperlipidemia - Hypothyroid - Multiple lung nodules followed by pulmonology - Tardive dyskinesia Ativan - Tic douloureux myoclonus jerk, more with stress, caffeine Previous Surgical History PAST SURGICAL HISTORY Procedure Laterality Date - HYSTERECTOMY HX May 2012 lap:fibroids, no cancer, uterus and cervix only - KNEE RIGHT OP SURGERY arthroscopy - REMOVAL GALLBLADDER lap constantino - REPAIR INCISIONAL HERNIA 03/30/2014 - RHINOPLASTY 2004 deviated septum - TONSILLECTOMY HX Family History FAMILY HISTORY Problem Relation Age of Onset - Hypertension Mother - colorectal cancer [Other] [OTHER] Other Aunt - Hypertension Maternal Grandmother - Stroke Maternal Grandmother - Hypertension Maternal Grandfather - Diabetes Maternal Grandfather - Glaucoma Maternal Grandfather - Breast Cancer Maternal Aunt 6 sisters have had breast cancer - Breast Cancer Mother - Diabetes Maternal Grandmother Patient Allergies ALLERGIES Allergen Reactions - Keflex [Cephalexin] Anaphylaxis - Seasonal Allergies Other: See Comments Cats, Molds - Tape [Adhesive Tape* Rash - Zoloft [Sertraline * Other: See Comments Made her feel horrible - Penicillins Rash Current Medications Current Outpatient Prescriptions on File Prior to Visit: COMPOUNDED PRESCRIPTION CPAP with supplies at 9 CM H2O with humidification.Dx: G47.33 COMPOUNDED PRESCRIPTION CPAP with supplies at 9 CM H2O with humidification.Dx: G47.33 COMPOUNDED PRESCRIPTION CPAP with supplies at 9 CM H2O with humidification.Dx: G47.33 albuterol HFA (PROAIR HFA) 90 mcg/actuation inhaler Inhale 2 Puffs as instructed every 4 hours as needed. ALLERGY RELIEF-D,FEXOFENADINE, 60-120 mg per tablet Take 1 tablet by mouth once daily. fluticasone (FLOVENT HFA) 110 mcg/actuation inhaler Inhale 1 Puff as instructed twice daily. fexofenadine (DIANE) 180 mg tablet Take 180 mg by mouth once daily. esomeprazole (NEXIUM) 20 mg capsule Take 1 capsule by mouth once daily. No current facility-administered medications on file prior to visit. 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 Social History Main Topics Smoking status: Former Smoker Packs/day: 0.20 Years: 10.00 Types: Cigarettes Quit date: 04/22/2012 Smokeless status: Never Used Alcohol use: Yes Comment: special occasions Drug use: No Sexual activity: Yes Partners with: Male Other Topics Concern Service No Blood Transfusions No Caffeine Concern No Comment:uses caffeine Occupational Exposure No Hobby Hazards No Sleep Concern Yes Stress Concern Yes Weight Concern Yes Comment:has gained about 15 pounds Special Diet No Back Care No Exercise Yes Comment:4 times a week-aerobic and strength training Bike Helmet No Seat Belt Yes Self-Exams Yes Social History Narrative and lives with spouse and children Review of Symptoms REVIEW OF SYSTEMS GENERAL: No weight loss, malaise or fevers NECK: Negative for lumps, goiter, pain and significant neck swelling RESPIRATORY: Negative for cough, hemoptysis. See HPI CARDIOVASCULAR: Negative for chest pain, hypertension, CHF or palpitations. Has some swelling of the left ankle area as the day goes on. Better in the AM and not every day. GI: No nausea, vomiting, or diarrhea and See HPI NEURO: No history of syncope, paralysis, seizures or tremors See HPI EXAM: BP 122/70 Pulse 70 Temp 36.6 ?C (97.8 ?F) (Tympanic) Resp 16 Wt 103.7 kg (228 lb 9.6 oz) LMP 01/26/2011 BMI 36.74 kg/m2 General Appearance: Well appearing, alert, in no acute distress, well-hydrated, well nourished.. Ears: External ears normal, canals clear. Nose/Sinuses: Nares normal, septum midline, mucosa normal, no drainage. Has maxillary sinus tenderness. Oropharynx: Lips, mucosa, and tongue normal, teeth and gums normal, oropharynx normal. Neck: Supple, no adenopathy; thyroid symmetric, normal size, no bruits. Lungs: Lungs clear to auscultation. No wheezing, rhonchi, rales. Heart: RRR without murmur, gallop, or rubs. No ectopy. Abdomen: Normal abdominal exam, Abdomen soft, non-tender. Bowel sounds normal. No masses, organomegaly. Extremities: No deformities, edema, skin discoloration Peripheral Pulses: Normal. Health Maintenance List PAP EVERY 5 YEARS due on 11/10/2005 HPV EVERY 5 YEARS due on 11/10/2005 MAMMOGRAM due on 2015 TETANUS due on 05/14/2018 INFLUENZA Completed Data reviewed A/P ASSESSMENT/PLAN: 1. Acquired hypothyroidism - ICD9: 244.9, ICD10: E03.9 (primary diagnosis) - Await labs - Always feels tired but TSH has been ok. Will also check Free T4 and free T3. 2. Gastroesophageal reflux disease without esophagitis - ICD9: 530.81, ICD10: K21.9 - Begin treatment with Nexium 40 mg QD - ESOMEPRAZOLE MAGNESIUM 40 MG CAPSULE,DELAYED RELEASE 3. Dyslipidemia - ICD9: 272.4, ICD10: E78.5 - Await labs - Encouraged following a low fat, low cholesterol diet. - Discussed the benefits of regular aerobic exercise and weight loss. - Encouraged following a low carbohydrate, healthy oil intake diet. 4. Mild persistent asthma without complication - ICD9: 493.90, ICD10: J45.30 Mild intermittent Asthma uncontrolled with sinusitis - Continue current meds - Avoidance of triggers recommended - ALBUTEROL SULFATE HFA 90 MCG/ACTUATION AEROSOL INHALER - FLUTICASONE 110 MCG/ACTUATION HFA AEROSOL INHALER 5. Attention deficit hyperactivity disorder (ADHD), predominantly inattentive type - ICD9: 314.00, ICD10: F90.0 Controlled substance agreement signed. - Will start Vyvanse (LISDEXAMFETAMINE) 20 MG CAPSULE once a day - TOX SCREEN ROUT UR - PAIN PANEL, UR QUANT 6. Bacterial sinusitis - ICD9: 473.9, 041.9, ICD10: J32.9, B96.89 - Will begin treatment with: - SULFAMETHOXAZOLE 800 MG-TRIMETHOPRIM 160 MG TABLET 7. Current use of proton pump inhibitor - ICD9: V58.69, ICD10: Z79.899 - Check Mg 8. Encounter for therapeutic drug monitoring - ICD9: V58.83, ICD10: Z51.81 Check - TOX SCREEN ROUT UR - PAIN PANEL, UR QUANT Signed Prescriptions Disp Refills esomeprazole (NEXIUM) 40 mg capsule 90 capsule 1 Sig: Take 1 capsule by mouth once daily. HEIDY: No albuterol HFA (PROAIR HFA) 90 mcg/actuation inhaler 1 Inhaler 2 Sig: Inhale 2 Puffs as instructed every 4 hours as needed. HEIDY: No fluticasone (FLOVENT HFA) 110 mcg/actuation inhaler 1 Inhaler 5 Sig: Inhale 1 Puff as instructed twice daily. HEIDY: No sulfamethoxazole-trimethoprim (BACTRIM DS) 800-160 mg per tablet 20 tablet 0 Sig: Take 1 tablet by mouth twice daily for 10 days. lisdexamfetamine (VYVANSE) 20 mg capsule 30 capsule 0 Sig: Take 1 capsule by mouth once daily for 30 days. LESLIE Class: C-II F/u 4-6 weeks for ADD med f/u Time with patient face to face was 30 min Gwyn Small MD CNOV Observed: 07/30/2017 Status: COMPLETED Source: [place] 8:00 AM [facility] REPOSITORY Office Visit (FAMPWS) JOÃO CASTILLO Brent ([id number]) 1975 F Date Time Provider Department 07/30/17 8:00 AM [facility] During your visit today, we recorded the following information about you: Temperature Pulse Respiration Blood pressure 97.8 degrees 70/minute 16/minute 122/70 Weight 103.7 kg Gwyn Small MD 07/30/2017 8:46 PM Signed Chief Complaint Patient presents with: Medication Follow-up HPI João Castillo is a 41 year old female who presents here today for Chronic Medical Conditions.. Patient with Hx as reviewed and documented below. 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 With the weather changes has noted harder to breath and wheezing. For the past few weeks has had headaches, congestion, maxillary sinus pain and upper tooth pain. Has been using OTC Prilosec with some help but has GERD 2-3 times a week. Has been needing her rescue inhaler twice a day in the last week. 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 Past medical history, appointments, medications, allergies reviewed. Previous Medical History PAST MEDICAL HISTORY Diagnosis Date - Asthma - Attention deficit hyperactivity disorder, predominantly inattentive type - Carpal tunnel syndrome - Environmental allergies - GERD (gastroesophageal reflux disease) on ppi - Hyperlipidemia - Hypothyroid - Multiple lung nodules followed by pulmonology - Tardive dyskinesia Ativan - Tic douloureux myoclonus jerk, more with stress, caffeine Previous Surgical History PAST SURGICAL HISTORY Procedure Laterality Date - HYSTERECTOMY HX May 2012 lap:fibroids, no cancer, uterus and cervix only - KNEE RIGHT OP SURGERY arthroscopy - REMOVAL GALLBLADDER lap constantino - REPAIR INCISIONAL HERNIA 03/30/2014 - RHINOPLASTY 2004 deviated septum - TONSILLECTOMY HX Family History FAMILY HISTORY Problem Relation Age of Onset - Hypertension Mother - colorectal cancer [Other] [OTHER] Other Aunt - Hypertension Maternal Grandmother - Stroke Maternal Grandmother - Hypertension Maternal Grandfather - Diabetes Maternal Grandfather - Glaucoma Maternal Grandfather - Breast Cancer Maternal Aunt 6 sisters have had breast cancer - Breast Cancer Mother - Diabetes Maternal Grandmother Patient Allergies ALLERGIES Allergen Reactions - Keflex [Cephalexin] Anaphylaxis - Seasonal Allergies Other: See Comments Cats, Molds - Tape [Adhesive Tape* Rash - Zoloft [Sertraline * Other: See Comments Made her feel ANDquot;horribleANDquot; - Penicillins Rash Current Medications Current Outpatient Prescriptions on File Prior to Visit: COMPOUNDED PRESCRIPTION CPAP with supplies at 9 CM H2O with humidification.Dx: G47.33 COMPOUNDED PRESCRIPTION CPAP with supplies at 9 CM H2O with humidification.Dx: G47.33 COMPOUNDED PRESCRIPTION CPAP with supplies at 9 CM H2O with humidification.Dx: G47.33 albuterol HFA (PROAIR HFA) 90 mcg/actuation inhaler Inhale 2 Puffs as instructed every 4 hours as needed. ALLERGY RELIEF-D,FEXOFENADINE, 60-120 mg per tablet Take 1 tablet by mouth once daily. fluticasone (FLOVENT HFA) 110 mcg/actuation inhaler Inhale 1 Puff as instructed twice daily. fexofenadine (DIANE) 180 mg tablet Take 180 mg by mouth once daily. esomeprazole (NEXIUM) 20 mg capsule Take 1 capsule by mouth once daily. No current facility-administered medications on file prior to visit. 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 Social History Main Topics Smoking status: Former Smoker Packs/day: 0.20 Years: 10.00 Types: Cigarettes Quit date: 04/22/2012 Smokeless status: Never Used Alcohol use: Yes Comment: special occasions Drug use: No Sexual activity: Yes Partners with: Male Other Topics Concern Service No Blood Transfusions No Caffeine Concern No Comment:uses caffeine Occupational Exposure No Hobby Hazards No Sleep Concern Yes Stress Concern Yes Weight Concern Yes Comment:has gained about 15 pounds Special Diet No Back Care No Exercise Yes Comment:4 times a week-aerobic and strength training Bike Helmet No Seat Belt Yes Self-Exams Yes Social History Narrative and lives with spouse and children Review of Symptoms REVIEW OF SYSTEMS GENERAL: No weight loss, malaise or fevers NECK: Negative for lumps, goiter, pain and significant neck swelling RESPIRATORY: Negative for cough, hemoptysis. See HPI CARDIOVASCULAR: Negative for chest pain, hypertension, CHF or palpitations. Has some swelling of the left ankle area as the day goes on. Better in the AM and not every day. GI: No nausea, vomiting, or diarrhea and See HPI NEURO: No history of syncope, paralysis, seizures or tremors See HPI EXAM: BP 122/70 Pulse 70 Temp 36.6 ?C (97.8 ?F) (Tympanic) Resp 16 Wt 103.7 kg (228 lb 9.6 oz) LMP 01/26/2011 BMI 36.74 kg/m2 General Appearance: Well appearing, alert, in no acute distress, well-hydrated, well nourished.. Ears: External ears normal, canals clear. Nose/Sinuses: Nares normal, septum midline, mucosa normal, no drainage. Has maxillary sinus tenderness. Oropharynx: Lips, mucosa, and tongue normal, teeth and gums normal, oropharynx normal. Neck: Supple, no adenopathy; thyroid symmetric, normal size, no bruits. Lungs: Lungs clear to auscultation. No wheezing, rhonchi, rales. Heart: RRR without murmur, gallop, or rubs. No ectopy. Abdomen: Normal abdominal exam, Abdomen soft, non-tender. Bowel sounds normal. No masses, organomegaly. Extremities: No deformities, edema, skin discoloration Peripheral Pulses: Normal. Health Maintenance List PAP EVERY 5 YEARS due on 11/10/2005 HPV EVERY 5 YEARS due on 11/10/2005 MAMMOGRAM due on 2015 TETANUS due on 05/14/2018 INFLUENZA Completed Data reviewed A/P ASSESSMENT/PLAN: 1. Acquired hypothyroidism - ICD9: 244.9, ICD10: E03.9 (primary diagnosis) - Await labs - Always feels tired but TSH has been ok. Will also check Free T4 and free T3. 2. Gastroesophageal reflux disease without esophagitis - ICD9: 530.81, ICD10: K21.9 - Begin treatment with Nexium 40 mg QD - ESOMEPRAZOLE MAGNESIUM 40 MG CAPSULE,DELAYED RELEASE 3. Dyslipidemia - ICD9: 272.4, ICD10: E78.5 - Await labs - Encouraged following a low fat, low cholesterol diet. - Discussed the benefits of regular aerobic exercise and weight loss. - Encouraged following a low carbohydrate, healthy oil intake diet. 4. Mild persistent asthma without complication - ICD9: 493.90, ICD10: J45.30 Mild intermittent Asthma uncontrolled with sinusitis - Continue current meds - Avoidance of triggers recommended - ALBUTEROL SULFATE HFA 90 MCG/ACTUATION AEROSOL INHALER - FLUTICASONE 110 MCG/ACTUATION HFA AEROSOL INHALER 5. Attention deficit hyperactivity disorder (ADHD), predominantly inattentive type - ICD9: 314.00, ICD10: F90.0 Controlled substance agreement signed. - Will start Vyvanse (LISDEXAMFETAMINE) 20 MG CAPSULE once a day - TOX SCREEN ROUT UR - PAIN PANEL, UR QUANT 6. Bacterial sinusitis - ICD9: 473.9, 041.9, ICD10: J32.9, B96.89 - Will begin treatment with: - SULFAMETHOXAZOLE 800 MG-TRIMETHOPRIM 160 MG TABLET 7. Current use of proton pump inhibitor - ICD9: V58.69, ICD10: Z79.899 - Check Mg 8. Encounter for therapeutic drug monitoring - ICD9: V58.83, ICD10: Z51.81 Check - TOX SCREEN ROUT UR - PAIN PANEL, UR QUANT Signed Prescriptions Disp Refills esomeprazole (NEXIUM) 40 mg capsule 90 capsule 1 Sig: Take 1 capsule by mouth once daily. HEIDY: No albuterol HFA (PROAIR HFA) 90 mcg/actuation inhaler 1 Inhaler 2 Sig: Inhale 2 Puffs as instructed every 4 hours as needed. HEIDY: No fluticasone (FLOVENT HFA) 110 mcg/actuation inhaler 1 Inhaler 5 Sig: Inhale 1 Puff as instructed twice daily. HEIDY: No sulfamethoxazole-trimethoprim (BACTRIM DS) 800-160 mg per tablet 20 tablet 0 Sig: Take 1 tablet by mouth twice daily for 10 days. lisdexamfetamine (VYVANSE) 20 mg capsule 30 capsule 0 Sig: Take 1 capsule by mouth once daily for 30 days. LESLIE Class: C-II F/u 4-6 weeks for ADD med f/u Time with patient face to face was 30 min Gwyn Small MD Referring Provider: SELF [200] Allergies As of Date: 07/30/2017 Noted Allergy Reaction KEFLEX (CEPHALEXIN) 04/29/2010 10 - Anaphylaxis ADDERALL (DEXTROAMPHETAMINE-AMPHE*07/30/2017 14 - Other: See Comments Comments: elevated blood pressure SEASONAL ALLERGIES 05/23/2012 14 - Other: See Comments Comments: Cats, Molds TAPE (ADHESIVE TAPE (ROSINS)) 05/16/2012 2 - Rash ZOLOFT (SERTRALINE HCL) 06/12/2014 14 - Other: See Comments Comments: Made her feel horrible PENICILLINS 04/29/2010 2 - Rash Date Reviewed: 07/30/2017 Reviewed by: Gwyn Samll - Fully Assessed Reason for Visit: Medication Follow-up [270] Primary Visit Diagnosis:Acquired hypothyroidism [E03.9] Other Visit Diagnoses:Gastroesophageal reflux disease without esophagitis [K21.9] Dyslipidemia [E78.5] Mild persistent asthma without complication [J45.30] Attention deficit hyperactivity disorder (ADHD), predominantly inattentive type [F90.0] Bacterial sinusitis [J32.9, B96.89] Current use of proton pump inhibitor [Z79.899] Encounter for therapeutic drug monitoring [Z51.81] Order(s):esomeprazole (NEXIUM) 40 mg capsuleTake 1 capsule by mouth once daily.Disp: 90 capsuleRfl: 1 albuterol HFA (PROAIR HFA) 90 mcg/actuation inhalerInhale 2 Puffs as instructed every 4 hours as needed.Disp: 1 InhalerRfl: 2 fluticasone (FLOVENT HFA) 110 mcg/actuation inhalerInhale 1 Puff as instructed twice daily.Disp: 1 InhalerRfl: 5 sulfamethoxazole-trimethoprim (BACTRIM DS) 800-160 mg per tabletTake 1 tablet by mouth twice daily for 10 days.Disp: 20 tabletRfl: 0 lisdexamfetamine (VYVANSE) 20 mg capsuleTake 1 capsule by mouth once daily for 30 days.Disp: 30 capsuleRfl: 0 TOX SCREEN ROUT UR [SQUTOX2] Order #: [id number]. #:[id number] PAIN PANEL, UR QUANT [SQUQNTPP] Order #: [id number]. #:[id number] T4 FREE/FREE THYROX [SQFT4] Order #: [id number] FUTURE T3 FREE BLD [SQFREET3] Order #: [id number] FUTURE Prescriptions as of 07/30/2017 Sig: ALBUTEROL SULFATE HFA 90 MCG/* Inhale 2 Puffs as instructed * FLUTICASONE 110 MCG/ACTUATION* Inhale 1 Puff as instructed t* COMPOUNDED PRESCRIPTION CPAP with supplies at 9 CM H2* COMPOUNDED PRESCRIPTION CPAP with supplies at 9 CM H2* COMPOUNDED PRESCRIPTION CPAP with supplies at 9 CM H2* ALLERGY RELIEF-D (FEXOFENADIN* Take 1 tablet by mouth once d* FEXOFENADINE 180 MG TABLET Take 180 mg by mouth once anisa* ESOMEPRAZOLE MAGNESIUM 40 MG * Take 1 capsule by mouth once * SULFAMETHOXAZOLE 800 MG-TRIME* Take 1 tablet by mouth twice * LISDEXAMFETAMINE 20 MG CAPSULE Take 1 capsule by mouth once * Problem List As Of Date 07/30/2017 Noted Resolved Allergic rhinitis, cause unspecified [J30.9] INVALID FOR* Priority: B Mild persistent asthma [J45.30] INVALID FOR* Priority: A More... Dyslipidemia [E78.5] INVALID FOR* Priority: A Tic douloureux [G50.0] Priority: A More... Multiple lung nodules [R91.8] Priority: B More... More... Routine gynecological examination [Z01.419] INVALID FOR* Priority: D More... Incisional hernia without mention of obstructio*INVALID FOR* ADHD (attention deficit hyperactivity disorder)*INVALID FOR* Priority: A More... Hyperopia with astigmatism - Both Eyes [H52.00,*INVALID FOR* SOLANGE (obstructive sleep apnea) AHI 17.1 [G47.33] INVALID FOR* Priority: B More... Gastroesophageal reflux disease without esophag*INVALID FOR* Priority: A More... Acquired hypothyroidism [E03.9] INVALID FOR* Priority: A Current use of proton pump inhibitor [Z79.899] INVALID FOR* Prescriptions ordered this encounter Disp Refills Start End ESOMEPRAZOLE MAGNESIUM 40 MG CAPSULE* 90 c* 1 07/30/2017 Route: ORAL Sig: Take 1 capsule by mouth once daily. ALBUTEROL SULFATE HFA 90 MCG/ACTUATI* 1 In* 2 07/30/2017 Route: INHALATION Sig: Inhale 2 Puffs as instructed every 4 hours as needed. FLUTICASONE 110 MCG/ACTUATION HFA AE* 1 In* 5 07/30/2017 Route: INHALATION Sig: Inhale 1 Puff as instructed twice daily. SULFAMETHOXAZOLE 800 MG-TRIMETHOPRIM* 20 t* 0 07/30/2017 08/09/2017 Cmt: Ok to give generic equivalent Route: ORAL Sig: Take 1 tablet by mouth twice daily for 10 days. LISDEXAMFETAMINE 20 MG CAPSULE 30 c* 0 07/30/2017 08/29/2017 Class: Print RX Route: ORAL Sig: Take 1 capsule by mouth once daily for 30 days. Medications Discontinued During This Encounter triamcinolone acetonide (KENALOG) 0.* 15 g 3 12/19/2016 07/30/2017 Route: TOPICAL Sig: Apply 1 application to affected area three times daily. Apply sparingly to area for rash/itching. Disc: Discontinued by Patient meloxicam (MOBIC) 15 mg tablet 30 t* 2 12/19/2016 07/30/2017 Route: ORAL Sig: Take 1 tablet by mouth once daily. for pain. Take with food. Disc: Discontinued by Patient traMADol (ULTRAM) 50 mg tablet 30 t* 0 08/26/2016 07/30/2017 Class: Print RX Route: ORAL Sig: Take 1 tablet by mouth every 6 hours as needed. Disc: Discontinued by Patient esomeprazole (NEXIUM) 20 mg capsule 30 c* 3 02/22/2016 07/30/2017 Cmt: This is for the OTC formulation. [facility] with [facility]. Route: ORAL Sig: Take 1 capsule by mouth once daily. Disc: Reason for discontinue is not on file. albuterol HFA (PROAIR HFA) 90 mcg/ac* 0 10/19/2016 07/30/2017 Class: Med Update Route: INHALATION Sig: Inhale 2 Puffs as instructed every 4 hours as needed. Disc: Reason for discontinue is not on file. fluticasone (FLOVENT HFA) 110 mcg/ac* 07/30/2017 Class: Historical Med Route: INHALATION Sig: Inhale 1 Puff as instructed twice daily. Disc: Reason for discontinue is not on file. Disposition: Return 4-6 weeks, for f/u ADD med f/u. Follow-up and Disposition History Recorded Encounter Status:Closed by GWYN SMALL on 07/30/17 JAMES Observed: 07/17/2017 Status: COMPLETED Source: [place] 12:00 AM [facility] REPOSITORY Patient Outreach (FAMPST) JOÃO CASTILLO ([id number]) 1975 F Date Time Provider Department 07/17/17 GWYN SMALL During your visit today, we recorded the following information about you: Allergies As of Date: 07/17/2017 Noted Allergy Reaction KEFLEX (CEPHALEXIN) 04/29/2010 10 - Anaphylaxis SEASONAL ALLERGIES 05/23/2012 14 - Other: See Comments Comments: Cats, Molds TAPE (ADHESIVE TAPE (ROSINS)) 05/16/2012 2 - Rash ZOLOFT (SERTRALINE HCL) 06/12/2014 14 - Other: See Comments Comments: Made her feel horrible PENICILLINS 04/29/2010 2 - Rash Date Reviewed: 05/18/2017 Reviewed by: Qamar Doran Ma - Fully Assessed Primary Visit Diagnosis:Dyslipidemia [E78.5] Other Visit Diagnoses:Medication management [Z79.899] Gastroesophageal reflux disease without esophagitis [K21.9] Acquired hypothyroidism [E03.9] Current use of proton pump inhibitor [Z79.899] Order(s):LIPID PANEL BASIC [SQLIPB] Order #: [id number] FUTURE MAGNESIUM BLD [SQMG1] Order #: [id number] FUTURE COMP METABOLIC PANEL [SQCMP] Order #: [id number] FUTURE URINALYSIS WITH MICROSCOPIC [SQUAWMIC] Order #: [id number] FUTURE TSH BLD [SQTSH] Order #: [id number] FUTURE Prescriptions as of 07/17/2017 Sig: COMPOUNDED PRESCRIPTION CPAP with supplies at 9 CM H2* COMPOUNDED PRESCRIPTION CPAP with supplies at 9 CM H2* COMPOUNDED PRESCRIPTION CPAP with supplies at 9 CM H2* X TRIAMCINOLONE ACETONIDE 0.1 %* Apply 1 application to affect* X MELOXICAM 15 MG TABLET Take 1 tablet by mouth once d* X ALBUTEROL SULFATE HFA 90 MCG/* Inhale 2 Puffs as instructed * X TRAMADOL 50 MG TABLET Take 1 tablet by mouth every * X ESOMEPRAZOLE MAGNESIUM 20 MG * Take 1 capsule by mouth once * X ALLERGY RELIEF-D (FEXOFENADIN* Take 1 tablet by mouth once d* X FLUTICASONE 110 MCG/ACTUATION* Inhale 1 Puff as instructed t* X FEXOFENADINE 180 MG TABLET Take 180 mg by mouth once anisa* Problem List As Of Date 07/17/2017 Noted Resolved Allergic rhinitis, cause unspecified [J30.9] INVALID FOR* Priority: B Mild persistent asthma [J45.30] INVALID FOR* Priority: A More... Dyslipidemia [E78.5] INVALID FOR* Priority: A Tic douloureux [G50.0] Priority: A More... Multiple lung nodules [R91.8] Priority: B More... More... Routine gynecological examination [Z01.419] INVALID FOR* Priority: D More... Incisional hernia without mention of obstructio*INVALID FOR* ADHD (attention deficit hyperactivity disorder)*INVALID FOR* Priority: A More... Hyperopia with astigmatism - Both Eyes [H52.00,*INVALID FOR* SOLANGE (obstructive sleep apnea) AHI 17.1 [G47.33] INVALID FOR* Priority: B More... Gastroesophageal reflux disease without esophag*INVALID FOR* Priority: A More... Acquired hypothyroidism [E03.9] INVALID FOR* Priority: A Current use of proton pump inhibitor [Z79.899] INVALID FOR* Encounter Status:Closed by EPIC, PRODUSER on 02/22/18 PROGRESS Observed: 05/18/2017 Status: COMPLETED Source: [place] 5:19 PM [facility] REPOSITORY HNO ID: [id number] Author: Daniel Baldwin Service: (none) Author Type: Physician Yard Hostler Type: Progress Notes Filed: 05/18/2017 7:44 PM Note Text: 05/18/2017 Patient presents with: Cough: x12 days SUBJECTIVE: This is a 41 year old that is here today for Complaint(s) of cough and congestion x 12 days. Has felt feverish/chills. + sinus pain and pressure, radiating into her teeth. Denies SOB, wheezing, vomiting, diarrhea.. PAST MEDICAL HISTORY Diagnosis Date - Asthma - Attention deficit hyperactivity disorder, predominantly inattentive type - Carpal tunnel syndrome - Environmental allergies - GERD (gastroesophageal reflux disease) on ppi - Hyperlipidemia - Hypothyroid - Multiple lung nodules followed by pulmonology - Tardive dyskinesia Ativan - Tic douloureux myoclonus jerk, more with stress, caffeine ALLERGIES Keflex [Cephalexin]; Seasonal Allergies; Tape [Adhesive Tape (Rosins)]; Zoloft [Sertraline Hcl]; Penicillins MEDICATIONS Current Outpatient Prescriptions: albuterol HFA (PROAIR HFA) 90 mcg/actuation inhaler Inhale 2 Puffs as instructed every 4 hours as needed. ALLERGY RELIEF-D,FEXOFENADINE, 60-120 mg per tablet Take 1 tablet by mouth once daily. fluticasone (FLOVENT HFA) 110 mcg/actuation inhaler Inhale 1 Puff as instructed twice daily. COMPOUNDED PRESCRIPTION CPAP with supplies at 9 CM H2O with humidification.Dx: G47.33 COMPOUNDED PRESCRIPTION CPAP with supplies at 9 CM H2O with humidification.Dx: G47.33 COMPOUNDED PRESCRIPTION CPAP with supplies at 9 CM H2O with humidification.Dx: G47.33 triamcinolone acetonide (KENALOG) 0.1 % cream Apply 1 application to affected area three times daily. Apply sparingly to area for rash/itching. meloxicam (MOBIC) 15 mg tablet Take 1 tablet by mouth once daily. for pain. Take with food. doxycycline monohydrate 100 mg tablet Take 1 tablet by mouth twice daily. traMADol (ULTRAM) 50 mg tablet Take 1 tablet by mouth every 6 hours as needed. esomeprazole (NEXIUM) 20 mg capsule Take 1 capsule by mouth once daily. fexofenadine (DIANE) 180 mg tablet Take 180 mg by mouth once daily. No current facility-administered medications for this visit. 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 Social History Main Topics Smoking status: Former Smoker Packs/day: 0.20 Years: 10.00 Types: Cigarettes Quit date: 04/22/2012 Smokeless status: Never Used Alcohol use: Yes Comment: special occasions Drug use: No Sexual activity: Yes Partners with: Male Other Topics Concern Service No Blood Transfusions No Caffeine Concern No Comment:uses caffeine Occupational Exposure No Hobby Hazards No Sleep Concern Yes Stress Concern Yes Weight Concern Yes Comment:has gained about 15 pounds Special Diet No Back Care No Exercise Yes Comment:4 times a week-aerobic and strength training Bike Helmet No Seat Belt Yes Self-Exams Yes Social History Narrative and lives with spouse and children REVIEW OF SYSTEMS All other reviewed and negative other than HPI. OBJECTIVE: BP 120/72 Pulse 84 Temp 36.4 ?C (97.6 ?F) (Tympanic) Resp 16 Wt 103.2 kg (227 lb 9.6 oz) LMP 01/26/2011 BMI 36.58 kg/m2 APPEARANCE Well appearing, alert, in no acute distress, well-hydrated, well nourished. EYES PERRLA, conjunctiva and sclera normal. EARS External ears normal, canals clear. TMs normal YO NOSE/SINUS Nares normal. Septum midline. Mucosa erythematous. No drainage. + YO maxillary sinus tenderness. THROAT normal, no erythema NECK Supple, no adenopathy HEART RRR with normal S1 and S2 LUNG clear to auscultation, No wheezing, rhonchi, rales. ASSESSMENT/PLAN: 1. Bacterial sinusitis - ICD9: 473.9, 041.9, ICD10: J32.9, B96.89 - Will begin treatment with as per antibiotic as written, see orders - The patient should also be given OTC cough and cold meds as needed, warm salt water gargles, throat lozenges and/or OTC throat spray as needed and nasal saline gtts and suction prn for the first 5-7 days of treatment. - Supportive care with plenty of fluids, rest, and analgesia prn. - Follow up in 3-5 days if symptoms persist or worsen. - DOXYCYCLINE HYCLATE 100 MG TABLET The patient indicates understanding of these issues and agrees with the plan. Reviewed red flags and when to seek care sooner. Daniel Baldwin PA-C 05/18/2017 CNOV Observed: 05/18/2017 Status: COMPLETED Source: [place] 5:00 PM [facility] REPOSITORY Office Visit ([facility]) JOÃO CASTILLO ([id number]) 1975 F Date Time Provider Department 05/18/17 5:00 PM DANIEL BALDWIN) [facility] During your visit today, we recorded the following information about you: Temperature Pulse Respiration Blood pressure 97.6 degrees 84/minute 16/minute 120/72 Weight 103.2 kg Daniel Baldwin PA-C 05/18/2017 7:44 PM Signed 05/18/2017 Patient presents with: Cough: x12 days SUBJECTIVE: This is a 41 year old that is here today for Complaint(s) of cough and congestion x 12 days. Has felt feverish/chills. + sinus pain and pressure, radiating into her teeth. Denies SOB, wheezing, vomiting, diarrhea.. PAST MEDICAL HISTORY Diagnosis Date - Asthma - Attention deficit hyperactivity disorder, predominantly inattentive type - Carpal tunnel syndrome - Environmental allergies - GERD (gastroesophageal reflux disease) on ppi - Hyperlipidemia - Hypothyroid - Multiple lung nodules followed by pulmonology - Tardive dyskinesia Ativan - Tic douloureux myoclonus jerk, more with stress, caffeine ALLERGIES Keflex [Cephalexin]; Seasonal Allergies; Tape [Adhesive Tape (Rosins)]; Zoloft [Sertraline Hcl]; Penicillins MEDICATIONS Current Outpatient Prescriptions: albuterol HFA (PROAIR HFA) 90 mcg/actuation inhaler Inhale 2 Puffs as instructed every 4 hours as needed. ALLERGY RELIEF-D,FEXOFENADINE, 60-120 mg per tablet Take 1 tablet by mouth once daily. fluticasone (FLOVENT HFA) 110 mcg/actuation inhaler Inhale 1 Puff as instructed twice daily. COMPOUNDED PRESCRIPTION CPAP with supplies at 9 CM H2O with humidification.Dx: G47.33 COMPOUNDED PRESCRIPTION CPAP with supplies at 9 CM H2O with humidification.Dx: G47.33 COMPOUNDED PRESCRIPTION CPAP with supplies at 9 CM H2O with humidification.Dx: G47.33 triamcinolone acetonide (KENALOG) 0.1 % cream Apply 1 application to affected area three times daily. Apply sparingly to area for rash/itching. meloxicam (MOBIC) 15 mg tablet Take 1 tablet by mouth once daily. for pain. Take with food. doxycycline monohydrate 100 mg tablet Take 1 tablet by mouth twice daily. traMADol (ULTRAM) 50 mg tablet Take 1 tablet by mouth every 6 hours as needed. esomeprazole (NEXIUM) 20 mg capsule Take 1 capsule by mouth once daily. fexofenadine (DIANE) 180 mg tablet Take 180 mg by mouth once daily. No current facility-administered medications for this visit. 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 Social History Main Topics Smoking status: Former Smoker Packs/day: 0.20 Years: 10.00 Types: Cigarettes Quit date: 04/22/2012 Smokeless status: Never Used Alcohol use: Yes Comment: special occasions Drug use: No Sexual activity: Yes Partners with: Male Other Topics Concern Service No Blood Transfusions No Caffeine Concern No Comment:uses caffeine Occupational Exposure No Hobby Hazards No Sleep Concern Yes Stress Concern Yes Weight Concern Yes Comment:has gained about 15 pounds Special Diet No Back Care No Exercise Yes Comment:4 times a week-aerobic and strength training Bike Helmet No Seat Belt Yes Self-Exams Yes Social History Narrative and lives with spouse and children REVIEW OF SYSTEMS All other reviewed and negative other than HPI. OBJECTIVE: BP 120/72 Pulse 84 Temp 36.4 ?C (97.6 ?F) (Tympanic) Resp 16 Wt 103.2 kg (227 lb 9.6 oz) LMP 01/26/2011 BMI 36.58 kg/m2 APPEARANCE Well appearing, alert, in no acute distress, well- hydrated, well nourished. EYES PERRLA, conjunctiva and sclera normal. EARS External ears normal, canals clear. TMs normal YO NOSE/SINUS Nares normal. Septum midline. Mucosa erythematous. No drainage. + YO maxillary sinus tenderness. THROAT normal, no erythema NECK Supple, no adenopathy HEART RRR with normal S1 and S2 LUNG clear to auscultation, No wheezing, rhonchi, rales. ASSESSMENT/PLAN: 1. Bacterial sinusitis - ICD9: 473.9, 041.9, ICD10: J32.9, B96.89 - Will begin treatment with as per antibiotic as written, see orders - The patient should also be given OTC cough and cold meds as needed, warm salt water gargles, throat lozenges and/or OTC throat spray as needed and nasal saline gtts and suction prn for the first 5-7 days of treatment. - Supportive care with plenty of fluids, rest, and analgesia prn. - Follow up in 3-5 days if symptoms persist or worsen. - DOXYCYCLINE HYCLATE 100 MG TABLET The patient indicates understanding of these issues and agrees with the plan. Reviewed red flags and when to seek care sooner. Daniel Baldwin PA-C 05/18/2017 Referring Provider: SELF [200] Allergies As of Date: 05/18/2017 Noted Allergy Reaction KEFLEX (CEPHALEXIN) 04/29/2010 10 - Anaphylaxis SEASONAL ALLERGIES 05/23/2012 14 - Other: See Comments Comments: Cats, Molds TAPE (ADHESIVE TAPE (ROSINS)) 05/16/2012 2 - Rash ZOLOFT (SERTRALINE HCL) 06/12/2014 14 - Other: See Comments Comments: Made her feel horrible PENICILLINS 04/29/2010 2 - Rash Date Reviewed: 05/18/2017 Reviewed by: Qamar Doran Ma - Fully Assessed Reason for Visit: Cough [28] Cmt: x12 days Primary Visit Diagnosis:Bacterial sinusitis [J32.9, B96.89] Order(s):doxycycline (VIBRA-TABS) 100 mg tabletTake 1 tablet by mouth twice daily for 10 days.Disp: 20 tabletRfl: 0 Prescriptions as of 05/18/2017 Sig: ALBUTEROL SULFATE HFA 90 MCG/* Inhale 2 Puffs as instructed * ALLERGY RELIEF-D (FEXOFENADIN* Take 1 tablet by mouth once d* FLUTICASONE 110 MCG/ACTUATION* Inhale 1 Puff as instructed t* DOXYCYCLINE HYCLATE 100 MG TA* Take 1 tablet by mouth twice * COMPOUNDED PRESCRIPTION CPAP with supplies at 9 CM H2* COMPOUNDED PRESCRIPTION CPAP with supplies at 9 CM H2* COMPOUNDED PRESCRIPTION CPAP with supplies at 9 CM H2* TRIAMCINOLONE ACETONIDE 0.1 %* Apply 1 application to affect* MELOXICAM 15 MG TABLET Take 1 tablet by mouth once d* TRAMADOL 50 MG TABLET Take 1 tablet by mouth every * ESOMEPRAZOLE MAGNESIUM 20 MG * Take 1 capsule by mouth once * FEXOFENADINE 180 MG TABLET Take 180 mg by mouth once anisa* Medication notes this encounter TRIAMCINOLONE ACETONIDE 0.1 % TOPICAL CREAM >> Qamar Doran Ma 05/18/2017 5:14 PM >> QAMAR DORAN MA SunMay 18, 2017 5:14 PM Not using MELOXICAM 15 MG TABLET >> Qamar Doran Ma 05/18/2017 5:13 PM >> QAMAR DORAN MA SunMay 18, 2017 5:13 PM Not taking DOXYCYCLINE MONOHYDRATE 100 MG TABLET >> Qamar Doran Ma 05/18/2017 5:12 PM >> QAMAR DORAN MA SunMay 18, 2017 5:12 PM completed TRAMADOL 50 MG TABLET >> Qamar Doran Ma 05/18/2017 5:13 PM >> QAMAR DORAN MA SunMay 18, 2017 5:13 PM Not taking ESOMEPRAZOLE MAGNESIUM 20 MG CAPSULE,DELAYED RELEASE >> Qamar Doran Ma 05/18/2017 5:13 PM >> QAMAR DORAN MA SunMay 18, 2017 5:13 PM Not taking Problem List As Of Date 05/18/2017 Noted Resolved Allergic rhinitis, cause unspecified [J30.9] INVALID FOR* Priority: B Mild persistent asthma [J45.30] INVALID FOR* Priority: A GERD (gastroesophageal reflux disease) [K21.9] INVALID FOR* Priority: A More... Dyslipidemia [E78.5] INVALID FOR* Priority: A Hypothyroidism [E03.9] INVALID FOR* Priority: A Tic douloureux [G50.0] Priority: A More... Multiple lung nodules [R91.8] Priority: B More... More... Routine gynecological examination [Z01.419] INVALID FOR* Priority: D More... Incisional hernia without mention of obstructio*INVALID FOR* ADHD (attention deficit hyperactivity disorder)*INVALID FOR* Priority: A Hyperopia with astigmatism - Both Eyes [H52.00,*INVALID FOR* SOLANGE (obstructive sleep apnea) AHI 17.1 [G47.33] INVALID FOR* Priority: B More... Prescriptions ordered this encounter Disp Refills Start End DOXYCYCLINE HYCLATE 100 MG TABLET 20 t* 0 05/18/2017 05/28/2017 Class: Print RX Route: ORAL Sig: Take 1 tablet by mouth twice daily for 10 days. Medications Discontinued During This Encounter doxycycline monohydrate 100 mg tablet 20 t* 0 10/19/2016 05/18/2017 Route: ORAL Sig: Take 1 tablet by mouth twice daily. Disc: Other Encounter Status:Closed by DANIEL BALDWIN PA-C on 05/18/17 MRI RT KNEE W/O Observed: 05/01/2017 Status: F Source: [facility] [place] CONTRAST 7:40 AM REPOSITORY DATE OF EXAM: May 01 2017 7:40AM CLINICAL HISTORY/ Patient Name: JOÃO CASTILLO STUDY: MRI RT KNEE W/O CONTRAST; 05/01/2017 7:40 am INDICATION: knee pain. Injured right knee 2 months ago while jumping out of truck. Diffuse pain and swelling which is intermittent. COMPARISON: None. ACCESSION NUMBER(S): [id number] ORDERING CLINICIAN: MARYAM MCLAIN TECHNIQUE: Multiplanar multisequential MR images of the right knee are performed. FINDINGS: There is a small joint effusion and small multilocular Chen's cyst. There is a cyst cluster of 3 small low signal loose bodies in the posterior joint capsule medial of midline. The largest measures 5 mm in maximum diameter. A 3 mm loose body is identified within the superior joint capsule laterally, posterior to the femoral metaphysis. There are mild changes of osteoarthritis with some mild thinning of the articular cartilage at the medial compartment toward the midline. There is moderate to severe thinning of the patellar articular cartilage at the medial facet. There is no sign of acute osseous fracture, bone marrow edema, or osseous mass. There is no evidence of lateral meniscal tear. There is no focal medial meniscal tear. The anterior and posterior cruciate ligaments, lateral collateral ligament complex, popliteus tendon, medial collateral ligament, extensor complex, and patellar retinacula are intact. CONCLUSION: IMPRESSION: Mild changes of osteoarthritis with articular cartilage thinning more pronounced at the medial patellar facet. Small joint effusion with multiple small low signal loose bodies measuring 5 mm or less in diameter. These findings are detailed above. No sign of acute meniscal or ligament tear. ALLERGIES ALLERGIES DATE TYPE / NAME / CODE REACTION SEVERITY SOURCE CODE 04/09/2018 Drug Penicillins/[id number] Hives Unknown [place] Allergy/41 6(RXNORM) [facility] [id number]([facility]) Repository 04/09/2018 Drug cephalexin/[id number] Anaphylaxis Unknown Erin Allergy/41 (RXNORM) [facility] [id number]([facility]) Repository 01/21/2018 DRUG LISDEXAMFETAMINE OTHER: SEE [facility]/[address] [place] [address] Main [id number]([facility]) Repository 11/08/2017 DRUG CITALOPRAM OTHER: [facility] Main [id number]([facility]) Repository 07/30/2017 DRUG/07087 DEXTROAMPHETAMINE-AMP OTHER: SEE Agustin [facility] 1003([facility] Main D CT) [facility] Repository 07/30/2017 DRUG/51895 DEXTROAMPHETAMINE-AMP OTHER: SEE [facility] 1003(OME HETAMINE Clinic Other D CT) [place] Repository 06/12/2014 DRUG SERTRALINE HCL OTHER: SEE Agustin [facility]/41 Clinic Main [id number]([facility]) Repository 06/12/2014 DRUG SERTRALINE HCL OTHER: SEE [facility]/ Clinic Other [id number]([facility]) Repository 05/23/2012 Environ/42 SEASONAL ALLERGIES OTHER: SEE Agustin [facility] [id number](SN Clinic Main OMED CT) [place] Repository 05/23/2012 Environ/42 SEASONAL ALLERGIES OTHER: SEE [facility] [id number]( Clinic Other OMED CT) [place] Repository 05/16/2012 Chemical/4 ADHESIVE TAPE RASH [facility] [id number](S (ROSINS) Clinic Main NOMED CT) [place] Repository 05/16/2012 Chemical/4 ADHESIVE TAPE RASH [facility] (S (ROSINS) Clinic Other NOMED CT) [place] Repository 04/29/2010 DRUG CEPHALEXIN ANAPHYLAXIS [facility] INGREDI/41 Clinic Other [id number]( [place] OMED CT) Repository 04/29/2010 Drug PENICILLINS RASH Low [facility] Class/4195 Clinic Other [id number]([facility] ED CT) Repository ENCOUNTERS ENCOUNTERS ADMIT/DISCHARGE ACCOUNT NUMBER ADMITTING ENCOUNTER LOCATION SOURCE CLASS 04/10/2018 [id number] Ambulatory [facility] Healthcare Repository 04/09/2018/04/09/20 [id number] Emergency [place] ing:ED Repository 01/21/2018/01/22/20 [id number] Ambulatory [facility] Main [place] Repository 01/21/2018/01/23/20 [id number] Ambulatory [address] Main [place] Repository 01/16/2018/01/18/20 [id number] Ambulatory [address] Main [place] Repository 11/08/2017/11/09/19 [id number] Ambulatory [facility] Main [place] Repository 11/08/2017/11/10/19 [id number] Ambulatory [facility] Main [place] Repository 10/30/2017/11/01/19 [id number] [facility] Other [place] Repository 09/27/2017/10/02/19 [id number] Ambulatory [facility] Main [place] Repository 08/28/2017/08/30/19 [id number] Ambulatory [facility] Main [place] Repository 07/30/2017/07/31/19 [id number] Ambulatory [facility] Main [place] Repository 07/30/2017/08/01/19 [id number] Ambulatory [facility] [facility] Main [place] Repository 05/18/2017/05/22/19 [id number] Ambulatory [facility] [facility] Main [place] Repository 05/17/2017 [id number] Ambulatory [facility] Healthcare Repository 05/01/2017 [id number] RAYNE, Ambulatory Replaced by [facility] Repository PAYERS PAYERS ENCOUNTER GUARANTOR PAYER SUBSCRIBER SOURCE 04/10/2018 JOÃO L Primary JOÃO L [facility] Healthcare BLOOMDOB: Insurance:CARESOURCE^ BLOOMDOB: Repository [id number] [facility] cy Number: [address], [place] [id number] [address] [place] [phone]: ([phone]) Date:Plan 02338Ndn: () Name:[facility] [phone] () [address] [place] [address] [id number]: 04/09/2018 JOÃO L Primary JOÃO L Erin [id number] Insurance:CARESOURCEP [facility]LOOMDOB[facility] [address] olic Number: [id number] [place], [place] [id number] Repository [address]Vwj: (330) Date:2018-04-09P O [phone] () [address]ATTN: [place] [address]VB: 04/09/2018 Secondary NOT GIVENUNK Erin Insurance:SELF PAY [facility] Number: Effective Repository Date:2018-04-09 05/17/2017 JOÃO L Primary JOÃO L [facility] Healthcare BLOOMDOB: Insurance:MICRO BLOOMDOB: Repository [id number] CARRIER^L^[id number]^^^[id number] 0^XXPolicy Number: [address] [place], [place] [id number] [place], [place] [address]Efn: ([phone]) Date:Plan 79524Inm: () Name:HealthPO [phone] () [address]KEVINABRAM [address]DM: 05/01/2017 JOÃO L Primary JOÃO L [facility] Healthcare BLOOMDOB: Insurance:MICRO BLOOMDOB: Repository [id number] CARRIER^L^[id number] N 0^XXPolicy Number: [id number] N ZAIRA MORENO [id number] ZAIRA MORENO [place], [place] Date:[place], [place] [address]Yls: ([phone]) Name:[facility] [address]Xee: (hp) 29[address]CLALY [place] [phone] ( [id number]:
== END 2018-04-09 21:20 | disposition home or self-care (01) ==
PROVIDERS: Emergency Provider Emergency Medicine; Family Provider Family Medicine; PCP Family Medicine
DX: S53.401A Unspecified sprain of right elbow, initial encounter (principal); S63.636A Sprain of interphalangeal joint of right little finger, initial encounter; J45.909 Unspecified asthma, uncomplicated; W19.XXXA Unspecified fall, initial encounter; Y93.9 Activity, unspecified; Y92.89 Other specified places as the place of occurrence of the external cause; Y99.9 Unspecified external cause status
CPT/HCPCS: 73080; 73140; 99283

== ENCOUNTER 2019-06-19 10:21 | Emergency (ER) | payer MEDICAID, SELFPAY ==
[2019-06-19 10:24] VITALS: BP 159/100; PULSE 97; RESP 18; TEMP 37; O2SAT 98; BMI 37.1
--- NOTE | 2019-06-19 10:37 | ED.DCSUM_ITS ---
History of Present Illness Chief Complaint: Lower Extremity Injury Informant: Patient Onset: Today Narrative: Slipped and fell on ice coming down onto her left ankle. States that she tried to bear weight on it and fell again. She notes pain diffusely about the ankle b ut more specifically laterally over the malleolus. Past Medical History - Allergies and Home Meds Allergies/Adverse Reactions: Allergies cephalexin [From Keflex] Allergy (Verified 04/09/18 19:46) Anaphylaxis Primary Care Physician: [facility] Doctor,Out of [NON-STAFF] - Smoking Status: Never smoker Review of Systems General: Denies: Chills, Fever, Sweats Eyes: Denies: Visual changes - bilaterally, Diplopia ENT: Denies: Rhinorrhea, Sore throat Cardiovascular: Denies: Chest pain, Palpitations Respiratory: Denies: Dyspnea, Cough, Dyspnea on exertion Gastrointestinal: Denies: Abdominal pain, Nausea, Vomiting, Diarrhea, Melena, Hematochezia Genitourinary: Denies: Dysuria, Hematuria, Frequency Musculoskeletal: Denies: Back pain, Extremity Pain Skin: Denies: Rash, Wounds Neurological: Denies: Headache, Weakness, Numbness Physical Exam Vital Signs/Narrative: Vital Signs Temp Pulse Resp BP Pulse Ox 06/19/19 10:24 98.6 F 97 18 159/100 H 98 Inital Vital Signs reviewed: Yes General: Well nourished, Well developed, No Acute Distress Head: Normocephalic, Atraumatic Eyes: Perrl, EOMI ENT: Moist mucous membranes, No rhinorrhea Neck: Supple, Nontender Cardiovascular: Regular rate, Regular rhythm, No murmurs Respiratory: No distress, CTA bilaterally, Chest nontender Abdomen: Soft, Nontender, Nondistended, Normal bowel sounds Back: Nontender, Normal Inspection Extremities: No edema, Tenderness - There is tenderness and swelling anterior to the lateral malleolus. She complains of tenderness medially and posteriorly. No fibular head tenderness no fifth metatarsal tenderness. NVI Skin: Normal color, No rash Neurological: Alert, Oriented x3, Cranial nerves II-XII grossly intact, Normal Strength, Normal Sensation Psychological: Normal affect, Normal Mood Diagnostic/Tx/Re-eval - Medical Decision Making X-rays of the ankle were obtained and were negative for fracture. Patient was placed in Jose Martin wrap and given crutches. She was advised that she should be back to normal 10 to 14 days if not she should follow-up. ED Disposition - Plan for ED Patient: Disposition: Home or Assisted Living Diagnosis: Sprain of ankle, left Instructions: Sprain, Ankle, with X-Ray Referrals: [facility] Doctor,Out of [NON-STAFF] - 10-14 Days if not better
--- NOTE | 2019-06-19 10:50 | RAD_ITS ---
STUDY: X-RAY - LEFT ANKLE REASON FOR EXAM: Female, 43 years old. FALL, PAIN TECHNIQUE: 3 view(s) of the ankle. COMPARISON: None. FINDINGS: Normal visualized distal tibia and fibula. Normal medial and lateral malleoli. Normal tibiotalar articulation and ankle mortise. Normal visualized talus and calcaneus. The visualized subtalar, talonavicular, calcaneocuboid and tarsal articulations are normal. The soft tissue structures are unremarkable. RAD/Ankle min 3 Views IMPRESSION: Normal x-ray examination of the ankle. Electronically Signed: Rex Ulloa, at 11:09 EST , Service support ,
[2019-06-19 11:16] VITALS: BP 129/76; PULSE 86; RESP 18; O2SAT 95
[2019-06-19] MEDS: Ibuprofen 600 MG Tablet PO (11:16)
== END 2019-06-19 11:28 | disposition home or self-care (01) ==
PROVIDERS: Emergency Provider Emergency Medicine
DX: S93.402A Sprain of unspecified ligament of left ankle, initial encounter (principal); W00.0XXA Fall on same level due to ice and snow, initial encounter; Y93.9 Activity, unspecified; Y92.89 Other specified places as the place of occurrence of the external cause; Y99.9 Unspecified external cause status
CPT/HCPCS: 73610; 99283

== ENCOUNTER 2019-10-21 14:41 | Emergency (ER) | payer OTHER, MEDICAID, SELFPAY ==
[2019-10-21 14:43] VITALS: BP 144/64; PULSE 97; RESP 20; TEMP 36.6; O2SAT 98; BMI 38.2
--- NOTE | 2019-10-21 15:03 | RAD_ITS ---
STUDY: X-RAY - RIGHT KNEE REASON FOR EXAM: Female, 43 years old. RIGHT HIP AND KNEE PAIN AFTER FALL TECHNIQUE: 4 view(s) of the knee. COMPARISON: None. FINDINGS: Normal visualized distal femur. Normal visualized proximal tibia and fibula. Normal proximal tibiofibular articulation. Normal medial femorotibial compartment. Normal lateral femorotibial compartment. Normal patellofemoral articulation. The soft tissue structures are unremarkable. RAD/Knee 4 or More Views IMPRESSION: Normal x-ray examination of the knee. Electronically Signed: Rex Ulloa, at 15:44 EDT , Service support ,
--- NOTE | 2019-10-21 15:04 | ED.VIS.GEN ---
History of Present Illness Chief Complaint: Fall Informant: Patient Onset: Today Context: Sudden Onset Timing: Continuous Current Severity: Moderate Maximum Severity: Moderate Narrative: Patient is a 43-year-old female was otherwise healthy who presents to the emergency department with right knee and right hip injury. 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 She was coming down a clients outdoor steps. She states that she twisted her foot coming down the stair, ended up twisting her right knee, and then landing on her right hip. She did not lose consciousness. She did not strike her head. She denies any nausea or vomiting. She does describe some pain trying to ambulate especially in the knee and hip. She states she is otherwise been in her normal state of health. She did take 800 mg of ibuprofen prior to arrival. Prior similar symptoms: No Recent Illness/Hospitalization: No Past Medical History - Allergies and Home Meds Allergies/Adverse Reactions: Allergies cephalexin [From Keflex] Allergy (Verified 10/21/19 14:46) Anaphylaxis Primary Care Physician: [facility] ,Out of [Primary Care Provider] - Prior records reviewed: Yes Surgical History: noncontributory Smoking Status: Former smoker Review of Systems General: Denies: Chills, Fever, Sweats Eyes: Denies: Visual changes - bilaterally, Diplopia ENT: Denies: Rhinorrhea, Sore throat Cardiovascular: Denies: Chest pain, Palpitations Respiratory: Denies: Dyspnea, Cough, Dyspnea on exertion Gastrointestinal: Denies: Abdominal pain, Nausea, Vomiting, Diarrhea, Melena, Hematochezia Genitourinary: Denies: Dysuria, Hematuria, Frequency Musculoskeletal: Denies: Back pain, Extremity Pain Skin: Denies: Rash, Wounds Neurological: Denies: Headache, Weakness, Numbness Physical Exam Vital Signs/Narrative: Vital Signs Temp Pulse Resp BP Pulse Ox 10/21/19 14:43 97.9 F 97 20 H 144/64 H 98 Inital Vital Signs reviewed: Yes General: Well nourished, Well developed, No Acute Distress Head: Normocephalic, Atraumatic Eyes: Perrl, EOMI ENT: Moist mucous membranes, No rhinorrhea Neck: Supple, Nontender Cardiovascular: Regular rate, Regular rhythm, No murmurs Respiratory: No distress, CTA bilaterally, Chest nontender Abdomen: Soft, Nontender, Nondistended, Normal bowel sounds Back: Nontender, Normal Inspection Extremities: No edema, Tenderness - Tenderness over the right greater trochanter. Pelvis is stable. No gross laxity of the right knee. Extension preserved. Mild pain with motion. Normal pulses. Skin: Normal color, No rash Neurological: Alert, Oriented x3, Cranial nerves II-XII grossly intact, Normal Strength, Normal Sensation Psychological: Normal affect, Normal Mood Diagnostic/Tx/Re-eval Clinical Impression(s) from Imaging Studies Knee X-Ray 10/21/19 15:03 IMPRESSION: Normal x-ray examination of the knee. Electronically Signed: Rex Ulloa, at 15:44 EDT , Service support , Hip/Pelvis X-Ray 10/21/19 15:25 IMPRESSION: No acute abnormalities Electronically Signed: Rex Ulloa, at 15:44 EDT , Service support , - Medical Decision Making Patient presents after fall. She has no loss of consciousness or head injury. Most of the pain was in her right hip and right knee. There is no gross laxity. Plain films were obtained which show no evidence of fracture. The patient is able to ambulate. She declined analgesics. As this was a work-related injury, she will be allowed to return to work tomorrow with restrictions until follow-up. She is comfortable this plan of care and will be discharged. Impression 1. Mechanical fall 2. Right hip contusion 3. Right knee sprain ED Disposition - Plan for ED Patient: Instructions: ED Mechanical Fall Referrals: [facility] [GROUP OF PHYSICIANS] -
--- NOTE | 2019-10-21 15:25 | RAD_ITS ---
STUDY: X-RAY - PELVIS AND RIGHT HIP REASON FOR EXAM: Female, 43 years old. RIGHT HIP AND KNEE PAIN AFTER FALL TECHNIQUE: 3 views of the pelvis and hip. COMPARISON: None. FINDINGS: There is a non-specific bowel gas pattern. Normal visualized soft tissue structures. Normal bilateral iliac wings, sacroiliac joints and visualized sacrum. Normal bilateral superior and inferior pubic rami. There is narrowing with sclerosis of the pubic symphysis. Normal bilateral ischial tuberosities. Normal visualized femoral head. Normal acetabulum. Normal hip joint. RAD/HIP, UNI W/ Pelvis 2-3 Views IMPRESSION: No acute abnormalities Electronically Signed: Rex Ulloa, at 15:44 EDT , Service support ,
== END 2019-10-21 16:29 | disposition home or self-care (01) ==
PROVIDERS: Emergency Provider Emergency Medicine
DX: S70.01XA Contusion of right hip, initial encounter (principal); S83.91XA Sprain of unspecified site of right knee, initial encounter; W19.XXXA Unspecified fall, initial encounter; Z87.891 Personal history of nicotine dependence; Z88.1 Allergy status to other antibiotic agents
CPT/HCPCS: 73502; 73564; 99282

== ENCOUNTER → 2019-10-22 10:26 | Outpatient (CLI) | payer MEDICAID, SELFPAY ==
[2019-10-22 10:23] VITALS: BMI 38.2
--- NOTE | 2019-10-22 10:27 | RAD_ITS ---
STUDY: X-RAY - LUMBAR SPINE REASON FOR EXAM: Female, 43 years old. Recent injury, pain TECHNIQUE: 5 view(s) of the lumbar spine were obtained including oblique views. COMPARISON: None FINDINGS: Normal lumbar lordosis. There is no substantial scoliosis. There is a normal alignment of the vertebrae. Normal vertebral bodies and endplates. Moderate degree of disc space narrowing at the L5-S1 level. Prior cholecystectomy. RAD/L/S Spine Min 4 Views IMPRESSION: Degenerative changes of the spine, as detailed above. Electronically Signed: Rex Ulloa, at 11:16 EDT , Service support ,
== END ==
PROVIDERS: Referring Provider Physician Assistant; Visit Provider Physician Assistant
DX: S39.012A Strain of muscle, fascia and tendon of lower back, initial encounter (principal)
CPT/HCPCS: 72110

== ENCOUNTER → 2019-11-04 11:09 | Outpatient (CLI) | payer OTHER, SELFPAY ==
[2019-10-22 10:27] VITALS: BMI 38.2
--- NOTE | 2019-11-04 11:10 | MRI_ITS ---
STUDY: MRI RIGHT KNEE REASON FOR EXAM: Right knee pain, 10/21/2019. TECHNIQUE: Standardized fat and water weighted pulse sequences were obtained in all 3 orthogonal planes. COMPARISON: Radiographs 10/21/2019. FINDINGS: There is a small radial tear of the posterior horn of the medial meniscus (proton-density coronal image 16; T2 coronal image 10). Normal hyaline cartilage of the medial femorotibial compartment. Normal medial femoral condyle and tibial plateau. Normal medial collateral ligamentous complex (MCL). Normal distal semimembranosus, gracilis and semitendinosus tendons. Normal lateral meniscus. Normal hyaline cartilage of the lateral femorotibial compartment. Normal lateral femoral condyle and tibial plateau. Normal proximal tibiofibular articulation. Normal lateral collateral (fibular) ligament. Normal popliteus tendon. Normal biceps femoris tendon. Normal anterior cruciate ligament (ACL). Normal posterior cruciate ligament (PCL). Normal congruent patellofemoral articulation. There is intermediate grade chondromalacia of the medial patellar facet (T2 sagittal image 14). Normal medial and lateral patellar retinaculum. Normal quadriceps tendon. Normal patellar tendon. Normal Hoffa''s fat pad. There is a minimal volume of fluid in the knee joint. There is a thin medial patellar plica. There is a small popliteal cyst (T2 sagittal images 19, 20). The otherwise visualized osseous structures are unremarkable. MRI/Lower Ext Joint Only (Routine) IMPRESSION: Small radial tear of the medial meniscus. Chondromalacia patellae. Small popliteal cyst. Electronically Signed: Best Fagan MD at 12:44 EDT Tel , Service support ,
== END ==
PROVIDERS: Referring Provider Physician Assistant; Visit Provider Physician Assistant
DX: S83.91XA Sprain of unspecified site of right knee, initial encounter (principal)
CPT/HCPCS: 73721

== ENCOUNTER 2020-01-02 08:06 | Day surgery (SDC) | payer OTHER, SELFPAY ==
[2019-11-18 09:34] VITALS: BMI 38.2
[2019-12-23 11:38] VITALS: BMI 38.2
--- NOTE | 2019-12-23 12:17 | HP_ITS ---
Intake I have re-examined the patient. There are no clinical changes since date of exam. Intake Visit Reasons: right knee Is patient in pain?: Yes Allergies Penicillins Allergy (Unknown, Verified 12/23/19 10:54) unknown cephalexin [From Keflex] Allergy (Verified 12/23/19 10:54) Anaphylaxis [facility] Medical History (Updated 12/23/19 @ 11:38 by Briana Dsouza) Asthma (Acute) Surgical History (Updated 10/22/19 @ 10:26 by Tara Baker) History of cholecystectomy (Acute) History of hysterectomy (Acute) History of tonsillectomy and adenoidectomy (Acute) Social History (Updated 12/23/19 @ 13:[address] Gabriella Don, DO) Smoking Status: Former smoker alcohol intake: never HPI right knee: Surgical H&P: Yes Details: Parts of this documentation were recorded by a scribe, this documentation accurately reflects the service provided and the decisions made by me, Dr. Gabriella Don, 12/23/19 1051. JOÃO GALVAN is a 44 year old F here today for her right knee. Patient states that she continues to have knee pain. She has pain over her medial and posterior knee. Patient notes htat she fell down her steps recently and has increased her pain since her fall. She has a knee brace which she wears at all times. Patient also uses KT tape for support which is helpful. She is ambulating with crutches. She is approved for surgery. Patient is not working currently. ROS [facility] Reports joint pain, Reports joint swelling, Reports limited joint movement, Denies numbness, Denies tingling Skin/Breast Reports system reviewed and no additional complaints, except as docu Neuro Yes system reviewed and no additional complaints, except as docu, No numbness, No tingling Ortho Exam Right Knee Skin/Wound: Yes CDI, No erythema, No ecchymosis Examination: Yes Med jt line tenderness, Yes Pain with flexion, Yes Tapan's Test Stability: NML: Anterior Drawer, NML: Tamia, NML: Valgus 0, NML: Valgus 30, NML: Varus 0, NML: Varus 30, NML: Dial 90, NML: Dial 30 Assessment & Plan Problems 1. Acute medial meniscus tear of right knee, initial encounter S83.241A Plan Reviewed the pre-operative plans with the patient. Risks and benefits of the procedure were fully explained, including but not limited to infection, neurovascular injury, continued pain, arthritis, stiffness, need for further surgery, re-injury, DVT, PE, general risks of anesthesia, and loss of limb or life. The patient understands all the risks and does wish to proceed with written consent. Follow up for her 2 week post op appointment or sooner if pain, swelling, numbness or associated symptoms, or concerns develop. All questions answered. Patient in agreement of plan. Coding Level of Care Code Off vis,est,level 4 Diagnoses Acute medial meniscus tear of right knee, initial encounter S83.241A ??Encounter type: initial encounter 12/23/19 1323 <Electronically signed by Gabriella murray DO> Date _ Gabriella Don DO
[2020-01-02] VITALS (9 sets, daily range): BP systolic 124–159; BP diastolic 56–94; PULSE 76–99; RESP 16; TEMP 36.3–36.6; O2SAT 95–100; BMI 37.7
[2020-01-02] MEDS: Lactated Ringers 1,000 ML 100 ML IV (08:40)
[2020-01-02] MEDS: Epinephrine (1 mg/ml) 1 MG/ML VIAL (11:30)
[2020-01-02] MEDS: Mupirocin Ointment 22gm Tube 1 APPLIC (12:25)
--- NOTE | 2020-01-02 12:39 | PCM.DC.ORTHO ---
Discharge Diet: No Restrictions - ttwb left leg 6 weeks, keep brace locked in extension durimb ambulation and at night, follow up on sunday for dressing change and adjustment of brace, ice, elevate, ankle pumps right foot as much as possible first 72 hours, call with concerns Discharge Activity: May Not Drive May shower in (days): 1 Ice area for (Minutes): 20 - Every hour while awake. Weight Bearing Status: Weight bearing as tolerated Keep extremity elevated above heart level: Operative Extremity Call your doctor if your incision/area has: Continuous Slow Oozing, Sudden Increased Bleeding, Increased Pain/ Swelling, Increased Redness, Foul Smelling Discharge Call your doctor if you observe: Fever of 101 or Higher, Coldness, Increased Pain, Numbness or Tingling, Change in Color, Calf discomfort Allergies/Adverse Reactions: Allergies Penicillins Allergy (Unknown, Verified 01/02/20 08:22) unknown cephalexin [From Keflex] Allergy (Verified 01/02/20 08:22) Anaphylaxis Medications to take at Discharge fluticasone propionate 50 mcg/actuation blister powder for inhalation 1 inh INHALATION BID 10/22/19 loratadine 10 mg tablet 10 mg PO DAILY 10/22/19 Albuterol IH (ProAir) [Proair Hfa (SP)Vent Pts] 1 - 2 puff INHALATION Q6H PRN PRN 12/25/19 Cider Vinegar [Apple Cider Vinegar] 600 mg PO DAILY 12/25/19 Ibuprofen 800 mg PO TID PRN 12/25/19 Turmeric Root Extract [Turmeric] 500 mg PO DAILY 12/25/19 Hydrocodone Bitart/Apap 5-325 [Redfield 5MG-325MG] 1 - 2 tablet PO Q6H PRN PRN 5 Days #40 tablet 01/02/20 The following prescriptions were given: Hydrocodone Bitart/Apap 5-325 [Redfield 5MG-325MG] 1 - 2 tablet PO Q6H PRN PRN 5 Days #40 tablet PRN Reason: Pain Transmission Status: Sent to [facility] Primary Care Physician: Care Physician,No Primary [Primary Care Provider] - Test Results: Test results from this visit will be discussed in further detail at your follow-up appointment, if applicable. Please Follow Up With: Gabriella Don, DO - [phone]
--- NOTE | 2020-01-02 12:40 | OP.PCM_ITS ---
Report of Operation Date of Procedure: 01/02/20 Pre-Operative Diagnosis: right knee medial meniscus root tear, oa Post-Operative Diagnosis: same Surgery/Procedure Performed:: sark, mm root repair, chondroplasty patella and mfc planishing press operator: Artie Khan Type of Anesthesia:: General Anesthesiologist: Lalit Howell Estimated Blood Loss (mL): min Fluids Replaced: see anesthesia chart Description of Procedure: Preop note Patient is a 44-year-old female who twisting injury to her right knee pain locking instability. MRI confirms meniscal root tear as well as her osteoarthritis. Risk benefits alternatives surgery discussed with patient. Risks including but not limited to blood loss, blood clot, infection, neurovasc ular, failure procedure, loss of life and loss of limb. Patient is aware like proceed with right knee arthroscopy repair as indicated. Operative note Dragon disc Dragon JLID We discussed the current risk associated COVID-19. While it is understood that there is a community spread of COVID 19 the risk of rivera COVID-19 while at [facility] is very low, however, the risk cannot be completely mitigated because of the community spread of the disease. We discussed in detail the risk of exposure to and or potential harm posed by the COVID-19 virus with having a surgery/procedure at this time versus the risk of delaying the surgery/procedure. Is not possible to know either the risk of delaying the surgery procedure or chance of getting an infection with perfect accuracy, but a joint decision was made to proceed at this time with a schedule surgery/procedure as indicated on the consent form. Patient was notified that we will need to comply with any screening or testing [facility] wishes to perform or that surgery may be delayed for any positive results. Patient seen and examined in the preop holding area. Right leg was marked. Patient brought to the operating room placed supine on the operating table. Signed, anesthesia, antibiotics were administered. Right leg was prepped and draped usual sterile technique with a tourniquet around his upper her upper thigh. All bony prominences well-padded SCDs placed on her contralateral limb. Patellar portal placement for anterolateral and anteromedial portal placement. The right leg was then elevate exsanguinated and tourniquet was raised her pressure of 250 torr. We then created an anterior lateral portal and after timeout was performed. Began our diagnostic arthroscopy. The patella joint patella had some unstable loose cartilage pieces especially at the inferior pole. We created an anterior medial portal under direct visualization. We then probed the posterior horn of the medial meniscus which was unstable the root was examined completely off. The ACL and PCL were present within the notch. The lateral meniscus was intact and stable probing the lateral femoral condyle lat eral tibial plateau were intact as well. The medial femoral condyle had grade 2 fibrillated changes actually has had grade 3 there was a 4 x 4 lesion of it was not eburnated down to bone on the medial femoral condyle which was gently debrided back some loose pieces of cartilage on the femoral side as well. She had grade 2 fibrillated changes in the chondral side as well. We then prepared our tunnel for our meniscal root in standard technique. We drilled using the Arthrex guide system then used a flip cutter and cut about 10 mm back we then and inserted to suture wire and a locked loop and did this twice and then brought the suture down through the bony tunnel that we created and then the sutures were then placed into a swivel lock on the proximal tibia. We then reinserted the probe into the medial compartment and the root was intact. We then went back and did shave any loose pieces on the patella as well. The knee was then irrigate with copious muscle sterile saline tourniquet was deflated. Portals were closed with interrupted 4-0 nylon and the incision was closed on the tibial side was closed with deep 2-0 Vicryl in a running 4 Monocryl. Sterile dressings were applied brace was applied locked from 0 to 30 degrees. Patient tolerated procedure well no complications transferred recovery room stable condition Postoperative note Toe-touch weightbearing on the right leg Follow-up on Sunday with Vincenzo for dressing change Follow-up or call with concerns if there is other issues Hospital pharmacy has prescription Dragon disclaimer This note was generated with [employer] dictation software. It may contain incorrect words, spelling, and punctuation that were not noted in checking the note before signing.
[2020-01-02] MEDS: HYDROcodone Bitartrate/Apap 5/325 Tablet PO ×2 (14:35→15:01)
--- NOTE | 2020-01-02 14:37 | SUR.PHASEII ---
PT. PAINFUL; MOANING AND HEAVILY SIGHING. SHE RATES HER PAIN #9. SHE REPORTS NEEDING TO URINATE BUT STATES SHE DOESN'T WANT TO GET UP. RN HAS GIVEN NORCO FOR PAIN AND DISCUSSED ALLOWING MEDICATION TO WORK AND THEN GETTING UP TO [facility]SC WITH ASSISTANCE. PT. RELUCTANT BUT AGREEABLE TO THIS PLAN.
--- NOTE | 2020-01-02 15:02 | SUR.PHASEII ---
PT. FEELS HER PAIN IS LESSENING. SHE IS AGREEABLE TO [facility] NORCO WHICH RN JUST GAVE. DR. MCMAHON AWARE OF PT'S PAIN LEVEL.
--- NOTE | 2020-01-02 16:42 | SUR.PHASEII ---
PT C/O SEVERE PAIN DESPITE RECEIVING PAIN MEDS. OFFERED PT A NERVE BLOCK. PT REFUSED. NEURO CHECKS WNL. PPP. PT PREPARED FOR DISCHARGE TO HOME.
== END 2020-01-02 16:40 | disposition home or self-care (01) ==
LOC: SDC 08:07 → AC 08:09
PROVIDERS: Anesthesiology; Referring Provider Orthopaedic Surgery; Visit Provider Orthopaedic Surgery
PROC: (CPT 29882; principal; 2020-01-02 09:25)
DX: S83.241A Other tear of medial meniscus, current injury, right knee, initial encounter (principal); W10.9XXA Fall (on) (from) unspecified stairs and steps, initial encounter; X50.1XXA Overexertion from prolonged static or awkward postures, initial encounter; Y92.89 Other specified places as the place of occurrence of the external cause; Y99.9 Unspecified external cause status; Z87.891 Personal history of nicotine dependence; Z90.49 Acquired absence of other specified parts of digestive tract; Z88.0 Allergy status to penicillin; Z88.1 Allergy status to other antibiotic agents
CPT/HCPCS: 01400; 29881; 87635; 94799; J7120; J2405; U0003

== ENCOUNTER → 2020-02-10 14:34 | Outpatient (CLI) | payer OTHER, MEDICAID, SELFPAY ==
[2020-01-15 10:50] VITALS: BMI 37.7
--- NOTE | 2020-02-10 14:36 | VDLE_ITS ---
Reason For Study: Swelling RIGHT GSV is normal. CFV is compressible, spontaneous, phasic, competent and demonstrates normal augmentation. FV is compressible, spontaneous, phasic, competent and demonstrates normal augmentation. POP V is compressible, spontaneous, phasic, competent and demonstrates normal augmentation. T/P Trunk is compressible. PTV is compressible. RT PerV is compressible. Procedure Exam performed in department. A preliminary report was called and/or faxed to Emily. Interpretation Summary There is no evidence of right lower extremity deep vein thrombosis. Right great saphenous vein appears patent and compressible segmentally. Ordering Physician: Dakota Diaz Performed By: Arpita Ruiz RVT
== END ==
PROVIDERS: Referring Provider Physician Assistant; Visit Provider Physician Assistant
DX: M79.89 Other specified soft tissue disorders (principal)
CPT/HCPCS: 93971

== ENCOUNTER 2020-04-09 11:30 | Outpatient (RCR) | payer OTHER, SELFPAY ==
[2020-02-17 11:21] VITALS: BMI 37.7
--- NOTE | 2020-02-25 17:34 | HP.PTEVAL ---
Patient's Visit Information JOÃO GALVAN is a 44 year old F referred to Physical Therapy by Dr. Gabriella Don DO with a diagnosis of SPRAIN OF RIGHT KNEE. Date of Evaluation: 02/25/20 Physical Therapist: Matthew Peoples PT, Cert MDT, OCS - Visit Plan Frequency: 2-3x /Week Duration: 4-6 Weeks Plan: PATIENT UNDERWENT S/P MENISCUS ROOT REPAIR AND CHONDROPLASTY PATTELA DEC. 01/02/20. PATIENT WEARS BRACE UNLOCKED 70 DEGREES, WBAT ABLE TO WEAN BRACE HENRY. FOR ROOT REPAIRS NO RESISTED ISONTONIC HAMS STRENGTHENING 8WEEKS. MAINTAIN CLOSED CHAIN FLEXION <70 DEGREES. SEE ADVANCE CLINICAL PRACICE GUIDELINES FOR PROGRESSION WITH ROM AND STRENGTHENING - Subjective This 44 y/o female presents physical therapys with right knee meniscus repair. Patient DOI October 20,sliped off 2 bricks fell down causing valus in knee pain on Home Health visit. Patient severe pain return to [facility] did x-rays. [facility] went [facility] then recommended to [facility] ,did MRI showed medial meniscus tear. Thus underwent s/p medial meniscus repair root along with chrondropasty patella on 01/02/[address] Claire. Patient d/c with crutches 6 weeks with IROM brace looked in extension. Patient to ambulate with knee locked into extension. Patient after 2weeks abke to unlock brace into 40 degrres flexion.Most recently seen Feb 16 [place] WBAT and with extension for 1 week,then unlock . Patient is able unlock brace with sitting at 70 degrees. Patient has parathesia anterior tibia. Patient has 2story home 5 steps and 17 stairs 2 nd floor. Patient has some has soem edema. Patient unable to drive and RTW. Patient condtion of surgery affects job demands and housework tasks. Patient has limiations with all ADLS' ,gait ,function and RTW . Patient wean from crutches able to wean from brace as henry. SOCAIL: - Pain Right Knee Pain Intensity (Out of 10): 4 Pain Intensity Range: 10 - Objective POSTURE: mild foward posture. GAIT: ambulates with TROM BRACE unlocked antalgic with decrease stance and ROM. BALANCE GOOD -. AROM 20 -85 degrees supine knee flexion. MMT quads 3/5,hams 3+/5,hip flexion 3+/5,abduction ,ankle 4/5. EDEMA : joint line 41.cm2. QUAD ATOPHIED: 6 above joint line 48 cm2 - Goals Goal 1:: I with with HEP per Guidelines for meniscus repair. Goal Time Frame: 12-16 Weeks Goal 2:: Patient to normailze gait pattern with normal balance. Goal Time Frame: 12-16 Weeks Goal 3:: Patient to improve AROM knee flexion 0-125 degrees supine knee flexion to improve gait. Goal Time Frame: 12-16 Weeks Goal 4:: Patient to increase strength of quads/hams/hip 4/5 to improve function Goal Time Frame: 12-16 Weeks Goal 5:: Patient to RTW and housework tasks with min limiations. Goal Time Frame: 12-16 Weeks Goal 6:: Patient improve LFES score by 10 points or > to impove QOL and function RTW Goal Time Frame: 12-16 Weeks - Rehabilitation Potential Physical Therapy Diagnosis: This 44 y/o patient underwent s/p right knee medial meniscus root repair on 01/02/20. with pain ,decrease ROM flexion /extension,weakness quads/hamstring,decrease gait,balance and RTW thus beifit from skilled PT Rehabilitation Potential: Good - Anticipated Interventions Patient/Client Instruction: Educate patient on: Condition, Plan of Care For the Purpose of:: To decrease pain, To increase ROM, To improve muscle performance and motor function, To improve ability to perform ADL's, To increase tolerance to activity/condition/position, To improve ability of physical actions for home/community/work/leisure, To improve gait and locomotor functions, To improve health of tissue, To decrease soft tissue restriction, To increase flexibility/ROM, To improve endurance, To improve balance, To improve ability to perform tasks related to life management Therapeutic Exercise to Include: Strength training, Endurance training, Balance training, Flexibilty training, Gait and locomotor training, Active ROM Comment: SEE GUIDELINES FOR PROGRESSSION For the Purpose of:: To decrease pain, To increase ROM, To improve muscle performance and motor function, To improve ability to perform ADL's, To increase tolerance to activity/condition/position, To improve performance and independence with ADL's, To improve ability of physical actions for home/community/work/leisure, To improve gait and locomotor functions, To improve health of tissue, To decrease soft tissue restriction, To increase flexibility/ROM, To improve endurance, To improve balance, To reduce risk of recurrence, To improve health and function, To improve ability to perform tasks related to life management Thank you for the opportunity to evaluate your patient. For Medicare and Medicare HMO plans, please review the plan of care and approve it. It will need to be FAXED BACK to us at [phone] for Medicare purposes. For Medicare only, by signing this I certify the plan of care. Please let me know if there are questions or concerns regarding this plan of care. Physician Signature: Date:
--- NOTE | 2020-06-22 14:22 | HP.PT.NRP ---
JOÃO GALVAN was seen in my office for initial evaluation on 02/25/20. The following Plan of Care was established for this patient: Initial Frequency: 2-3x /Week Initial Duration: 4-6 Weeks Patient/Client Instruction: Educate patient on: Condition, Plan of Care For the Purpose of:: To decrease pain, To increase ROM, To improve muscle performance and motor function, To improve ability to perform ADL's, To increase tolerance to activity/condition/position, To improve ability of physical actions for home/community/work/leisure, To improve gait and locomotor functions, To improve health of tissue, To decrease soft tissue restriction, To increase flexibility/ROM, To improve endurance, To improve balance, To improve ability to perform tasks related to life management Therapeutic Exercise to Include: Strength training, Endurance training, Balance training, Flexibilty training, Gait and locomotor training, Active ROM For the Purpose of:: To decrease pain, To increase ROM, To improve muscle performance and motor function, To improve ability to perform ADL's, To increase tolerance to activity/condition/position, To improve performance and independence with ADL's, To improve ability of physical actions for home/community/work/leisure, To improve gait and locomotor functions, To improve health of tissue, To decrease soft tissue restriction, To increase flexibility/ROM, To improve endurance, To improve balance, To reduce risk of recurrence, To improve health and function, To improve ability to perform tasks related to life management This patient was last seen in our office . Pertinent comments regarding their Physical therapy will appear below: Patient seen for PT for s/p MEDIAL MENISCUS ROOT REPAIR,MFC AND CHONDROPLASTY . Patient seen DR released to RTW but cont to have hamstring tenderness and pain. Return to DR if symptoms presist with possible immaging. At this point I will be discontinuing this patient from physical therapy. I would be happy to see this patient again in the future if found appropriate by the physician. Thank you! Matthew Peoples, PT, Cert MDT, OCS
== END 2020-04-09 19:00 | disposition home or self-care (01) ==
LOC: PT 11:30
PROVIDERS: Referring Provider Orthopaedic Surgery; Visit Provider Orthopaedic Surgery
DX: S83.91XD Sprain of unspecified site of right knee, subsequent encounter (principal)
CPT/HCPCS: 97014; 97110; 97161; 97530; G0283